=== PATIENT | female | born 1955 | race Caucasian/White ===

== ENCOUNTER 2022-10-16 10:04 | Inpatient (IN) ==
[2022-10-16] MEDS ORDERED: ALBUT/IPRATROP 3MG/0.5MG NEB 3 ML VIAL NEB STA (10:33)
[2022-10-16 10:54] LABS: Basophils % (auto) 0.8 %; Eosinophils # (auto) 0.03 K/uL (0-0.50); Eosinophils % (auto) 0.2 %; Hematocrit (blood only) 37.1 % (34.1-44.9); Hemoglobin 12.7 g/dl (12.0-16.0); Immature Granulocytes # (auto) 0.04 K/uL (0.00-0.02); Immature Granulocytes % (auto) 0.3 %; Lymphocytes # (auto) 1.56 K/uL (1.2-3.4); Lymphocytes % (auto) 12.4 %; Mean Corpuscular Hemoglobin 33.1 pg (25.0-34.0); Mean Corpuscular Hgb Conc 34.2 g/dL (32.0-36.0); Mean Corpuscular Volume 96.6 fL (80.0-100.0); Mean Platelet Volume 9.5 fL (9.4-12.3); Monocytes # (auto) 1.15 K/uL (0.24-0.82); Monocytes % (auto) 9.1 %; Neutrophils # (auto) 9.75 K/uL (1.4-6.5); Neutrophils % (auto) 77.2 %; Platelet Count 360 K/uL (130-400); RDW Coefficient of Variation 12.3 % (11.5-14.5); RDW Standard Deviation 43.8 fL (36.4-46.3); Red Blood Count 3.84 M/uL (3.93-5.22); White Blood Count 12.63 K/ul (4.8-10.8)
[2022-10-16] MEDS ORDERED: SODIUM CHLORIDE 0.9% 1000ML 500 ML IV ONE (10:56)
--- NOTE | 2022-10-16 10:58 | XRay Report ---
XR chest 1V portable HISTORY: Dyspnea COMPARISON: None. FINDINGS: No pneumothorax. No pleural effusions. The lungs are hyperexpanded with apical predominant emphysematous changes. Mild diffuse interstitial thickening. This is likely chronic. Otherwise, no fo charito lung consolidations to suggest a pneumonia. No evidence for pulmonary edema. There is an old, hea led left clavicle fracture. IMPRESSION: Emphysema and mild interstitial thickening. This is likely chronic. ACT 112: Negative or not required by law. Electronically signed by: Giancarlo Faulkner M.D. 10/16/2022 10:57 AM
[2022-10-16 11:04] LABS: Albumin Globulin Ratio 1.1 (0.9-2); Albumin Level 4.1 gm/dl (3.4-5.0); BUN Creatinine Ratio 12.5 (10-20); Bilirubin,Total 0.7 mg/dl (0.2-1.0); Calcium 9.7 mg/dl (8.5-10.1); Creatinine Clr Calc Pharmacy 84.9 ml/min; Est GFR (African American) 112.6 ml/min; Est GFR (Non-African American) 97.2 ml/min; Globulin 3.7 gm/dl (2.5-4.0); Magnesium 2.1 mg/dl (1.7-2.4); Potassium 3.3 mmol/L (3.5-5.1); Total Protein 7.8 gm/dl (6.0-8.3)
--- NOTE | 2022-10-16 11:05 | Emergency Department Note ---
Impression & Plan Respiratory distress, COPD exacerbation, Tachypnea, Leukocytosis, Hypokalemia ED Provider Note NAME: SHARON LEWIS AGE: 67 SEX: F : 1955 ARRIVES VIA: Ambulance INFORMANT: [Patient][nursing] ED PROVIDER(S): [Ted Houston MD] CHIEF COMPLAINT: Shortness of breath HISTORY OF PRESENT ILLNESS: The patient is a 67-year-old female who presents with complaints of shortness of breath for the last 4 to 5 days. Things just kept getting worse. The patient went to urgent care and was sent from that facility by ambulance to our ER. The patient was given an albuterol neb at urgent care and then 2 DuoNeb's in route. She also received 125 mg of IV Solu-Medrol by EMS. She still feels short of breath. The patient is coughing but this is baseline. She does not typically wear oxygen but does have a history of COPD. She denies any fever or chills. She has no abdominal pain or chest pain. She is not sure why her lungs seem to be worse this last week REVIEW OF SYSTEMS: See HPI for pertinent positives and negatives. A total of ten systems were reviewed and were otherwise negative. PMHx/PSHx: See Below SOCIAL HISTORY: See Below. PHYSICAL EXAM: GENERAL: Patient is in moderate respiratory distress HEENT: No acute trauma, normocephalic atraumatic, mucous membranes moist, no nasal congestion, no scleral icterus. NECK: No stridor, no adenopathy, no meningismus, trachea is midline. LUNGS: Moderate respiratory distress, increased respiratory rate with some accessory muscle use. Wheezing bilaterally with diminished breath sounds bilaterally. Speaks in shorter sentences. HEART: Without murmurs gallops or rubs, regular rate and rhythm. ABDOMEN: Soft, nontender, bowel sounds positive, no peritonitis. EXTREMITIES: No cyanosis or edema, full range of motion of all the joints without pain or difficulty, no signs for acute trauma. There is a boot on the left lower extremity NEUROLOGIC: Oriented x 3, no acute motor or sensory deficits, no focal weakness. SKIN: No rash, no jaundice, no diaphoresis. DIFFERENTIAL DIAGNOSIS: Reactive airway disease, pneumonia, COVID-19, RSV, influenza, pneumothorax, COPD, CHF, infection, cardiac ischemia, pulmonary embolism, bronchitis, as well as other pathologies. EMERGENCY DEPARTMENT COURSE/PROCEDURES: ECG: Indication was shortness of breath. The ECG shows a normal sinus rhythm with a rate of 94. There is some baseline artifact. There is no obvious ST elevation, no PVCs. There is poor R wave progression. The QTc is 455. Continuous Cardiac Monitoring: An order was placed for continuous cardiac monitoring. The monitor shows a rate of 92 with normal sinus rhythm. Critical Care Note: I have personally spent 39 minutes of critical care time in the direct management of this patient. This includes bedside care, interpretation of diagnostic studies, and testing, discussion with consultants, patient, and family members, and other required patient management activities. This 39 minutes is in excess of all separately billable procedures. MEDICAL DECISION MAKING: There is a mild leukocytosis, this could be consistent with infection or the stress of her situation. There was a normal hemoglobin and platelet count. No coagulopathy. Potassium somewhat low at 3.3. No renal failure. No worrisome liver enzyme elevation. ECG showed a normal sinus rhythm, no ischemia. Cardiac enzyme testing x1 was not consistent with acute cardiac injury. Procalcitonin level was not elevated making bacterial infection less likely. COVID, influenza and RSV test were negative. Chest x-ray did not show pneumonia or CHF. Chest CT did not show PE, a potential pneumonia versus bronchitis was seen on the CT imaging. The patient had already received 3 nebulizer treatments. I did give her a fourth treatment with a DuoNeb. She had received Solu-Medrol in route so no additional steroids were given. She was given a 500 cc saline bolus, she was given IV potassium. He received IV ceftriaxone as antibiotic coverage. The patient presents short of breath. She was in respiratory distress. She was aggressively managed. She seems to be improving with the above treatment. I do think a hospital stay is warranted. She appears to have an underlying pneumonia that has flared her COPD. She understands the need to stay in the hospital. I did speak with case management, the on-call hospitalist was consulted. Past Med/Surg History Medical History Anxiety Anxiety COPD (chronic obstructive pulmonary disease) Depression Hyperlipidemia Personal history of alcoholism Tobacco use disorder Surgical History No pertinent past surgical history Family History Mother CHF (congestive heart failure) Father Prostate cancer Aunt Breast cancer Social History Smoking Status: Current every day smoker Tobacco Type: Cigarettes Hx Alcohol Use: Yes Alcohol type: beer Alcohol Intake Frequency: 4 or More x per/Week Alcohol Intake Frequency Comment: 4 beers/day Hx Substance Use: Yes Non-Prescribed Medications: Marijuana Preferred Language: Urdu 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: No Beliefs That Will Affect Care: None Current Living Situation: Alone Feels Safe at Home: Yes Allergies Allergies Allergy/AdvReac Type Severity Reaction Status Date / Time No Known Allergies Allergy Unverified 05/05/21 01:40 Home Meds Home Medications Medication Instructions Recorded Confirmed fluoxetine 40 mg capsule (Prozac) 60 mg PO DAILY 06/12/20 10/16/22 albuterol sulfate 90 mcg/actuation 2 puff inhalation Q4 PRN Shortness 07/12/20 10/16/22 aerosol inhaler Of Breath Or Wheezing hydroxyzine HCl 25 mg tablet 25 mg PO Q6 PRN anxiety 07/13/20 10/16/22 bupropion HCl 100 mg tablet,12 hr 100 mg PO QAM 05/05/21 10/16/22 sustained-release gabapentin 400 mg capsule 400 mg PO TID 05/05/21 10/16/22 atorvastatin 20 mg tablet 20 mg PO DAILY 10/16/22 10/16/22 fluticasone 250 mcg-salmeterol 50 1 ea inhalation BID 10/16/22 10/16/22 mcg/dose blistr powdr for inhalation Results & Data (ED) Vital Signs Vital Signs - 24 hr 10/16/22 10:24 10/16/22 10:23 10/16/22 10:23 Temperature 36.6 C Temperature Source Oral Pulse Rate 92 H Pulse Rate [Apical] Respiratory Rate 28 H Respiratory Effort / Characteristics Labored Labored Short of Breath Respiratory Depth Shallow Shallow Blood Pressure 170/97 H Blood Pressure Mean 121 Pulse Oximetry 98 Oxygen Delivery Method Nasal Cannula Nasal Cannula Nasal Cannula Oxygen Flow Rate 2 2 2 Sepsis Recent Fever Within 48 Hours No Sepsis New/Unexplained Change in Mental Status N/A Sepsis Action Taken by Nursing No Action Required 10/16/22 11:03 Temperature Temperature Source Pulse Rate Pulse Rate [Apical] 95 H Respiratory Rate 25 H Respiratory Effort / Characteristics Labored Respiratory Depth Shallow Blood Pressure Blood Pressure Mean Pulse Oximetry 100 Oxygen Delivery Method Nasal Cannula Oxygen Flow Rate 2 Sepsis Recent Fever Within 48 Hours Sepsis New/Unexplained Change in Mental Status Sepsis Action Taken by [facility] Medications Current Medication List: was personally reviewed by me Laboratory Data Attestation: I reviewed the patient's lab results. Result diagrams: 10/16/22 10:10/16/22 10: Lab Results 10/16/22 10/16/22 10/16/22 Range/Units 10: 10: 10: WBC 12.63 H (4.8-10.8) K/ul RBC 3.84 L (3.93-5.22) M/uL Hgb 12.7 (12.0-16.0) g/dl Hct 37.1 (34.1-44.9) % MCV 96.6 (80.0-100.0) fL MCH 33.1 (25.0-34.0) pg MCHC 34.2 (32.0-36.0) g/dL RDW Std Deviation 43.8 (36.4-46.3) fL RDW Coeff of Reyes 12.3 (11.5-14.5) % Plt Count 360 (130-400) K/uL MPV 9.5 (9.4-12.3) fL Immature Gran % (Auto) 0.3 % Neut % (Auto) 77.2 % Lymph % (Auto) 12.4 % Baxter % (Auto) 9.1 % Eos % (Auto) 0.2 % Baso % (Auto) 0.8 % Neut # (Auto) 9.75 H (1.4-6.5) K/uL Lymph # (Auto) 1.56 (1.2-3.4) K/uL Baxter # (Auto) 1.15 H (0.24-0.82) K/uL Eos # (Auto) 0.03 (0-0.50) K/uL Baso # (Auto) 0.10 (0-0.2) K/uL Immature Gran # (Auto) 0.04 H (0.00-0.02) K/uL PT 10.4 (9.0-12.0) Seconds INR 1.0 (0.9-1.1) APTT 28.5 (21.0-31.0) Seconds PTT Ratio 1.0 Sodium 137 (136-145) mmol/L Potassium 3.3 L (3.5-5.1) mmol/L Chloride 100 (98-107) mmol/L Carbon Dioxide 26 (21-32) mmol/L Anion Gap 11 (3-11) BUN 7 (6-23) mg/dl Creatinine 0.56 L (0.6-1.2) mg/dl Est Cr Clr Drug Dosing 84.9 ml/min Est GFR ( Amer) 112.6 ml/min Est GFR (Non-Af Amer) 97.2 ml/min BUN/Creatinine Ratio 12.5 (10-20) Glucose 134 H (70-99(Fasting)) mg/dl Calcium 9.7 (8.5-10.1) mg/dl Magnesium 2.1 (1.7-2.4) mg/dl Total Bilirubin 0.7 (0.2-1.0) mg/dl AST 11 L (13-39) U/L ALT 9 (7-52) U/L Alkaline Phosphatase 160 H (34-104) U/L Troponin I High Sens 8.2 (0-14) pg/ml Total Protein 7.8 (6.0-8.3) gm/dl Albumin 4.1 (3.4-5.0) gm/dl Globulin 3.7 (2.5-4.0) gm/dl Albumin/Globulin Ratio 1.1 (0.9-2) Procalcitonin (0-0.5) ng/ml SARS-CoV-2 (PCR) (Negative) Influenza Type A (PCR) (Neg) Influenza Type B (PCR) (Neg) RSV (RT-PCR) (Neg) 10/16/22 10/16/22 Range/Units 10:23 10:23 WBC (4.8-10.8) K/ul RBC (3.93-5.22) M/uL Hgb (12.0-16.0) g/dl Hct (34.1-44.9) % MCV (80.0-100.0) fL MCH (25.0-34.0) pg MCHC (32.0-36.0) g/dL RDW Std Deviation (36.4-46.3) fL RDW Coeff of Reyes (11.5-14.5) % Plt Count (130-400) K/uL MPV (9.4-12.3) fL Immature Gran % (Auto) % Neut % (Auto) % Lymph % (Auto) % Baxter % (Auto) % Eos % (Auto) % Baso % (Auto) % Neut # (Auto) (1.4-6.5) K/uL Lymph # (Auto) (1.2-3.4) K/uL Baxter # (Auto) (0.24-0.82) K/uL Eos # (Auto) (0-0.50) K/uL Baso # (Auto) (0-0.2) K/uL Immature Gran # (Auto) (0.00-0.02) K/uL PT (9.0-12.0) Seconds INR (0.9-1.1) APTT (21.0-31.0) Seconds PTT Ratio Sodium (136-145) mmol/L Potassium (3.5-5.1) mmol/L Chloride (98-107) mmol/L Carbon Dioxide (21-32) mmol/L Anion Gap (3-11) BUN (6-23) mg/dl Creatinine (0.6-1.2) mg/dl Est Cr Clr Drug Dosing ml/min Est GFR ( Amer) ml/min Est GFR (Non-Af Amer) ml/min BUN/Creatinine Ratio (10-20) Glucose (70-99(Fasting)) mg/dl Calcium (8.5-10.1) mg/dl Magnesium (1.7-2.4) mg/dl Total Bilirubin (0.2-1.0) mg/dl AST (13-39) U/L ALT (7-52) U/L Alkaline Phosphatase (34-104) U/L Troponin I High Sens (0-14) pg/ml Total Protein (6.0-8.3) gm/dl Albumin (3.4-5.0) gm/dl Globulin (2.5-4.0) gm/dl Albumin/Globulin Ratio (0.9-2) Procalcitonin 0.13 (0-0.5) ng/ml SARS-CoV-2 (PCR) NEGATIVE (Negative) Influenza Type A (PCR) Negative (Neg) Influenza Type B (PCR) Negative (Neg) RSV (RT-PCR) Negative (Neg) Administered Medications Albuterol (Albut/Ipratrop 3mg/0.5mg Neb 3 Ml Vial) 3 ml NEB QIDR PHYLLIS; Protocol Stop: 11/15/22 14:59 Last Admin: 10/16/22 15:20 Dose: 3 ml Documented By: TMH Gabapentin (Gabapentin 400 Mg Cap) 400 mg PO TID PHYLLIS Stop: 11/15/22 14:14 Last Admin: 10/16/22 15:08 Dose: 400 mg Documented By: SUB Hydroxyzine HCl (Hydroxyzine Hcl 25 Mg Tab) 25 mg PO Q6 PRN PRN Reason: anxiety Stop: 11/15/22 13:50 Last Admin: 10/16/22 15:58 Dose: 25 mg Documented By: SUB Azithromycin 500 mg/ Dextrose 255 mls @ 125 mls/hr IV Q24H PHYLLIS Stop: 10/23/22 14:14 Last Admin: 10/16/22 15:09 Dose: 125 mls/hr Documented By: SUB Methylprednisolone 40 mg/ (Syringe) 0.64 mls @ 1.5 mls/min IV Q6H PHYLLIS Stop: 11/15/22 14:14 Last Admin: 10/16/22 15:08 Dose: 1.5 mls/min Documented By: SUB Discontinued Medications Albuterol (Albut/Ipratrop 3mg/0.5mg Neb 3 Ml Vial) 3 ml NEB NOW STA; Protocol Stop: 10/16/22 10:34 Last Admin: 10/16/22 10:57 Dose: 3 ml Documented By: AMS Sodium Chloride (Nss 1000ml) 500 mls @ 999 mls/hr IV .Q31M ONE Stop: 10/16/22 11:26 Last Infusion: 10/16/22 14:16 Dose: 0 mls/hr Documented By: Admin: 10/16/22 11:08 Dose: 999 mls/hr Documented By: HS Potassium Chloride (K Travis / Wtr) 10 meq in 100 mls @ 100 mls/hr IV ONE ONE; Protocol Stop: 10/16/22 12:05 Last Infusion: 10/16/22 14:16 Dose: 0 mls/hr Documented By: Admin: 10/16/22 12:13 Dose: 100 mls/hr Documented By: AMS Ceftriaxone Sodium (Rocephin) 2,000 mg in 70 mls @ 140 mls/hr IV NOW STA Stop: 10/16/22 12:41 Last Infusion: 10/16/22 14:16 Dose: 0 mls/hr Documented By: Admin: 10/16/22 13:29 Dose: 140 mls/hr Documented By: HS Multivitamins 10 ml/ Thiamine HCl 100 mg/ Folic Acid 1 mg/Sodium Chloride 1,011.2 mls @ 500 mls/hr IV .Q2H2M ONE Stop: 10/16/22 16:16 Last Admin: 10/16/22 15:08 Dose: 500 mls/hr Documented By: SUB Ioversol (Optiray 320 500ml) 120 ml IV ONCE ONE Stop: 10/16/22 11:32 Last Admin: 10/16/22 11:32 Dose: 120 ml Documented By: SEJ Imaging Data Radiologist's Impression: Chest X-Ray 10/16/22 10:33 XR chest 1V portable HISTORY: Dyspnea COMPARISON: None. FINDINGS: No pneumothorax. No pleural effusions. The lungs are hyperexpanded with apical predominant emphysematous changes. Mild diffuse interstitial thickening. This is likely chronic. Otherwise, no focal lung consolidations to suggest a pneumonia. No evidence for pulmonary edema. There is an old, healed left clavicle fracture. IMPRESSION: Emphysema and mild interstitial thickening. This is likely chronic. ACT 112: Negative or not required by law. Electronically signed by: Giancarlo Faulkner M.D. 10/16/2022 10:57 AM Chest CTA 10/16/22 10:55 CT angio chest PE protocol CLINICAL HISTORY: PE TECHNIQUE: Multidetector row helical CT of the chest was performed with angiographic protocol. Coronal and sagittal reformations were obtained. Coronal and sagittal MIPS were obtained from the axial data set and were submitted for review. Automated dose lowering techniques and/or adjustment according to patient size were utilized for this exam. CT DOSE: 259.87 mGy.cm Comparison: Comparison is made to chest radiograph 10/16/2022 FINDINGS: Exam is limited by patient motion. Lungs and pleura: Bronchial wall thickening is seen throughout. Scattered g roundglass opacities are seen most prominently in the bilateral upper lobe and left lower lobe. Heart and pericardium: Cardiomegaly is seen with biatrial enlargement. Vessels: No evidence of pulmonary embolism. Incidental note is made of dominant left vertebral artery with miniscule right vertebral artery. Mediastinum and kalyn: Subcentimeter lymph nodes are seen. Chest wall and lower neck: Unremarkable. Abdomen: Unremarkable. Bones: Degenerative changes of the thoracic spine. Old healed rib fractures are seen. Compression deformity of T9 is noted. IMPRESSION: 1. No evidence of pulmonary embolism. 2. Bronchial wall thickening is noted with scattered groundglass opacities, compatible with bronchitis and pneumonia. Follow-up to resolution is recommended. ACT 112: Negative or not required by law. Electronically signed by: Cole Scott M.D. 10/16/2022 12:02 PM Discharge Plan Visit Data Chief Complaint: Shortness of Breath/Dyspnea Stated Complaint: RESP. DIFF. ED Provider: Ted Houston Discharge Problem: Respiratory distress, COPD exacerbation, Tachypnea, Leukocytosis, Hypokalemia Patient Disposition: Admitted As Inpatient Condition: Fair Discharge Instructions Interventions: ED Discharge Assessment Last Done: 10/16/22 13:30
[2022-10-16] MEDS ORDERED: POTASSIUM CHLORIDE / WTR 10 MEQ/100 ML PLCT IV ONE (11:06)
[2022-10-16 11:10] LABS: Troponin I High Sensitivity 8.2 pg/ml (0-14)
[2022-10-16 11:20] LABS: Partial Thromboplastin Time 28.5 Seconds (21.0-31.0); Prothrombin Time 10.4 Seconds (9.0-12.0)
[2022-10-16] MEDS ORDERED: OPTIRAY 320 500ml IV ONE (11:31)
[2022-10-16 11:37] LABS: Influenza A virus by PCR Negative (Neg); Influenza B virus by PCR Negative (Neg); RSV by PCR Negative (Neg); SARS CoV2 RNA(COVID-19)Cepheid NEGATIVE (Negative)
--- NOTE | 2022-10-16 12:03 | CT Scan Report ---
CT angio chest PE protocol CLINICAL HISTORY: PE TECHNIQUE: Multidetector row helical CT of the chest was performed with angiographic protocol. Muller l and sagittal reformations were obtained. Coronal and sagittal MIPS were obtained from the axial vidhya a set and were submitted for review. Automated dose lowering techniques and/or adjustment according to patient size were utilized for this exam. CT DOSE: 259.87 mGy.cm Comparison: Comparison is made to chest radiograph 10/16/2022 FINDINGS: Exam is limited by patient motion. Lungs and pleura: Bronchial wall thickening is seen throughout. Scattered groundglass opacities are s een most prominently in the bilateral upper lobe and left lower lobe. Heart and pericardium: Cardiomegaly is seen with biatrial enlargement. Vessels: No evidence of pulmonary embolism. Incidental note is made of dominant left vertebral artery with miniscule right vertebral artery. Mediastinum and kalyn: Subcentimeter lymph nodes are seen. Chest wall and lower neck: Unremarkable. Abdomen: Unremarkable. Bones: Degenerative changes of the thoracic spine. Old healed rib fractures are seen. Compression def ormity of T9 is noted. IMPRESSION: 1. No evidence of pulmonary embolism. 2. Bronchial wall thickening is noted with scattered groundglass opacities, compatible with bronchit is and pneumonia. Follow-up to resolution is recommended. ACT 112: Negative or not required by law. Electronically signed by: Cole Scott M.D. 10/16/2022 12:02 PM
--- NOTE | 2022-10-16 12:06 | History & Physical Report ---
Date of Service October 16, 2022 Assessment & Plan (1) COPD exacerbation: Plan: Copd exacerbation 2/2 pneumonia in active smoker with underlying health problems and alcoholism. Cont with Solumedrol 40mg IV q6h, scheduled Duonebs, and antibiotics. Will use oxygen, titrating to a goal of 88% saturation. Would remove the oxygen if she is consistently oxygenating >94%. Smoking cessation advised. She reports already receiving her annual flu shot and reports having a Pneumovax in the past, also. (2) Pneumonia: Plan: Cont antibiotics, flutter valve. Sputum culture. Blood cultures. Oxygen s upplementation as needed. Smoking cessation advised. (3) Anxiety: Plan: She reports this is uncontrolled. May become worse if she withdraws from alcohol. Will monitor her closely and cont home antidepressant. (4) Tobacco use disorder: Plan: Nicoderm ordered. Smoking cessation advised. (5) Depression: Plan: chronic, stable. Cont home antidepressant. (6) Hyperlipidemia: Plan: chronic, stable. Patient reports non compliance with atorvastatin because she forgets to take it. Cont atorvastatin daily. (7) DVT prophylaxis: Plan: heparin Full code as per my armen discussion with her on admission. Dispo-to PCU. [facility] Present Illness Chief Complaint: SOB/dyspnea Primary Care Provider: Gray Diehl MD 67 yo F reports SOB x 5 days that is progressive. She has a h/o COPD and has already been treated wtih a nebulized bronchodilator and solumedrol 125mg IV. She is not typically on oxygen and requiring 2LPM via nasal canula today. This morning she used her albuterol and Advair at home and had no relief. She went to [facility] and there she was oxygenating 97% on room air but was so short of breath she was unable to speak in full sentences. EMS was called to bring her to the ER. Symptoms started on Sat, denies fevers, chills, no sick contacts. Can't sleep because she has trouble laying flat as it makes her cough. Explosive stools that are in the am, no diarrhea. Poor appetite recently. Alcohol intake is reported as 5-6 beers/day. She smokes marijuana daily. 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 Reports that her anxiety has not been controlled recently. Walks with a cane. Lives alone. Allergies Allergy/AdvReac Type Severity Reaction Status Date / Time No Known Allergies Allergy Unverified 05/05/21 01:40 Home Medications Medication Instructions Recorded Confirmed Type fluoxetine 40 mg capsule (Prozac) 60 mg PO DAILY 06/12/20 10/16/22 History albuterol sulfate 90 mcg/actuation 2 puff inhalation Q4 PRN Shortness 07/12/20 10/16/22 History aerosol inhaler Of Breath Or Wheezing hydroxyzine HCl 25 mg tablet 25 mg PO Q6 PRN anxiety 07/13/20 10/16/22 History bupropion HCl 100 mg tablet,12 hr 100 mg PO QAM 05/05/21 10/16/22 History sustained-release gabapentin 400 mg capsule 400 mg PO TID 05/05/21 10/16/22 History atorvastatin 20 mg tablet 20 mg PO DAILY 10/16/22 10/16/22 History fluticasone 250 mcg-salmeterol 50 1 ea inhalation BID 10/16/22 10/16/22 History mcg/dose blistr powdr for inhalation Past Med/Surg History Medical History Anxiety Anxiety COPD (chronic obstructive pulmonary disease) Depression Hyperlipidemia Personal history of alcoholism Tobacco use disorder Surgical History No pertinent past surgical history Family History Mother CHF (congestive heart failure) Father Prostate cancer Aunt Breast cancer Social History Smoking Status: Current every day smoker Tobacco Type: Cigarettes Hx Alcohol Use: Yes Alcohol type: beer Alcohol Intake Frequency: 4 or More x per/Week Alcohol Intake Frequency Comment: 4 beers/day Hx Substance Use: Yes Non-Prescribed Medications: Marijuana Preferred Language: [employer] Required: No Beliefs That Will Affect Care: None Current Living Situation: Alone Feels Safe at Home: Yes Review of Systems Review of Systems: All systems were reviewed and negative except as indicated in HPI above. Physical Exam Physical Exam: CONSTITUTIONAL: thin, frail, vitals as above, generally is ill appearing but in no acute distress. EYES: pupils are round and equal bilaterally, normal conjunctivae, no scleral icterus, ENT: external ear and nose normal, thrush on tongue, MMM NECK: trachea midline, RESPIRATORY: wheezing throughout all lung ferguson, mild respiratory distress CARDIOVASCULAR: tachy rate and regular rhythm, S1 and 2 heard without murmurs, gallops or rubs, no JVD, no peripheral edema CHEST: inspection of chest was normal GASTROINTESTINAL: soft, nontender, ND, no guarding MUSCULOSKELETAL: strength 5/5 throughout, able to sit up independently, head is normocephalic and atraumatic SKIN: warm and dry NEUROLOGIC: CN 2-12 grossly intact, no sensory deficit, normal cognition, normal speech PSYCHIATRIC: alert cooperative and oriented to person, place and time. Euthymic mood, makes good eye contact, language grossly intact, recent and remote memory grossly intact. Results & Data Results & Data ([facility]) Vital Signs (Past 12 Hours) Vital Signs Temp Pulse Pulse Resp BP Pulse Ox O2 Del Method 10/16/22 11:03 95 H 25 H 100 Nasal Cannula 10/16/22 10:23 Nasal Cannula 10/16/22 10:23 Nasal Cannula 10/16/22 10:24 36.6 C 92 H 28 H 170/97 H 98 Nasal Cannula O2 Flow Rate 10/16/22 11:03 2 10/16/22 10:23 2 10/16/22 10:23 2 10/16/22 10:24 2 Laboratory Results Short CBC 10/16/22 Range/Units 10:23 WBC 12.63 H (4.8-10.8) K/ul Hgb 12.7 (12.0-16.0) g/dl Hct 37.1 (34.1-44.9) % Plt Count 360 (130-400) K/uL BMP 10/16/22 10:23 Sodium 137 Potassium 3.3 L Chloride 100 Carbon Dioxide 26 BUN 7 Creatinine 0.56 L Glucose 134 H Calcium 9.7 Liver Function 10/16/22 Range/Units 10:23 Total Bilirubin 0.7 (0.2-1.0) mg/dl AST 11 L (13-39) U/L ALT 9 (7-52) U/L Alkaline Phosphatase 160 H (34-104) U/L Albumin 4.1 (3.4-5.0) gm/dl Diagnostic Findings Chest CTA 10/16/22 10:55 CT angio chest PE protocol CLINICAL HISTORY: PE TECHNIQUE: Multidetector row helical CT of the chest was performed with angiographic protocol. Coronal and sagittal reformations were obtained. Coronal and sagittal MIPS were obtained from the axial data set and were submitted for review. Automated dose lowering techniques and/or adjustment according to patient size were utilized for this exam. CT DOSE: 259.87 mGy.cm Comparison: Comparison is made to chest radiograph 10/16/2022 FINDINGS: Exam is limited by patient motion. Lungs and pleura: Bronchial wall thickening is seen throughout. Scattered groundglass opacities are seen most prominently in the bilateral upper lobe and left lower lobe. Heart and pericardium: Cardiomegaly is seen with biatrial enlargement. Vessels: No evidence of pulmonary embolism. Incidental note is made of dominant left vertebral artery with miniscule right vertebral artery. Mediastinum and kalyn: Subcentimeter lymph nodes are seen. Chest wall and lower neck: Unremarkable. Abdomen: Unremarkable. Bones: Degenerative changes of the thoracic spine. Old healed rib fractures are seen. Compression deformity of T9 is noted. IMPRESSION: 1. No evidence of pulmonary embolism. 2. Bronchial wall thickening is noted with scattered groundglass opacities, compatible with bronchitis and pneumonia. Follow-up to resolution is recommended. ACT 112: Negative or not required by law. Electronically signed by: Cole Scott M.D. 10/16/2022 12:02 PM Chest X-Ray 10/16/22 10:33 XR chest 1V portable HISTORY: Dyspnea COMPARISON: None. FINDINGS: No pneumothorax. No pleural effusions. The lungs are hyperexpanded with apical predominant emphysematous changes. Mild diffuse interstitial thickening. This is likely chronic. Otherwise, no focal lung consolidations to suggest a pneumonia. No evidence for pulmonary edema. There is an old, healed left clavicle fracture. IMPRESSION: Emphysema and mild interstitial thickening. This is likely chronic. ACT 112: Negative or not required by law. Electronically signed by: Giancarlo Faulkner M.D. 10/16/2022 10:57 AM Code Status & VTE Plan VTE Prophylaxis Plan VTE Prophylaxis will be ordered: Yes
[2022-10-16] MEDS ORDERED: cefTRIAXone SODIUM 2,000 MG/70 ML BAG IV STA (12:12)
--- NOTE | 2022-10-16 12:23 | Electrocardiogram Report ---
Test Reason : Blood Pressure : / mmHG Vent. Rate : 094 BPM Atrial Rate : 094 BPM P-R Int : 168 ms QRS Dur : 070 ms QT Int : 364 ms P-R-T Axes : 076 026 091 degrees QTc Int : 455 ms Poor data quality, interpretation may be adversely affected Normal sinus rhythm Diffuse Minor Nonspecific T wave abnormality Abnormal ECG No previous ECGs available Confirmed by Toñito Pugh ([id number]) on 10/16/2022 12:23:26 PM Referred By: Confirmed By:Toñito Pugh
[2022-10-16] MEDS ORDERED: LORazepam 1 MG TAB PO PRN (13:51)
[2022-10-16] MEDS ORDERED: MULTI-VITAMIN INFUSION 10 ML, THIAMINE HCL 100 MG, FOLIC ACID 1 MG in SODIUM CHLORIDE 0... IV ONE (14:15)
[2022-10-16] MEDS: methylPREDNISolone 40 MG in SYRINGE 0 ML IV SCH ×2 (15:08→19:16)
[2022-10-16] MEDS: GABAPENTIN 400 MG CAP PO SCH ×2 (15:08→20:38)
[2022-10-16] MEDS: AZITHROMYCIN 500 MG in DEXTROSE 5% 250 ML IV SCH (15:09)
[2022-10-16] MEDS: ALBUT/IPRATROP 3MG/0.5MG NEB 3 ML VIAL NEB SCH ×2 (15:20→19:10)
[2022-10-16] MEDS: hydrOXYzine HCl 25 MG TAB PO PRN ×2 (15:58→20:38)
[2022-10-16 16:44] LABS: Appearance Urine Clear (Clear); Bilirubin Urine Negative (Negative); Blood Urine Negative (Negative); Color Urine Yellow; Glucose Urine UA 1+ (Negative); Ketones Urine Negative (Negative); Leukocyte Esterase Urine Negative (Negative); Nitrite Urine Negative (Negative); Protein Urine Negative (Negative); Specific Gravity Urine 1.018 (1.000-1.030); Urobilinogen Urine Negative (Negative); pH Urine 6.5 (4.5-7.5)
[2022-10-16] MEDS: NYSTATIN SUSP 500,000 U/5 ML UDC PO SCH ×2 (17:29→20:38)
[2022-10-16] MEDS: HEPARIN SOD 5,000 UNIT/0.5 ML VIAL SQ SCH (20:38)
[2022-10-17] MEDS: methylPREDNISolone 40 MG in SYRINGE 0 ML IV SCH ×4 (01:59→23:31)
[2022-10-17] MEDS: hydrOXYzine HCl 25 MG TAB PO PRN (01:59)
[2022-10-17] MEDS ORDERED: LORazepam 0.5 MG in SYRINGE 0 ML IV PRN (02:24)
[2022-10-17] MEDS ORDERED: Ativan IV Alcohol Withdrawal--Active Protocol IV PRN ×2 (02:24→09:54)
[2022-10-17] MEDS ORDERED: LORazepam 1 MG in SYRINGE 0 ML IV PRN ×2 (02:24→09:54)
[2022-10-17] MEDS ORDERED: LORazepam 2 MG in SYRINGE 0 ML IV PRN ×2 (02:24→09:54)
[2022-10-17 04:54] LABS: Base Excess ABG -0.8 mEq/L (-9-1.8); HCO3 ABG 24 mmol/L (19-24); Oxygen Saturation ABG 98.5 % (90-95); PCO2 ABG 41 mmHg (35-46); PO2 ABG 186 mmHg (80-95); pH ABG 7.38 (7.35-7.45)
[2022-10-17 04:59] LABS: Allen Test Pos (Pos)
[2022-10-17 06:30] LABS: Hematocrit (blood only) 35.3 % (34.1-44.9); Hemoglobin 11.9 g/dl (12.0-16.0); Mean Corpuscular Hemoglobin 32.4 pg (25.0-34.0); Mean Corpuscular Hgb Conc 33.7 g/dL (32.0-36.0); Mean Corpuscular Volume 96.2 fL (80.0-100.0); Mean Platelet Volume 9.4 fL (9.4-12.3); Platelet Count 369 K/uL (130-400); RDW Coefficient of Variation 12.2 % (11.5-14.5); RDW Standard Deviation 43.3 fL (36.4-46.3); Red Blood Count 3.67 M/uL (3.93-5.22); White Blood Count 9.91 K/ul (4.8-10.8)
[2022-10-17 06:44] LABS: BUN Creatinine Ratio 16.3 (10-20); Calcium 9.2 mg/dl (8.5-10.1); Creatinine Clr Calc Pharmacy 85.6 ml/min; Est GFR (African American) 117.7 ml/min; Est GFR (Non-African American) 101.5 ml/min; Potassium 3.4 mmol/L (3.5-5.1)
[2022-10-17] MEDS: ALBUT/IPRATROP 3MG/0.5MG NEB 3 ML VIAL NEB SCH ×4 (07:06→20:00)
[2022-10-17] MEDS: NYSTATIN SUSP 500,000 U/5 ML UDC PO SCH ×4 (08:32→20:50)
[2022-10-17] MEDS: FOLIC ACID 1 MG TAB PO SCH (08:33)
[2022-10-17] MEDS: ATORVASTATIN 20 MG TAB PO SCH (08:33)
[2022-10-17] MEDS: THIAMINE HCL 100 MG TAB PO SCH (08:33)
[2022-10-17] MEDS: FLUTICASONE/VILANTEROL 100/25MCG 14 PUFFS/INHALER INH SCH (08:33)
[2022-10-17] MEDS: GABAPENTIN 400 MG CAP PO SCH (08:34)
[2022-10-17] MEDS: HEPARIN SOD 5,000 UNIT/0.5 ML VIAL SQ SCH ×2 (08:34→20:52)
[2022-10-17] MEDS: FLUoxetine HCL 20 MG CAP PO SCH (08:34)
[2022-10-17] MEDS: buPROPion SR 100 MG TABCR PO SCH (08:34)
[2022-10-17] MEDS ORDERED: ENOXAPARIN INJ 40 MG/0.4 ML SYR SQ SCH (09:00)
[2022-10-17] MEDS: cefTRIAXone SODIUM 1,000 MG in DEXTROSE 5% 50 ML IV SCH (09:35)
--- NOTE | 2022-10-17 09:53 | Hospitalist Progress Note ---
Date of Service October 17, 2022 Assessment & Plan (1) COPD exacerbation: Plan: Acute respiratory failure, with Hypoxia per admitting [facility] notes with addendum: Copd exacerbation 2/2 pneumonia in active smoker with underlying health problems and alcoholism. Cont with Solumedrol 40mg IV q6h, scheduled Duonebs, and antibiotics. Will use oxygen, titrating to a goal of 88% saturation. Would remove the oxygen if she is consistently oxygenating >94%. Smoking cessation advised. She reports already receiving her annual flu shot and reports having a Pneumovax in the past, also. 10/17 Seems to be clinically improving Continue DuoNeb 4 times daily, Solu-Medrol 40 every 8 hours, management of pneumonia per below (2) Pneumonia: Plan: Sputum culture: Pending Blood cultures: Pending Continue ceftriaxone plus azithromycin (3) Anxiety: Plan: Alcohol use Last drink 2 days ago Drinks 5 to 6 cans of beer per day Start gabapentin protocol with as needed Ativan Monitor closely (4) Tobacco use disorder: Plan: Nicoderm ordered. Smoking cessation advised. (5) Depression: Plan: chronic, stable. Cont home antidepressant. (6) Hyperlipidemia: Plan: chronic, stable. Patient reports non compliance with atorvastatin because she forgets to take it. Cont atorvastatin daily. (7) DVT prophylaxis: Plan: heparin Full code as per my armen discussion with her on admission. Dispo-anticipate discharge to home medically stable plan of care discussed with patient in detail and at length all questions answered she is understanding, agreeable, comfortable with the plan of care Admission and Anticipated Discharge Date Admission Date: October 16, 2022 Subjective Follow-up for COPD exacerbation, pneumonia, etc. Seen resting in bedside chair, comfortable, not distressed On 2 L of oxygen via nasal cannula States she feels improved today compared to yesterday Breathing starting to improve Reports productive cough Able to expectorate sputum better No chest pain, palpitation, dizziness Reports feeling somewhat anxious denies hallucinations, sweating Review of Systems Review of Systems: all noted and negative except for above Physical Exam Physical Exam: General- oriented x 3, not in distress, speaks in sentences with no effort or accessory muscle use Eyes- anicteric Neck- no JVD Lungs-mild wheezing bilaterally, with some crackles Good air entry bilaterally Heart- normal rate, regular rhythm; no murmurs Abdomen- normal bowel sounds, nondistended, soft, nontender Extremities- no pretibial edema, no calf tenderness Neuro- alert, oriented x 3; no gross focal neurologic deficits Skin- warm & dry Results & Data Results & Data ([facility]) Vital Signs (Past 12 Hours) Vital Signs Temp Pulse Pulse Resp BP Pulse Ox O2 Del Method 10/17/22 08:16 36.5 C 104 H 18 163/81 H 99 Nasal Cannula 10/17/22 08:00 Oxymask 10/17/22 07:50 91 H 10/17/22 07:08 95 H 22 95 Oxymask 10/17/22 02:27 36.8 C 91 H 20 127/88 98 Oxymask 10/17/22 02:15 36.3 C L 110 H 40 H 215/122 H 97 Oxymask 10/17/22 00:00 88 10/16/22 23:00 36.6 C 85 20 163/74 H 98 Oxymask O2 Flow Rate 10/17/22 08:16 3 10/17/22 08:00 10/17/22 07:50 10/17/22 07:08 5 10/17/22 02:27 6 10/17/22 02:15 6 10/17/22 00:00 10/16/22 23:00 6 all noted and reviewed including below
[2022-10-17] MEDS ORDERED: GABAPENTIN 800 MG TAB PO ONE (09:54)
[2022-10-17] MEDS ORDERED: GABAPENTIN 1200MG ALCOHOL WITHDRAWAL LOAD PO STA (09:54)
[2022-10-17] MEDS ORDERED: Ativan PO Alcohol Withdrawal--Active Protocol PO PRN (09:54)
[2022-10-17] MEDS ORDERED: LORazepam 3 MG in SYRINGE 0 ML IV PRN (09:54)
[2022-10-17] MEDS: AZITHROMYCIN 500 MG in DEXTROSE 5% 250 ML IV SCH (14:51)
[2022-10-17] MEDS: GABAPENTIN 600 MG TAB PO SCH ×2 (16:13→20:51)
[2022-10-17] MEDS: LORazepam 0.5 MG TAB PO PRN ×2 (16:25→20:50)
[2022-10-18] MEDS: LORazepam 0.5 MG TAB PO PRN ×4 (02:46→20:33)
[2022-10-18] MEDS: NICOTINE 21 MG/24 HR TDSY TD SCH (05:41)
[2022-10-18] MEDS: GABAPENTIN 600 MG TAB PO SCH ×3 (05:42→20:34)
[2022-10-18] MEDS: ALBUT/IPRATROP 3MG/0.5MG NEB 3 ML VIAL NEB SCH ×4 (06:58→20:05)
[2022-10-18] MEDS ORDERED: cloNIDine HCL 0.1 MG TAB PO ONE (07:06)
[2022-10-18] MEDS: FLUTICASONE/VILANTEROL 100/25MCG 14 PUFFS/INHALER INH SCH (08:27)
[2022-10-18] MEDS: cefTRIAXone SODIUM 1,000 MG in DEXTROSE 5% 50 ML IV SCH (08:31)
[2022-10-18] MEDS: HEPARIN SOD 5,000 UNIT/0.5 ML VIAL SQ SCH ×2 (08:32→20:33)
[2022-10-18] MEDS: methylPREDNISolone 40 MG in SYRINGE 0 ML IV SCH ×2 (08:39→19:56)
[2022-10-18] MEDS: ATORVASTATIN 20 MG TAB PO SCH (08:41)
[2022-10-18] MEDS: FOLIC ACID 1 MG TAB PO SCH (08:41)
[2022-10-18] MEDS: THIAMINE HCL 100 MG TAB PO SCH (08:41)
[2022-10-18] MEDS: buPROPion SR 100 MG TABCR PO SCH (08:41)
[2022-10-18] MEDS: FLUoxetine HCL 20 MG CAP PO SCH (08:41)
[2022-10-18] MEDS: NYSTATIN SUSP 500,000 U/5 ML UDC PO SCH ×4 (08:41→20:33)
[2022-10-18] MEDS: AZITHROMYCIN 500 MG in DEXTROSE 5% 250 ML IV SCH (13:47)
--- NOTE | 2022-10-18 15:32 | Hospitalist Progress Note ---
Date of Service October 18, 2022 Assessment & Plan (1) COPD exacerbation: Plan: Acute respiratory failure, with Hypoxia per admitting [facility] notes with addendum: Copd exacerbation 2/2 pneumonia in active smoker with underlying health problems and alcoholism. Cont with Solumedrol 40mg IV q6h, scheduled Duonebs, and antibiotics. Will use oxygen, titrating to a goal of 88% saturation. Would remove the oxygen if she is consistently oxygenating >94%. Smoking cessation advised. She reports already receiving her annual flu shot and reports having a Pneumovax in the past, also. 10/18 Continues to improve clinically, off oxygen supplement Still has some wheezing bilaterally Continue DuoNeb 4 times daily, Solu-Medrol 40 milligrams IV daily, management of pneumonia per below (2) Pneumonia: Plan: Sputum culture: Moraxella, sensitivities pending Blood cultures: Pending Continue ceftriaxone plus azithromycin (3) Anxiety: Plan: Alcohol use Last drink 3 days ago Drinks 5 to 6 cans of beer per day No overt signs and symptoms of alcohol withdrawal Continue gabapentin protocol with as needed Ativan Monitor closely Left ankle pain Reports multiple surgeries on the left ankle Possible reactive arthritis: Check left ankle x-ray Lidoderm patch (4) Tobacco use disorder: Plan: Nicoderm ordered. Smoking cessation advised. (5) Depression: Plan: chronic, stable. Cont home antidepressant. (6) Hyperlipidemia: Plan: chronic, stable. Patient reports non compliance with atorvastatin because she forgets to take it. Cont atorvastatin daily. (7) DVT prophylaxis: Plan: heparin Full code as per my armen discussion with her on admission. Dispo-anticipate discharge to home medically stable plan of care discussed with patient in detail and at length all questions answered she is understanding, agreeable, comfortable with the plan of care Admission and Anticipated Discharge Date Admission Date: October 16, 2022 Subjective Follow-up for COPD exacerbation, pneumonia, etc. Seen sitting up in bed, comfortable, watching TV, not in distress States she continues to feel improved overall Still having productive cough, but no shortness of breath No chest pain No fevers or chills, abdominal pain, nausea vomiting Still reports left ankle pain No other symptom Review of Systems Review of Systems: all noted and negative except for above Physical Exam Physical Exam: General- oriented x 3, not in distress, speaks in sentences with no effort or accessory muscle use Eyes- anicteric Neck- no JVD Lungs-positive mild wheeze, bilaterally, no crackles Heart- normal rate, regular rhythm; no murmurs Abdomen- normal bowel sounds, nondistended, soft, nontender Extremities- no pretibial edema, no calf tenderness Positive left ankle bony protuberance, decreased range of motion secondary to pain, but no erythema/warmth/tenderness Neuro- alert, oriented x 3; no gross focal neurologic deficits Skin- warm & dry Results & Data Results & Data ([facility]) Vital Signs (Past 12 Hours) Vital Signs Temp Pulse Resp BP Pulse Ox O2 Del Method O2 Flow Rate 10/18/22 14:52 87 18 96 Room Air 10/18/22 12:21 36.8 C 93 H 18 128/79 93 Room Air 10/18/22 11:09 Room Air 10/18/22 10:37 68 18 98 Room Air 10/18/22 08:15 122/80 10/18/22 06:59 79 17 97 Room Air 10/18/22 06:40 36.6 C 87 20 190/104 H 96 Nasal Cannula 2 10/18/22 04:15 36.5 C 82 23 178/96 H 95 Nasal Cannula 3 all noted and reviewed including below
--- NOTE | 2022-10-18 18:10 | XRay Report ---
XR ankle LT 2V CLINICAL HISTORY: Ankle pain, rule out fracture COMPARISON: Left foot radiographs July 12, 2020. FINDINGS: Two medial malleolar screws are in place. Ankle soft tissue swelling is present. There is an old, healed fracture of the distal left fibula. Note is made of mixed lucency and sclerosis of the distal left tibia, new since prior radiographs. A lucency of the anterior distal left tibia on later al projection was also not not evident on radiographs July 12, 2020. This may reflect a subacute fr acture. Subchondral collapse within the tibial plafond is noted. Talar dome is intact. IMPRESSION: 1. Status post medial malleolar internal fixation. Old, healed distal left fibular fracture. 2. A lucency of the distal anterior left tibia. This favors a subacute to chronic fracture. 3. Lucency and sclerosis of the distal left tibia with apparent subchondral collapse of the tibial pl afond, new since prior foot radiographs. The findings favor a posttraumatic etiology with healing dis placed fracture. Although less likely, an infectious process could have a similar imaging appearance. Findings could be correlated with clinical evidence for an infectious process. ACT 112: Negative or not required by law. Electronically signed by: Michael Velázquez M.D. 10/18/2022 6:07 PM
[2022-10-18] MEDS: ACETAMINOPHEN 325 MG TAB PO PRN (20:41)
[2022-10-19] MEDS: LORazepam 0.5 MG TAB PO PRN ×4 (01:17→20:10)
[2022-10-19] MEDS: hydrOXYzine HCl 25 MG TAB PO PRN ×2 (04:16→20:10)
[2022-10-19] MEDS: ACETAMINOPHEN 325 MG TAB PO PRN ×2 (05:49→20:10)
[2022-10-19] MEDS: ALBUT/IPRATROP 3MG/0.5MG NEB 3 ML VIAL NEB SCH ×4 (06:53→19:53)
[2022-10-19] MEDS: FOLIC ACID 1 MG TAB PO SCH (08:53)
[2022-10-19] MEDS: ATORVASTATIN 20 MG TAB PO SCH (08:53)
[2022-10-19] MEDS: methylPREDNISolone 40 MG in SYRINGE 0 ML IV SCH (08:53)
[2022-10-19] MEDS: buPROPion SR 100 MG TABCR PO SCH (08:53)
[2022-10-19] MEDS: NYSTATIN SUSP 500,000 U/5 ML UDC PO SCH ×4 (08:53→20:10)
[2022-10-19] MEDS: HEPARIN SOD 5,000 UNIT/0.5 ML VIAL SQ SCH ×2 (08:53→20:11)
[2022-10-19] MEDS: FLUoxetine HCL 20 MG CAP PO SCH (08:53)
[2022-10-19] MEDS: THIAMINE HCL 100 MG TAB PO SCH (08:53)
[2022-10-19] MEDS: cefTRIAXone SODIUM 1,000 MG in DEXTROSE 5% 50 ML IV SCH (08:54)
[2022-10-19] MEDS: FLUTICASONE/VILANTEROL 100/25MCG 14 PUFFS/INHALER INH SCH (08:54)
[2022-10-19] MEDS: NICOTINE 21 MG/24 HR TDSY TD SCH (08:55)
[2022-10-19] MEDS: GABAPENTIN 600 MG TAB PO SCH ×2 (09:45→20:11)
[2022-10-19] MEDS: AZITHROMYCIN 500 MG in DEXTROSE 5% 250 ML IV SCH (13:46)
--- NOTE | 2022-10-19 14:01 | Hospitalist Progress Note ---
Date of Service October 19, 2022 Assessment & Plan (1) COPD exacerbation: Plan: Acute respiratory failure, with Hypoxia per admitting [facility] notes with addendum: Copd exacerbation 2/2 pneumonia in active smoker with underlying health problems and alcoholism. Cont with Solumedrol 40mg IV q6h, scheduled Duonebs, and antibiotics. Will use oxygen, titrating to a goal of 88% saturation. Would remove the oxygen if she is consistently oxygenating >94%. Smoking cessation advised. She reports already receiving her annual flu shot and reports having a Pneumovax in the past, also. 10/19 Continues to improve clinically, off oxygen supplement wheezing mostly resolved Continue DuoNeb 4 times daily, Solu-Medrol 40 milligrams IV daily--> prednisone 40mg daily, taper; management of pneumonia per below (2) Pneumonia: Plan: Sputum culture: Moraxella, no sensitivities Blood cultures: negative so far Continue ceftriaxone plus azithromycin (3) Anxiety: Plan: Alcohol use Last drink 3 days ago Drinks 5 to 6 cans of beer per day No overt signs and symptoms of alcohol withdrawal Continue gabapentin protocol with as needed Ativan Monitor closely Left ankle pain Reports multiple surgeries on the left ankle Possible reactive arthritis Check left ankle x-ray: 1. Status post medial malleolar internal fixation. Old, healed distal left fibular fracture. 2. A lucency of the distal anterior left tibia. This favors a subacute to chronic fracture. 3. Lucency and sclerosis of the distal left tibia with apparent subchondral collapse of the tibial plafond, new since prior foot radiographs. The findings favor a posttraumatic etiology with healing displaced fracture. Although less likely, an infectious process could have a similar imaging appearance. Findings could be correlated with clinical evidence for an infectious process. Ortho consulted Lidoderm patch (4) Tobacco use disorder: Plan: Nicoderm ordered. Smoking cessation advised. (5) Depression: Plan: chronic, stable. Cont home antidepressant. (6) Hyperlipidemia: Plan: chronic, stable. Patient reports non compliance with atorvastatin because she forgets to take it. Cont atorvastatin daily. (7) DVT prophylaxis: Plan: heparin Full code as per my armen discussion with her on admission. Dispo-anticipate discharge to home medically stable plan of care discussed with patient in detail and at length all questions answered she is understanding, agreeable, comfortable with the plan of care Admission and Anticipated Discharge Date Admission Date: October 16, 2022 Subjective ff up for COPD exacerbation, pneumonia, etc seen resting in bed, comfortable states she continues to feel improved daily breathing is improving less cough no chest pain still has L ankle pain, worse with walking difficult to ambulate as per patient no other symptoms Review of Systems Review of Systems: all noted and negative except for above Physical Exam Physical Exam: General- oriented x 3, not in distress, speaks in sentences with no effort or accessory muscle use Eyes- anicteric Neck- no JVD Lungs- diminished but clear BS bilaterally, occasional rhonchi Heart- normal rate, regular rhythm; no murmurs Abdomen- normal bowel sounds, nondistended, soft, nontender Extremities- no pretibial edema, no calf tenderness L ankle: (+) bony protruberance- mild warmth Neuro- alert, oriented x 3; no gross focal neurologic deficits Skin- warm & dry Results & Data Results & Data ([facility]) Vital Signs (Past 12 Hours) Vital Signs Temp Pulse Pulse Resp BP Pulse Ox O2 Del Method 10/19/22 12:31 37.0 C 79 20 155/68 H 96 Room Air 10/19/22 11:00 72 18 96 Room Air 10/19/22 08:00 Room Air 10/19/22 08:00 36.5 C 79 20 155/68 H 97 Room Air 10/19/22 06:53 78 18 95 Room Air 10/19/22 05:25 36.4 C L 88 16 165/73 H 92 Room Air 10/19/22 02:05 79 all noted and reviewed including below
[2022-10-20] MEDS: LORazepam 0.5 MG TAB PO PRN ×3 (01:10→14:07)
[2022-10-20] MEDS: ACETAMINOPHEN 325 MG TAB PO PRN (04:37)
[2022-10-20] MEDS: hydrOXYzine HCl 25 MG TAB PO PRN (04:38)
[2022-10-20] MEDS: ALBUT/IPRATROP 3MG/0.5MG NEB 3 ML VIAL NEB SCH ×2 (07:06→09:55)
[2022-10-20] MEDS: FOLIC ACID 1 MG TAB PO SCH (08:50)
[2022-10-20] MEDS: buPROPion SR 100 MG TABCR PO SCH (08:50)
[2022-10-20] MEDS: NYSTATIN SUSP 500,000 U/5 ML UDC PO SCH ×2 (08:50→12:45)
[2022-10-20] MEDS: THIAMINE HCL 100 MG TAB PO SCH (08:50)
[2022-10-20] MEDS: HEPARIN SOD 5,000 UNIT/0.5 ML VIAL SQ SCH (08:50)
[2022-10-20] MEDS: ATORVASTATIN 20 MG TAB PO SCH (08:50)
[2022-10-20] MEDS: FLUoxetine HCL 20 MG CAP PO SCH (08:50)
[2022-10-20] MEDS: NICOTINE 21 MG/24 HR TDSY TD SCH (08:50)
[2022-10-20] MEDS: cefTRIAXone SODIUM 1,000 MG in DEXTROSE 5% 50 ML IV SCH (08:51)
[2022-10-20] MEDS: FLUTICASONE/VILANTEROL 100/25MCG 14 PUFFS/INHALER INH SCH (08:51)
[2022-10-20] MEDS ORDERED: predniSONE 20 MG TAB PO SCH (09:00)
--- NOTE | 2022-10-20 09:39 | Orthopedic Consultation ---
Date of Consultation October 20, 2022 Assessment & Plan (1) Arthritis of left ankle: 67 year old female with left ankle acute on chronic severe arthritis -Recommend ice for swelling/ pain -Pain control with NSAIDs or steroids for acute arthritic flare if medically able, alternating with Tylenol, lidocaine patches -Pt can continue use of cam boot as needed for comfort and stability, WBAT -PT/OT to assist with gait training and ROM ankle to help avoid stiffness -Pt seen and evaluated with Dr Castro who is in agreement with this plan. Would like patient to follow up with foot/ankle specialist in [facility] if patient prefers somewhere closer. -Will sign off for now, please TigerText with any questions or concerns Supervising Physician Co-Signing Physician Notes I, Dr. Castro, saw and examined the patient and discussed the management with my PA. I reviewed my PAs note and agree with the documented findings and the plan of care I developed. History of Present Illness Reason for Consultation: Left ankle pain Attending Physician: Adam Phipps MD History of Present Illness Pt seen and examined bedside. She was admitted last week for COPD exacerbation and pneumonia. Since her stay she has c/o left ankle pain. She has had left ankle pain chronically for years now. She reports multiple surgeries on her ankle. She denies any new injury or trauma. She has been wearing a cam boot because walking in regular shoes bothers her. She denies swelling, redness or warmth. She denies any numbness or tingling. Allergies Allergy/AdvReac Type Severity Reaction Status Date / Time No Known Allergies Allergy Unverified 05/05/21 01:40 Home Medications Medication Instructions Recorded Confirmed Type fluoxetine 40 mg capsule (Prozac) 60 mg PO DAILY 06/12/20 10/16/22 History albuterol sulfate 90 mcg/actuation 2 puff inhalation Q4 PRN Shortness 07/12/20 10/16/22 History aerosol inhaler Of Breath Or Wheezing hydroxyzine HCl 25 mg tablet 25 mg PO Q6 PRN anxiety 07/13/20 10/16/22 History bupropion HCl 100 mg tablet,12 hr 100 mg PO QAM 05/05/21 10/16/22 History sustained-release gabapentin 400 mg capsule 400 mg PO TID 05/05/21 10/16/22 History atorvastatin 20 mg tablet 20 mg PO DAILY 10/16/22 10/16/22 History fluticasone 250 mcg-salmeterol 50 1 ea inhalation BID 10/16/22 10/16/22 History mcg/dose blistr powdr for inhalation Patient History Medical History Anxiety Anxiety COPD (chronic obstructive pulmonary disease) Depression Hyperlipidemia Personal history of alcoholism Tobacco use disorder Surgical History No pertinent past surgical history Family History Mother CHF (congestive heart failure) Father Prostate cancer Aunt Breast cancer Social History Smoking Status: Current every day smoker Tobacco Type: Cigarettes Hx Alcohol Use: Yes Alcohol type: beer Alcohol Intake Frequency: 4 or More x per/Week Alcohol Intake Frequency Comment: 4 beers/day Hx Substance Use: Yes Non-Prescribed Medications: Marijuana Preferred Language: Albanian Communication Ability: Effective 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 There is no erythema, warmth or breaks in the skin. Patient is able to DF/PF and wiggle all 5 digits. NVI with sensation to light touch and 2+ DP pulse present. Results & Data ([facility]) Vital Signs (Past 12 Hours) Vital Signs Temp Pulse Pulse Pulse Resp BP Pulse Ox 10/20/22 07:07 85 18 97 10/20/22 06:46 37.1 C 79 18 142/83 H 91 10/20/22 04:23 37.0 C 93 H 23 176/83 H 90 10/19/22 23:42 77 10/19/22 23:23 10/19/22 23:07 37 C 84 22 144/80 H 94 O2 Del Method 10/20/22 07:07 Room Air 10/20/22 06:46 Room Air 11/21/22 04:23 Room Air 10/19/22 23:42 10/19/22 23:23 Room Air 10/19/22 23:07 Room Air Diagnostic Findings XR ankle LT 2V 10/18/22 IMPRESSION: 1. Status post medial malleolar internal fixation. Old, healed distal left fibular fracture. 2. A lucency of the distal anterior left tibia. This favors a subacute to chronic fracture. 3. Lucency and sclerosis of the distal left tibia with apparent subchondral collapse of the tibial plafond, new since prior foot radiographs. The findings favor a posttraumatic etiology with healing displaced fracture. Although less likely, an infectious process could have a similar imaging appearance. Findings could be correlated with clinical evidence for an infectious process.
[2022-10-20] MEDS: AZITHROMYCIN 500 MG in DEXTROSE 5% 250 ML IV SCH (12:45)
--- NOTE | 2022-10-20 13:48 | Hospitalist Progress Note ---
Date of Service October 20, 2022 Assessment & Plan (1) COPD exacerbation: Plan: Acute respiratory failure, with Hypoxia Copd exacerbation 2/2 pneumonia in active smoker with underlying health problems and alcoholism. Patient given Solu-Medrol IV, then transition to prednisone Also given duo nebs 4 times daily Wheezing resolved Weaned off oxygen Continue usual inhalers at home (2) Pneumonia: Plan: CT chest: 1. No evidence of pulmonary embolism. 2. Bronchial wall thickening is noted with scattered groundglass opacities, compatible with bronchitis and pneumonia. Follow-up to resolution is recommended. Sputum culture: Moraxella, no sensitivities Blood cultures: negative Patient given 5-day course of ceftriaxone plus azithromycin Discharged on: Cefdinir 300 mg twice daily x5 days Doxycycline 100 mg twice daily x3 days (3) Anxiety: Plan: Alcohol use Drinks 5 to 6 cans of beer per day Placed on alcohol withdrawal protocol No overt signs and symptoms of alcohol withdrawal LEFT ANKLE PAIN Reports multiple surgeries on the left ankle Possible reactive arthritis Check left ankle x-ray: 1. Status post medial malleolar internal fixation. Old, healed distal left fibular fracture. 2. A lucency of the distal anterior left tibia. This favors a subacute to chronic fracture. 3. Lucency and sclerosis of the distal left tibia with apparent subchondral collapse of the tibial plafond, new since prior foot radiographs. The findings favor a posttraumatic etiology with healing displaced fracture. Although less likely, an infectious process could have a similar imaging appearance. Findings could be correlated with clinical evidence for an infectious process. Ortho consulted: Does not recommend surgical intervention at this point, continue using boot, cane, weightbearing as tolerated, follow-up with Ortho in 2 weeks Lidoderm patch (4) Tobacco use disorder: Plan: Nicoderm ordered. Smoking cessation advised. (5) Depression: Plan: chronic, stable. Cont home antidepressant. (6) Hyperlipidemia: Plan: chronic, stable. Patient reports non compliance with atorvastatin because she forgets to take it. Cont atorvastatin daily. (7) DVT prophylaxis: Plan: heparin given Disposition Discharge to home Follow-up with PCP in 1 week plan of care discussed with patient in detail and at length all questions answered she is understanding, agreeable, comfortable with the plan of care Admission and Anticipated Discharge Date Admission Date: October 16, 2022 Subjective Follow-up for COPD exacerbation, pneumonia, etc. Seen sitting up in bed, comfortable, watching TV, not in distress With peers States she feels much better overall Breathing is good, no cough No fevers or chills Left ankle pain about the same Back ambulating fine No other symptoms States she is ready and would like to be discharged today if possible Review of Systems Review of Systems: all noted and negative except for above Physical Exam Physical Exam: General- oriented x 3, not in distress, speaks in sentences with no effort or accessory muscle use Eyes- anicteric Neck- no JVD Lungs- clear breath sounds bilaterally, no crackles or wheezes Heart- normal rate, regular rhythm; no murmurs Abdomen- normal bowel sounds, nondistended, soft, no tenderness Extremities- no pretibial edema, no calf tenderness Neuro- alert, oriented x 3; no gross focal neurologic deficits Skin- warm & dry Results & Data Results & Data ([facility]) Vital Signs (Past 12 Hours) Vital Signs Temp Pulse Pulse Pulse Pulse Pulse Resp 10/20/22 12:06 36.4 C L 85 93 H 19 10/20/22 11:08 36.4 C L 93 H 19 10/20/22 09:55 92 H 18 10/20/22 09:54 92 H 94 H 82 10/20/22 08:00 10/20/22 07:07 85 18 10/20/22 06:46 37.1 C 79 18 10/20/22 04:23 37.0 C 93 H 23 Resp Resp Resp BP Pulse Ox Pulse Ox Pulse Ox 10/20/22 12:06 150/78 H 93 10/20/22 11:08 150/78 H 93 10/20/22 09:55 92 10/20/22 09:54 18 18 18 90 92 10/20/22 08:00 10/20/22 07:07 97 10/20/22 06:46 142/83 H 91 10/20/22 04:23 176/83 H 90 Pulse Ox O2 Del Method 10/20/22 12:06 10/20/22 11:08 Room Air 10/20/22 09:55 Room Air 10/20/22 09:54 93 10/20/22 08:00 Room Air 10/20/22 07:07 Room Air 10/20/22 06:46 Room Air 10/20/22 04:23 Room Air all noted and reviewed including below
--- NOTE | 2022-10-20 13:53 | Discharge Summary ---
Discharge Summary Date of Service October 20, 2022 Notes For Next Care Provider Medication Changes From Visit New medications: Cefdinir 300 mg p.o. twice daily x5 days Doxycycline 100 mg p.o. twice daily x3 days Admission HPI Per Admitting Provider 67 yo F reports SOB x 5 days that is progressive. She has a h/o COPD and has already been treated wtih a nebulized bronchodilator and solumedrol 125mg IV. She is not typically on oxygen and requiring 2LPM via nasal canula today. This morning she used her albuterol and Advair at home and had no relief. She went to [facility] and there she was oxygenating 97% on room air but was so short of breath she was unable to speak in full sentences. EMS was called to bring her to the ER. Symptoms started on Sat, denies fevers, chills, no sick contacts. Can't sleep because she has trouble laying flat as it makes her cough. Explosive stools that are in the am, no diarrhea. Poor appetite recently. Alcohol intake is r eported as 5-6 beers/day. She smokes marijuana daily. Active smoker [facility]. Reports that her anxiety has not been controlled recently. Walks with a cane. Lives alone. Admission Exam Per Admitting Provider CONSTITUTIONAL: thin, frail, vitals as above, generally is ill appearing but in no acute distress. EYES: pupils are round and equal bilaterally, normal conjunctivae, no scleral icterus, ENT: external ear and nose normal, thrush on tongue, MMM NECK: trachea midline, RESPIRATORY: wheezing throughout all lung ferguson, mild respiratory distress CARDIOVASCULAR: tachy rate and regular rhythm, S1 and 2 heard without murmurs, gallops or rubs, no JVD, no peripheral edema CHEST: inspection of chest was normal GASTROINTESTINAL: soft, nontender, ND, no guarding MUSCULOSKELETAL: strength 5/5 throughout, able to sit up independently, head is normocephalic and atraumatic SKIN: warm and dry NEUROLOGIC: CN 2-12 grossly intact, no sensory deficit, normal cognition, normal speech PSYCHIATRIC: alert cooperative and oriented to person, place and time. Euthymic mood, makes good eye contact, language grossly intact, recent and remote memory grossly intact. Principal Dx & Hospital Course #1 = Principal Diagnosis (1) COPD exacerbation: Acute respiratory failure, with Hypoxia Copd exacerbation 2/2 pneumonia in active smoker with underlying health problems and alcoholism. Patient given Solu-Medrol IV, then transition to prednisone Also given duo nebs 4 times daily Wheezing resolved Weaned off oxygen Continue usual inhalers at home (2) Pneumonia: CT chest: 1. No evidence of pulmonary embolism. 2. Bronchial wall thickening is noted with scattered groundglass opacities, compatible with bronchitis and pneumonia. Follow-up to resolution is recommended. Sputum culture: Moraxella, no sensitivities Blood cultures: negative Patient given 5-day course of ceftriaxone plus azithromycin Discharged on: Cefdinir 300 mg twice daily x5 days Doxycycline 100 mg twice daily x3 days (3) Anxiety: Alcohol use Drinks 5 to 6 cans of beer per day Placed on alcohol withdrawal protocol No overt signs and symptoms of alcohol withdrawal LEFT ANKLE PAIN Reports multiple surgeries on the left ankle Possible reactive arthritis Check left ankle x-ray: 1. Status post medial malleolar internal fixation. Old, healed distal left fibular fracture. 2. A lucency of the distal anterior left tibia. This favors a subacute to chronic fracture. 3. Lucency and sclerosis of the distal left tibia with apparent subchondral collapse of the tibial plafond, new since prior foot radiographs. The findings favor a posttraumatic etiology with healing displaced fracture. Although less likely, an infectious process could have a similar imaging appearance. Findings could be correlated with clinical evidence for an infectious process. Ortho consulted: Does not recommend surgical intervention at this point, continue using boot, cane, weightbearing as tolerated, follow-up with Ortho in 2 weeks Lidoderm patch (4) Tobacco use disorder: Nicoderm ordered. Smoking cessation advised. (5) Depression: chronic, stable. Cont home antidepressant. (6) Hyperlipidemia: chronic, stable. Patient reports non compliance with atorvastatin because she forgets to take it. Cont atorvastatin daily. (7) DVT prophylaxis: heparin given Disposition Discharge to home Follow-up with PCP in 1 week plan of care discussed with patient in detail and at length all questions answered she is understanding, agreeable, comfortable with the plan of care Discharge Exam General- oriented x 3, not in distress, speaks in sentences with no effort or accessory muscle use Eyes- anicteric Neck- no JVD Lungs- clear breath sounds bilaterally, no crackles or wheezes Heart- normal rate, regular rhythm; no murmurs Abdomen- normal bowel sounds, nondistended, soft, no tenderness Extremities- no pretibial edema, no calf tenderness Neuro- alert, oriented x 3; no gross focal neurologic deficits Skin- warm & dry Updated Medication List Medication Instructions Recorded Confirmed Type fluoxetine 40 mg capsule (Prozac) 60 mg PO DAILY 06/12/20 10/16/22 History albuterol sulfate 90 mcg/actuation 2 puff inhalation Q4 PRN Shortness 07/12/20 10/16/22 History aerosol inhaler Of Breath Or Wheezing hydroxyzine HCl 25 mg tablet 25 mg PO Q6 PRN anxiety 07/13/20 10/16/22 History bupropion HCl 100 mg tablet,12 hr 100 mg PO QAM 05/05/21 10/16/22 History sustained-release gabapentin 400 mg capsule 400 mg PO TID 05/05/21 10/16/22 History atorvastatin 20 mg tablet 20 mg PO DAILY 10/16/22 10/16/22 History fluticasone 250 mcg-salmeterol 50 1 ea inhalation BID 10/16/22 10/16/22 History mcg/dose blistr powdr for inhalation cefdinir 300 mg capsule 300 mg PO BID 5 days #10 caps 10/20/22 Rx doxycycline hyclate 100 mg capsule 100 mg PO BID 3 days #6 caps 10/20/22 Rx nicotine 21 mg/24 hr daily 21 mg transdermal QAM 7 days #7 ea 10/20/22 Rx transdermal patch (Nicoderm CQ) nystatin 100,000 unit/mL oral 5 ml PO QID 5 days #100 mL 10/20/22 Rx suspension Hospital Stay Data Consultations 10/16/22 11:25 ED Decision to Admit Stat 10/19/22 11:32 Consult Orthopedic Surgery Routine Diagnostic Imagining Performed Chest X-Ray 10/16/22 10:33 XR chest 1V portable HISTORY: Dyspnea COMPARISON: None. FINDINGS: No pneumothorax. No pleural effusions. The lungs are hyperexpanded with apical predominant emphysematous changes. Mild diffuse interstitial thickening. This is likely chronic. Otherwise, no focal lung consolidations to suggest a pneumonia. No evidence for pulmonary edema. There is an old, healed left clavicle fracture. IMPRESSION: Emphysema and mild interstitial thickening. This is likely chronic. ACT 112: Negative or not required by law. Electronically signed by: Giancarlo Faulkner M.D. 10/16/2022 10:57 AM Chest CTA 10/16/22 10:55 CT angio chest PE protocol CLINICAL HISTORY: PE TECHNIQUE: Multidetector row helical CT of the chest was performed with angiographic protocol. Coronal and sagittal reformations were obtained. Coronal and sagittal MIPS were obtained from the axial data set and were submitted for review. Automated dose lowering techniques and/or adjustment according to patient size were utilized for this exam. CT DOSE: 259.87 mGy.cm Comparison: Comparison is made to chest radiograph 10/16/2022 FINDINGS: Exam is limited by patient motion. Lungs and pleura: Bronchial wall thickening is seen throughout. Scattered groundglass opacities are seen most prominently in the bilateral upper lobe and left lower lobe. Heart and pericardium: Cardiomegaly is seen with biatrial enlargement. Vessels: No evidence of pulmonary embolism. Incidental note is made of dominant left vertebral artery with miniscule right vertebral artery. Mediastinum and kalyn: Subcentimeter lymph nodes are seen. Chest wall and lower neck: Unremarkable. Abdomen: Unremarkable. Bones: Degenerative changes of the thoracic spine. Old healed rib fractures are seen. Compression deformity of T9 is noted. IMPRESSION: 1. No evidence of pulmonary embolism. 2. Bronchial wall thickening is noted with scattered groundglass opacities, compatible with bronchitis and pneumonia. Follow-up to resolution is recomm ended. ACT 112: Negative or not required by law. Electronically signed by: Cole Scott M.D. 10/16/2022 12:02 PM Ankle X-Ray 10/18/22 15:37 XR ankle LT 2V CLINICAL HISTORY: Ankle pain, rule out fracture COMPARISON: Left foot radiographs July 12, 2020. FINDINGS: Two medial malleolar screws are in place. Ankle soft tissue swelling is present. There is an old, healed fracture of the distal left fibula. Note is made of mixed lucency and sclerosis of the distal left tibia, new since prior radiographs. A lucency of the anterior distal left tibia on lateral projection was also not not evident on radiographs July 12, 2020. This may reflect a subacute fracture. Subchondral collapse within the tibial plafond is noted. Talar dome is intact. IMPRESSION: 1. Status post medial malleolar internal fixation. Old, healed distal left fibular fracture. 2. A lucency of the distal anterior left tibia. This favors a subacute to chronic fracture. 3. Lucency and sclerosis of the distal left tibia with apparent subchondral collapse of the tibial plafond, new since prior foot radiographs. The findings favor a posttraumatic etiology with healing displaced fracture. Although less likely, an infectious process could have a similar imaging appearance. Findings could be correlated with clinical evidence for an infectious process. ACT 112: Negative or not required by law. Electronically signed by: Michael Velázquez M.D. 10/18/2022 6:07 PM Pending Results Patient Have Any Pending Studies at Discharge: No Discharge Instructions Given to Patient (Per Discharging Provider) PLEASE REFER TO YOUR NEW MEDICATION LIST AND FOLLOW INSTRUCTIONS CAREFULLY. YOUR NEW MEDICATIONS INCLUDE: Cefdinir, doxycycline-antibiotics for pneumonia Nicotine patch Nystatin suspension-for oral thrush No smoking, alcohol. Take probiotics daily for at least 2 weeks. Continue using your boot for your left foot. Follow-up with your orthopedic doctor in 2 weeks. Always ambulate with your cane. Always be careful ambulating to prevent falls. PLEASE CALL YOUR PRIMARY CARE PHYSICIAN OR RETURN TO THE ER IF WITH WORSENING OF SYMPTOMS, INCLUDING Shortness of breath, cough, fevers or chills, weakness, Worsening left ankle/foot pain, swelling, redness, etc. FOLLOW UP WITH PRIMARY CARE PHYSICIAN OUTLINED ABOVE. Total Time Total Time Spent Total Time Spent (In Minutes): >30 minutes
[2022-10-20] MEDS ORDERED: GABAPENTIN 600 MG TAB PO SCH (22:00)
== END 2022-10-20 17:07 | disposition home or self-care (01) | DRG 193 ==
LOC: ED 10:04 → SUATTDRO 11:34 → 4W 11:34

== ENCOUNTER 2024-06-04 13:29 | Inpatient (IN) ==
--- OUTSIDE RECORDS SUMMARY | 2024-06-04 13:36 | External Medical Summary | Summary of Care ---
Author Name Unknown Organization [facility] Address [address] [place] [address] Phone [phone] Care Team Providers Care Electrical Equipment Assembler Name Role Phone Gray Diehl MD Primary Care Provider [phone] Reason for Referral * Social Care (Within 10 days (routine)) - Authorized Specialty Diagnoses / Procedures Referred By Irma french Referred To Contact Clinical Fellow Diagnoses Other schizophrenia (HCC) Gray Diehl MD [address] [place] [address] Referral ID Status Reason Start Date Expiration Date Visits Requested Visits Authorized [id number] Authorized Specialty Services Required 05/30/2024 [id number] Question Answer Referral Priority Within 10 days (routine) Where should this appointment be scheduled? [facility] Role Behavioral Health Clinical FellowBig Data Platform Architect Health Clinical Fellow Referral Reason Bipolar Comments Is patient being transitioned from [facility] to Complex Case Management? No * Evaluate & Treat - Unlimited Visits (Within 30 days (routine)) - Authorized Specialty Diagnoses / Procedures Referred By Irma french Referred To Contact Psychiatry Diagnoses Other schizophrenia (HCC) Gray Diehl MD [address] [place] [address] Referral ID Status Reason Start Date Expiration Date Visits Requested Visits Authorized [id number] Authorized Specialty Services Required 05/30/[phone] Question Answer Referral Priority Within 30 days (routine) Where should this appointment be scheduled? [facility] Is this referral for medication management? Yes Reason for Referral Other (Comment) Comments Recent psychosis. Probable tardive dyskinesia Reason for Visit * Reason Comments Confusion Encounter Details Date Type Department Care Team (Latest Contact Info) Description 05/30/2024 2:00 PM EDT Telemedicine [facility] [address] [place] [address] Gray Diehl MD [address] [place] [address] Other schizophrenia (HCC)* Allergies No known active allergiesdocumented as of this encounter (statuses as of 05/30/2024) Medications Medication Sig Dispensed Refills Start Date End Date Status Fluticasone-Salmetero l 250-50 MCG/DOSE Inhalation Aerosol Powder Breath Activated (Advair Diskus)Indications:CO PD, severity to be determined (HCC) Inhale 1 Puff by mouth 2 times a day. 3 Each 3 11/14/2021 Active Albuterol Sulfate (2.5 MG/3ML) 0.083% Inhalation Nebulization Solution (Proventil)Indication s:COPD, severity to be determined (HCC) Inhale 1 Vial (2.5 mg) via nebulizer every 6 hours as needed for Wheezing. 120 mL 5 10/24/2022 Active HYDROcodone-Acetamino phen 5-325 MG Oral Tablet 02/20/2023 Active Fexofenadine HCl 180 MG Oral Tablet (Maria Luisa)Indications: Dermatitis, exfoliative Take 1 Tablet by mouth daily as needed for Allergies or Itching. 30 Tablet 5 01/15/2024 Active Albuterol Sulfate HFA 108 (90 Base) MCG/ACT Inhalation Aerosol SolutionIndications:C OPD, severity to be determined (HCC) INHALE 2 PUFFS BY MOUTH INTO THE LUNGS EVERY 4 HOURS NEEDED WHEEZING 54 g 04/07/2024 Active Atorvastatin Calcium 20 MG Oral Tablet (Lipitor)Indications: Other hyperlipidemia Take 1 Tablet by mouth every evening. 100 Tablet 2 04/07/2024 Active buPROPion HCl ER (SR) 100 MG Oral Tablet Extended Release 12 Hour (Wellbutrin SR)Indications:LYNDA (generalized anxiety disorder),Current mild episode of major depressive disorder, unspecified whether recurrent (HCC) Take 1 Tablet by mouth in the morning. 100 Tablet 2 04/07/2024 Active Diclofenac Sodium 1 % External Gel (Voltaren)Indications :Post-traumatic osteoarthritis of left ankle Apply 2 grams to left ankle every 6 hrs as needed 900 g 04/07/2024 Active FLUoxetine HCl 40 MG Oral Capsule (PROzac)Indications:G AD (generalized anxiety disorder),Current mild episode of major depressive disorder, unspecified whether recurrent (HCC) Take 1 Capsule by mouth in the morning. 100 Capsule 2 04/07/2024 Active FLUoxetine HCl 20 MG Oral Capsule (PROzac)Indications:G AD (generalized anxiety disorder),Current mild episode of major depressive disorder, unspecified whether recurrent (HCC) Take 1 Capsule by mouth in the morning. 100 Capsule 2 04/07/2024 Active Meclizine HCl 25 MG Oral Tablet (Antivert)Indications :Benign paroxysmal vertigo, unspecified laterality TAKE 1/2 to 1 TABLET BY MOUTH 3 TIMES A DAY NEEDED FOR DIZZINESS. 30 Tablet 04/07/2024 Active hydrOXYzine Pamoate 25 MG Oral Capsule (Vistaril)Indications :LYNDA (generalized anxiety disorder) TAKE ONE CAPSULE BY MOUTH EVERY 6 HOURS FOR ANXIETY 180 Capsule 3 04/06/2024 Active Pregabalin 50 MG Oral Capsule (Lyrica)Indications:C ervical spinal stenosis,Cervical radiculopathy at C5 Take 1 Capsule by mouth in the morning and 1 Capsule before bedtime. 180 Capsule 3 04/26/2024 Active Fluticasone-Salmetero l 250-50 MCG/ACT Inhalation Aerosol Powder Breath Activated (Advair Diskus)Indications:CO PD, severity to be determined (HCC) Inhale 1 Puff by mouth in the morning and 1 Puff before bedtime. 180 Each 3 04/26/2024 Active documented as of this encounter (statuses as of 05/30/2024) Active Problems Problem Noted Date Diagnosed Date Cervical spinal stenosis 04/26/2024 Cervical radiculopathy at C5 04/26/2024 Hyperlipidemia 06/30/2022 Hallux limitus of left foot 04/23/2021 History of tobacco use 01/10/2021 HTN, goal below 130/80 06/20/2020 LYNDA (generalized anxiety disorder) 06/20/2020 Personal history of alcoholism 06/20/2020 Current mild episode of major depressive disorde r 06/20/2020 Abnormal Papanicolaou smear of cervix with positive human papilloma virus (HPV) test 06/20/2020 COPD, severity to be determined 06/20/2020 documented as of this encounter (statuses as of 05/30/2024) Immunizations Name Administration Dates Next Due Pneumococcal Conjugate Vaccine, 20-valent (Prevn ar20) 04/26/2024 Pneumococcal Polysaccharide PPV23 (Pneumovax) ,08/05/2017 Seasonal Influenza, Quadrivalent Hd (Fluzone Hd) 09/30/2021 Seasonal Influenza, Quadrivalent, No Preserve, I M 08/15/2020,08/28/2017 TDAP (age 10 and older)(Boostrix) 07/24/2020 Zoster Vaccine Recombinant (Shingrix) 12/31/2021 documented as of this encounter Social History Tobacco Use Types Packs/Day Years Used Date Smoking Tobacco: Every Day Cigarettes 1 45 Smokeless Tobacco: Never Alcohol Use Standard Drinks/Week Comments Yes 4 (1 standard drink = 0.6 oz pur e alcohol) AUDIT-C Answer Date Recorded Q1: How often do you have a drink containing alc ohol? 2-3 times a week 08/24/2021 Average Number of Drinks Not on file 021 Frequency of Binge Drinking Not on file 08/01 PHQ-2 Answer Date Recorded PHQ-2 Score 0 09/13/2020 Hunger Vital Sign Answer Date Recorded Within the past 12 months, y ou worried that your food would run out before you got the money to buy more. Never true 01/10/20 21 Within the past 12 months, t he food you bought just didn't last and you didn't have money to get more. Never true 01/10/2021 Utilities Answer Date Recorded Do you have trouble paying y our heating, water, or electric bill? (Adult - for ages 18 years and over) Not on file 05/17/2024 Is your family able to pay t he heat, water, or electric bill? (Household - for ages 0-17 years) Not on file 05/17/2024 Does your family have access to good internet? (Household - for ages 0-17 years) Not on file 05/17/2024 Social Connections Answer Date Recorded How often do you feel lonely or isolated from those around you? (Adult - for ages 18 years and over) Not on file 05/17/2024 Sex and Gender Information Value Date Recorded Sex Assigned at Female 10/24/2020 1:58 PM EST Gender Identity Female 10/24/2020 1:58 PM EST Sexual Orientation Straight 10/24/2020 1: 58 PM EST Job Start Date Occupation Industry Not on file Not on file Not on file documented as of this encounter Progress Notes * Gray Diehl MD - 05/30/2024 2:00 PM EDT Patient location: HOME. I was in a hospital or clinic location. After connecting through televideo,patient was verified with two unique identifiers. Patient (or authorized legal medical center representative) was then informed that this was a Telemedicine visit and being conducted confidentially over secure lines. Methods to assure confidentiality were taken. Patient acknowledged consent and understanding of pr ivacy and security of the Telemedicine visit. The patient agreed to participate. Subjective: Amparo Mazariegos is a 68 year old female. No chief complaint on file. HPI: 68-year-old seen today for video visit. She recently was seen [place] emergency room after developing crazy thoughts/hallucinations. She feels in retrospect this was all due to her starting pregabalin per my prescription. She had recently seen pain management after an MRI of the cervical spine showed multi level degenerative changes as C3-C4 and C5-C6 and C6-C7 and were felt likely to be the cause of her chronic numbness and paresthesias of the hands. Pain management recommended change from gabapentin to pregabalin. She thought that it was the pregabalin that was causing her hallucinationsin conjunction with using topical diclofenac. She never had any problems with gabapentin. She seemed to do okay after stopping the pregabalin in his best I can tell that was whether she used topical diclofenac or not. She has started herself back on gabapentin is up to 400 mg 3 times a day. Again she has not had the same hallucinations. She would like to be seen by Psychiatry. She does not have an appointment. I believes she was seen by Psychiatry be sure she moved to [facility] proximally 5 or 6 years ago. It is hard to get this information from the patient.. Patient Active Problem List Diagnosis HTN, goal below 130/80 LYNDA (generalized anxiety disorder) Personal history of alcoholism ([facility]) Current mild episode of major depressive disorder (HCC) Abnormal Papanicolaou smear of cervix with positive human papilloma virus (HPV) test COPD, severity to be determined ([facility]) History of tobacco use Hallux limitus of left foot Hyperlipidemia Cervical spinal stenosis Cervical radiculopathy at C5 Current Outpatient Medications Medication Sig Dispense Refill Fluticasone-Salmeterol 250-50 MCG/DOSE Inhalation Aerosol Powder Breath Activated (Advair Diskus) Inhale 1 Puff by mouth 2 times a day. 3 Each 3 Albuterol Sulfate (2.5 MG/3ML) 0.083% Inhalation Nebulization Solution (Proventil) Inhale 1 Vial (2.5 mg) via nebulizer every 6 hours as needed for Wheezing. 120 mL 5 HYDROcodone-Acetaminophen 5-325 MG Oral Tablet (Patient not taking: Reported on 01/15/2024) Fexofenadine HCl 180 MG Oral Tablet (Maria Luisa) Take 1 Tablet by mouth daily as needed for Allergies or Itching. 30 Tablet 5 Albuterol Sulfate HFA 108 (90 Base) MCG/ACT Inhalation Aerosol Solution INHALE 2 PUFFS BY MOUTH INTO THE LUNGS EVERY 4 HOURS NEEDED WHEEZING 54 g 0 Atorvastatin Calcium 20 MG Oral Tablet (Lipitor) Take 1 Tablet by mouth every evening. 100 Tablet 2 buPROPion HCl ER (SR) 100 MG Oral Tablet Extended Release 12 Hour (Wellbutrin SR) Take 1 Tablet by mouth in the morning. 100 Tablet 2 Diclofenac Sodium 1 % External Gel (Voltaren) Apply 2 grams to left ankle every 6 hrs as needed 900g 0 FLUoxetine HCl 40 MG Oral Capsule (PROzac) Take 1 Capsule by mouth in the morning. 100 Capsule 2 FLUoxetine HCl 20 MG Oral Capsule (PROzac) Take 1 Capsule by mouth in the morning. 100 Capsule 2 Meclizine HCl 25 MG Oral Tablet (Antivert) TAKE 1/2 to 1 TABLET BY MOUTH 3 TIMES A DAY NEEDED FOR DIZZINESS. 30 Tablet 0 hydrOXYzine Pamoate 25 MG Oral Capsule (Vistaril) TAKE ONE CAPSULE BY MOUTH EVERY 6 HOURS FOR ANXIETY 180 Capsule 3 Pregabalin 50 MG Oral Capsule (Lyrica) Take 1 Capsule by mouth in the morning and 1 Capsule before bedtime. 180 Capsule 3 Fluticasone-Salmeterol 250-50 MCG/ACT Inhalation Aerosol Powder Breath Activated (Advair Diskus) Inhale 1 Puff by mouth in the morning and 1 Puff before bedtime. 180 Each 3 No current facility-administered medications for this visit. Review of patient's allergies indicates: No Known Allergies Objective: There were no vitals taken for this visit. Physical Exam: CONST: alert, pleasant, no acute distress NEURO she has some diffuse dyskinesia involving her head and arms and mouth. ASSESSMENT/PLAN: 1. Certainly possible that the pregabalin is the underlying cause for recent hallucinations. I doubt the topical diclofenac has anything to do with it. 2. Probable tardive dyskinesia-suspect she has been on major tranquilizers in the past before moving to [facility]. Refer to Psychiatry. Consult [facility] to help coordinate 3. Diffuse cervical spine severe degenerative changes. Follow-up with spine surgeon as recommended by pain management. Her appointment in his unfortunately not until August. In meantime she will continue gabapentin 400 mg 3 times a day 4. Severe anxiety-she continue with hydroxyzine 25 mg up to 4 times a day. Gray Diehl MD documented in this encounter Plan of Treatment Upcoming Encounters Date Type Department Care Team (Late st Contact Info) Description 09/15/2024 10:00 AM EDT Imaging Radiology [address] [facility] [address] 10/07/2024 8:00 AM EST Office Visit Orthopaedics Spine Surgery, [facility] [address] [facility] [place] [address] Everett Sykes MD [address] [place] [address] Scheduled Procedures Name Priority Associated Diagnoses Date/Ti me COLONOSCOPY FLEXIBLE PROXIMA L DIAGNOSTIC Recall Special screening for malignant neoplasms, colon Scheduled Referrals Name Type Priority Associated Diagnoses Orde r Schedule ADULT/PEDS PSYCHIATRY REFERRAL OP Referral Within 30 days (routine) Other schizophrenia (HCC) Ordered: 05/30/2024 POPULATION HEALTH REFERRAL OP Referral Within 10 days (routine) Other schizophrenia (HCC) Ordered: 05/30/2024 Health Maintenance Due Date Last Done Comments DISCUSS TOBACCO CESSATION (REFER TO SMARTSET #1558) 1955 DXA Scan 1956 Alpha-1 Antitrypsin 1974 Cologuard 2001 Fecal Occult Blood Test 2001 Sigmoidoscopy 2001 Depression Monitoring 09/13/2021 09/13/2020 Zoster Vaccines (2 of 2) 02/25/2022 12/31/2021 COVID-19 Vaccine (1 - season) 2023 Mammogram 12/11/2023 12/11/2022, 11/30, 09/03/2020 GFR 12/31/2023 12/31/2022, 06/30, 05/05/2021, Additional history exists *BASELINE EKG FOR HTN 04/29/2024 Influenza Vaccine (FLU shot) (#1) 2024 10/03/2022, 09/30/2021, 08/15/2020, Additional history exists O2 ASSESSMENT COMPLETED IN PAST YEAR FOR COPD 04/26/2025 04/26/2024 Albumin/Creatinine Ratio 12/31/2025 12/31/2022, 06/30 Lipid Panel 12/31/2027 12/31/2022, 06/30, 10/24/2020, Additional history exists DTaP,Tdap,and Td Vaccines (2 - Td or Tdap) 07/24/2030 07/24/2020 Colonoscopy 11/01/2030 11/01/2020, 11/01/2020 Colorectal Cancer Screening 11/01/2030 Pap Smear Discontinued 07/04/2020 Lung Cancer Screening Completed 07/08/2022, 021 Pneumococcal Vaccine: 65+ Years Completed 04/26/2024, 07/24/2020, 08/05/2017 GARDASIL-HPV IMMUNIZATION SERIES Aged Out No longer eligible based on patient's age to complete this topic Hepatitis B Aged Out No longer eligi ble based on patient's age to complete this topic MENINGOCOCCAL (MENACTRA/MENVEO) Aged Out No longer eligible based on patient's age to complete this topic documented as of this encounter Medical Devices Not on filedocumented as of this encounter Visit Diagnoses Diagnosis Other schizophrenia (HCC)- Primary documented in this encounter Care Teams Electrical Equipment Assembler Relationship Specialty Start Date End Date Gray Diehl MD [address] [place] [address] PCP - General Family Medicine 06/20/20 documented as of this encounter
--- OUTSIDE RECORDS SUMMARY | 2024-06-04 13:36 | External Medical Summary | Summary of Care ---
Author Name Unknown Organization [facility] Address [address] [place] [address] Phone [phone] Care Team Providers Care Diagrammer Name Role Phone Gray Diehl MD Primary Care Provider [phone] Reason for Visit * Reason Onset Date Comments Referral 05/30/2024 EPIC 178 Referra l Encounter Details Date Type Department Care Team (Late st Contact Info) Description 05/30/2024 Telephone [facility] SURGE[facility] [address] [place] [address] Deidra Canales BSW [address], [place] [id number] Referral (EPIC 178 Referral ) Allergies No known active allergiesdocumented as of [...] on file documented as of this encounter Miscellaneous Notes * Telephone Encounter - Deidra Canales BSW - 05/30/2024 3:41 PM EDT Referring Provider: [facility] Reason for referral: DX Schizophrenia, reviewed notes further, member recently seen in ER for "crazy thoughts and hallucinations" member feels this is related to the medications that the PCP had started her on, member also struggling with chronic pain management and on medications for same, Member feeling her medications are not right, and needing psychiatry, possible [facility] referral if needed as well. Outcome of referral: contacted member at: [phone], rings 2x no way to leave , was able to send a MyG with [facility] contact information 2nd attempt to be made 06/03/24 due to holiday. Member can be directed to [facility] Viridiana Shepard 8a to 5p at [phone] documented in this encounter Plan of Treatment Upcoming Encounters Date Type Department Care Team ([facility] st Contact Info) Description 09/15/2024 10:00 AM EDT Imaging Radiology [facility] [place] [address] [place] [address] 10/07/2024 8:00 AM EST Office Visit Orthopaedics Spine Surgery, [facility] [address] [place] [address] Everett Sykes MD [address] [place] [address] Scheduled Procedures Name Priority Associated Diagnoses Date/Ti me COLONOSCOPY FLEXIBLE PROXIMA L DIAGNOSTIC Recall Special screening for malignant neoplasms, colon Health Maintenance Due Date Last Done Comments DISCUSS TOBACCO CESSATION (REFER TO SMARTSET #2502) 1955 DXA Scan 1956 Alpha-1 Antitrypsin 1974 Cologuard 2001 Fecal Occult Blood Test 2001 Sigmoidoscopy 2001 Depression Monitoring 09/13/2021 09/13/2020 Zoster Vaccines (2 of 2) 02/25/2022 12/31/2021 COVID-19 Vaccine (1 - 24 season) 2023 Mammogram 12/11/2023 12/11/2022, 11/30, 09/03/2020 [...] Not on filedocumented as of this encounter Care Teams Diagrammer Relationship Specialty Start Date End Date Gray Diehl MD [address] [place] [facility] [place] [address] PCP - General Family Medicine 06/20/20 documented as of this encounter
--- OUTSIDE RECORDS SUMMARY | 2024-06-04 13:36 | External Medical Summary | Summary of Care ---
Author Name Unknown Organization [facility] Address [address] [place] [address] Phone [phone] Care Team Providers Care Range Manager Name Role Phone Gray Diehl MD Primary Care Provider [phone] Reason for Referral * Evaluate & Treat - Unlimited Visits (Within 30 days (routine)) - Authorized Specialty Diagnoses / Procedures Referred By Irma french Referred To Contact Neuro/Ortho Surgery - Spine. / Neurological Surgery Diagnoses Cervical spinal stenosis Cervical radiculopathy at C5 Gray Diehl MD [address] [place] [address] Referral ID Status Reason Start Date Expiration Date Visits Requested Visits Authorized [id number] Authorized Specialty Services Required 06/03/[phone] Question Answer Referral Priority Within 30 days (routine) Where should this appointment be scheduled? [facility] spine region: Neck - Cervical Do you have any recent complete loss of bladder or bowel function? No Comments Multilevel degenerative changes of C spine Reason for Visit * Reason Onset Date Comments Advice 06/03/2024 Referral Referral 06/03/2024 Spinal Surgeon Encounter Details Date Type Department Care Team (Late st Contact Info) Description 06/03/2024 Telephone [facility] [address] [place] [facility] [place] [address] Gray Diehl MD [address] [place] [facility] [place] [place] [address] Advice (Referral); Referral (Spinal Surgeon) Allergies No known active allergiesdocumented as of this encounter (statuses as of 06/03/2024) Medications Medication Sig Dispensed Refills Start Date [...] as of this encounter (statuses as of 06/03/2024) Active Problems Problem Noted Date Diagnosed Date [...] as of this encounter (statuses as of 06/03/2024) Immunizations Name Administration Dates Next Due Pneumococcal [...] encounter Miscellaneous Notes * Telephone Encounter - Melly Rios OSA - 06/03/2024 2:06 PM EDT LMOM as there was a sooner appt in [place]. It may be gone by the time she calls back. Please give message to patient below from Dr. Diehl. 06/03/2024 * Telephone Encounter - Gray Diehl MD - 06/03/2024 1:53 PM EDT She is scheduled with dr Looney 10/06/24. I can not get that apt sooner. [facility] I do not know what the time frame would be. * Telephone Encounter - Precious Dupont OSA - 06/03/2024 9:32 AM EDT Pt called back she wants a sooner appt for the ortho spine dr. She said she is so much seay she can't wait that long to see a dr. Please call her back deep. * Telephone Encounter - Jennifer Browne CPhT - 06/03/2024 9:22 AM EDT Pt calling to speak with FP, transferred to FP office. Thank you, Jennifer Browne CPhT Gas Distribution Supervisor II [facility] 06/03/2024,9:23 AM * Telephone Encounter - Andrew Foster MED ASSIST - 06/03/2024 9:19 AM EDT Please advise * Telephone Encounter - Riddhi Leon OSA - 06/03/2024 8:22 AM EDT Patient called to inform Dr. Diehl that she needs a referral to see a spinal surgeon as soon as possible. The pain in her back is getting worse and her hands are starting to cramp up and cause pain as well. Please contact patient mobile number when referral has been placed. documented in this encounter Plan of Treatment Upcoming Encounters Date Type Department Care Team (Late st Contact Info) Description 09/15/2024 10:00 AM EDT Imaging Radiology [facility] [address] [place] [address] 10/07/2024 8:00 AM EST Office Visit Orthopaedics Spine Surgery, [facility] [place] [address] Everett Sykes MD [address] [place] [address] Scheduled Procedures Name Priority Associated Diagnoses Date/Ti me COLONOSCOPY FLEXIBLE PROXIMA L DIAGNOSTIC Recall Special screening for malignant neoplasms, colon Scheduled Referrals Name Type Priority Associated Diagnoses Orde r Schedule SPINE SURGERY REFERRAL OP Referral Within 30 days (routine) Cervical spinal stenosis Cervical radiculopathy at C5 Ordered: 06/03/2024 Health Maintenance Due Date Last Done Comments DISCUSS TOBACCO CESSATION (REFER TO SMARTSET #3718) 1955 DXA Scan 1956 Alpha-1 Antitrypsin 1974 Cologuard 2001 Fecal Occult Blood Test 2001 Sigmoidoscopy 2001 Depression Monitoring 09/13/2021 09/13/2020 Zoster Vaccines (2 of 2) 02/25/2022 12/31/2021 COVID-19 Vaccine ( season) 2023 Mammogram 12/11/2023 12/11/2022, 11/30, 09/03/2020 [...] Vaccine: 65+ Years Completed 04/26/2024, 07/24/2020, 08/05/2017 HPV (Gardasil) Vaccine Aged Out No lo nger eligible based on patient's age to complete this topic Hepatitis B Vaccine Aged Out No longe r eligible based on patient's age to complete this topic MENINGOCOCCAL (MENACTRA/MENVEO) Aged Out No longer eligible based on patient's age to complete this topic documented as of this encounter Medical Devices Not on filedocumented as of this encounter Visit Diagnoses Diagnosis Cervical spinal stenosis- Primary Spinal stenosis in cervical region Cervical radiculopathy at C5 Brachial neuritis or radiculitis nos documented in this encounter Care Teams Range Manager Relationship Specialty Start Date End Date Gray Diehl MD [address] [place] [address] PCP - General Family Medicine 06/20/20 documented as of this encounter
--- OUTSIDE RECORDS SUMMARY | 2024-06-04 13:36 | External Medical Summary | Summary of Care ---
Author Name Unknown Organization [facility] Address [address] [place] [address] Phone [phone] Care Team Providers Care Gas Station Attendant Name Role Phone Gray Diehl MD Primary Care Provider [phone] Reason for Referral * Evaluate & Treat - Unlimited Visits (Within 30 days (routine)) - Authorized Specialty Diagnoses / Procedures Referred By Irma french Referred To Contact Neuro/Ortho Surgery - Spine. / Neurological Surgery Diagnoses Cervical spinal stenosis Cervical radiculopathy at C5 Gray Diehl MD [address] [place] [address] Referral ID Status Reason Start Date Expiration Date Visits Requested Visits Authorized [id number] Authorized Specialty Services Required 06/03/2024 999 999 [...] (Late st Contact Info) Description 06/03/2024 Telephone [facility] [address] [place] [facility] [place] [address] Gray Diehl MD [address] [place] [facility] [address] Advice (Referral); Referral (Spinal Surgeon) Allergies [...] as there was a sooner appt in [place]. It may be gone by the time she calls back. Please give message to patient below from Dr. Diehl. 06/03/2024 * Telephone Encounter - Gray Diehl MD - 06/03/2024 1:53 PM EDT She is scheduled with dr Looney 10/06/24. I can not get that apt sooner. [facility] I do not know what the [...] FP office. Thank you, Jennifer Browne CPhT Urologic Surgeon II [facility] ([facility]) 06/03/2024,9:23 [...] Description 09/15/2024 10:00 AM EDT Imaging Radiology [facility] 1st [facility] [address] [place] [address] 10/07/2024 8:00 AM EST Office Visit Orthopaedics Spine Surgery, [facility] [address] [place] [address] Everett Sykes MD [address] [place] [...] Comments DISCUSS TOBACCO CESSATION (REFER TO SMARTSET #[id number]) 1955 DXA Scan 1955 Alpha-1 Antitrypsin 1974 [...] nos documented in this encounter Care Teams Gas Station Attendant Relationship Specialty Start Date End Date Gray Diehl MD [address] [place] [address] PCP - General Family Medicine 06/20/20 documented as of this encounter
--- OUTSIDE RECORDS SUMMARY | 2024-06-04 13:36 | External Medical Summary | Summary of Care ---
Author Name Unknown Organization [facility] Address [address] [place] [address] Phone [phone] Care Team Providers Care Misdraw Hand Name Role Phone Gray Diehl MD Primary Care Provider [phone] Reason for Referral * Evaluate & Treat - Unlimited Visits (Within 30 days (routine)) - Authorized Specialty Diagnoses / Procedures Referred By Irma french Referred To Contact Neuro/Ortho Surgery - Spine. / Neurological Surgery Diagnoses Cervical spinal stenosis Cervical radiculopathy at C5 Gray Diehl MD [address] [place] [address] Referral ID Status Reason Start Date Expiration Date Visits Requested Visits Authorized [id number] Authorized Specialty Services Required 06/03/[phone] [...] (Late st Contact Info) Description 06/03/2024 Telephone [facility] [address] [place] [facility] [place] [address] Gray Diehl MD [address] [place] [facility] [place] [address] Advice (Referral); Referral (Spinal Surgeon) Allergies [...] as there was a sooner appt in [place]. It may be gone by the time she calls back. Please give message to patient below from Dr. Diehl. 06/03/2024 * Telephone Encounter - Gray Diehl MD - 06/03/2024 1:53 PM EDT She is scheduled with dr Looney 10/06/24. I can not get that apt sooner. [facility] I do [...] FP office. Thank you, Jennifer Browne CPhT Licensed Marriage And Family Therapist II [facility] ([facility]) 06/03/2024,9:23 [...] Description 09/15/2024 10:00 AM EDT Imaging Radiology [facility] 1st [facility] [address] [place] [address] 10/07/2024 8:00 AM EST Office Visit Orthopaedics Spine Surgery, [facility] [address] [facility] [address] [place] [address] Everett Sykes MD [address] [place] [...] Comments DISCUSS TOBACCO CESSATION (REFER TO SMARTSET #[id number]) 1955 DXA Scan 1955 Alpha-1 Antitrypsin 1974 [...] nos documented in this encounter Care Teams Misdraw Hand Relationship Specialty Start Date End Date Gray Diehl MD [address] [place] [address] PCP - General Family Medicine 06/20/20 documented as of this encounter
--- OUTSIDE RECORDS SUMMARY | 2024-06-04 13:36 | External Medical Summary | Summary of Care ---
Author Name Unknown Organization [facility] Address [address] [place] [address] Phone [phone] Care Team Providers Care Cattle Producers Name Role Phone Gray Diehl MD Primary Care Provider [phone] Reason for Visit * Reason Onset Date Comments Referral 05/30/2024 EPIC 178 Referra l Encounter Details Date Type Department Care Team (Late st Contact Info) Description 05/30/2024 Telephone [facility] [address] [place] [address] Deidra Canales BSW [address], [place] [phone] Referral (EPIC 178 Referral ) Allergies No [...] encounter Miscellaneous Notes * Telephone Encounter - Leanne Artis BS - 06/03/2024 8:58 AM EDT 2nd outreach: Called [phone] and someone answered the phone shouted hello and then line disconnected. Unable to contact member. 3rd outreach set for 06/08/2024 * Telephone Encounter - Deidra Canales BSW - 05/30/2024 3:41 PM EDT Referring Provider: Gray Diehl MD [facility] Elisa Brooks Reason for referral: DX Schizophrenia, reviewed notes further, member recently seen in ER for "crazy thoughts and hallucinations" member feels this is related to the medications that the PCP had started her on, member also struggling with chronic pain management and on medications for same, Member feeling her medications are not right, and needing psychiatry, possible [facility] referral if needed as well. Outcome of referral: contacted member at: [phone], rings 2x no way to leave , was able to send a MyG with [facility] contact information 2nd attempt to be made 06/03/24 due to holiday. Member can be directed to [facility] Care Tommy Shepard 8a to 5p at [phone] documented in this encounter Plan of Treatment Upcoming Encounters Date Type Department Care Team (Late st Contact Info) Description 09/15/2024 10:00 AM EDT Imaging Radiology [facility] 1st [facility] [place] [address] [place] [address] 10/07/2024 8:00 AM EST Office Visit Orthopaedics Spine Surgery, [facility] [address] [place] [address] Everett Sykes MD [address] [place] [address] Scheduled Procedures Name Priority Associated Diagnoses Date/Ti me COLONOSCOPY FLEXIBLE PROXIMA L DIAGNOSTIC Recall Special screening for malignant neoplasms, colon Health Maintenance Due Date Last Done Comments DISCUSS TOBACCO CESSATION (REFER TO SMARTSET #[id number]) 1955 DXA Scan 1955 Alpha-1 Antitrypsin 1974 [...] filedocumented as of this encounter Care Teams Cattle Producers Relationship Specialty Start Date End Date Gray Diehl MD [address] [place] [facility] [place] [address] PCP - General Family Medicine 06/20/20 documented as of this encounter
[2024-06-04] MEDS: KETOROLAC TROMETHAMINE 15 MG/ML VIAL IV ONE (14:53)
[2024-06-04 15:02] LABS: Basophils # (auto) 0.16 K/uL (0.00-0.20); Basophils % (auto) 2.1 %; Eosinophils # (auto) 0.16 K/uL (0.00-0.50); Eosinophils % (auto) 2.1 %; Hematocrit (blood only) 34.9 % (37.0-47.0); Hemoglobin 11.6 g/dl (12.0-16.0); Immature Granulocytes # (auto) 0.03 K/uL (0.01-0.20); Immature Granulocytes % (auto) 0.4 %; Lymphocytes # (auto) 2.89 K/uL (1.20-3.40); Lymphocytes % (auto) 37.1 %; Mean Corpuscular Hemoglobin 30.1 pg (25.0-34.0); Mean Corpuscular Hgb Conc 33.2 g/dL (32.0-36.0); Mean Corpuscular Volume 90.6 fL (80.0-100.0); Mean Platelet Volume 8.9 fL (9.4-12.4); Monocytes # (auto) 0.52 K/uL (0.11-0.59); Monocytes % (auto) 6.7 %; Neutrophils # (auto) 4.02 K/uL (1.40-6.50); Neutrophils % (auto) 51.6 %; Platelet Count 379 K/uL (130-400); RDW Coefficient of Variation 14.1 % (11.5-14.5); RDW Standard Deviation 46.8 fL (36.4-46.3); Red Blood Count 3.85 M/uL (4.20-5.40); White Blood Count 7.78 K/ul (4.8-10.8)
[2024-06-04 15:17] LABS: Albumin Globulin Ratio 1.5 (0.9-2); Albumin Level 4.1 gm/dl (3.4-5.0); BUN Creatinine Ratio 22.2 (10-20); Bilirubin,Total 0.2 mg/dl (0.2-1.0); Calcium 9.6 mg/dl (8.6-10.3); Creatinine Clr Calc Pharmacy 69.1 ml/min; Est GFR (African American) 107.6 ml/min; Est GFR (Non-African American) 92.8 ml/min; Globulin 2.7 gm/dl (2.5-4.0); Potassium 4.2 mmol/L (3.5-5.1); Total Protein 6.8 gm/dl (6.0-8.3)
[2024-06-04 15:26] LABS: Appearance Urine Clear (Clear); Bilirubin Urine Negative (Negative); Blood Urine Negative (Negative); Color Urine Yellow; Glucose Urine UA Negative (Negative); Ketones Urine Negative (Negative); Leukocyte Esterase Urine Negative (Negative); Nitrite Urine Negative (Negative); Protein Urine Negative (Negative); Specific Gravity Urine 1.006 (1.000-1.030); Urobilinogen Urine Negative (Negative); pH Urine 6.5 (4.5-7.5)
[2024-06-04] MEDS: OPTIRAY 320 100ml IV ONE (16:13)
--- NOTE | 2024-06-04 17:17 | CT Scan Report ---
CT abd pelvis IV con only CLINICAL HISTORY: Renal colic, herniated disk TECHNIQUE: Helical axial images of the abdomen and pelvis were obtained and displayed. Automated dose lowering techniques and/or adjustment according to patient size were utilized for this exam. This e xam was performed with intravenous contrast. CT DOSE: 327.81 mGy.cm COMPARISON: Comparison is made to CT abdomen pelvis 05/24/2024 FINDINGS: Lower chest: No acute abnormality. Liver: Unremarkable. No focal lesions are seen. Gallbladder and biliary tree: No calcified gallstones. Normal caliber wall. No intra- or extrahepatic biliary ductal dilation. Pancreas: Unremarkable, no focal lesions. Spleen: Unremarkable. Adrenals: Unremarkable. Kidneys and ureters: Subcentimeter hypodensities are too small to characterize. Bladder: Limited evaluation due to underdistention. Reproductive organs: Unremarkable. Bowel: Diverticulosis is seen without diverticulitis. The appendix is normal. Lymph nodes Retroperitoneal: Unremarkable. Pelvic: Unremarkable. Mesenteric: Unremarkable. Peritoneum: Normal. Vessels: Atherosclerotic calcifications are seen. Infrarenal aortic aneurysm measures 27 mm. Abdominal wall: Unremarkable. Bones: Degenerative changes in the visualized spine. Multilevel compression deformities are seen. The se are grossly unchanged from prior exam. IMPRESSION: 1. No acute abnormality and in particular no evidence of obstructive stones. 2. Diverticulosis without diverticulitis. 3. Additional findings as above. ACT 112: Negative or not required by law. Electronically signed by: Cole Scott M.D. 06/04/2024 5:15 PM
--- NOTE | 2024-06-04 18:19 | Emergency Department Note ---
Impression & Plan Inability to urinate, Back pain ED Provider Note NAME: SHARON LEWIS AGE: 68 SEX: F : 1955 ARRIVES VIA: Walk-In INFORMANT: Patient, ED PROVIDER(S): Harris Singh MD CHIEF COMPLAINT: Unable to urinate, back pain HPI: This is a 68-year-old female with history of alcohol and cannabis use disorder, presenting for back pain and urinary dysfunction. Patient notes that she has not having 3 to 4 days with new low back pain. She notes she has chronic but this is more severe. She also notes that she has been unable to urinate for the past few hours. She has been dribbling for the past 1 day did not worsen to the inability urinate. She is very uncomfortable writhing in the stretcher. She is crying. She notes no saddle anesthesia, motor weakness, bowel incontinence. ROS: See above HPI for pertinent positives & negatives. A total of 10 systems reviewed and were otherwise negative. PHYSICAL EXAMINATION: General: resting comfortably in no acute distress Head: Normocephalic and atraumatic Eyes: Normal inspection, extraocular muscles intact Ear, nose, throat: Normal external exam Neck: Normal range of motion Respiratory: lungs clear to auscultation bilaterally Cardiovascular: Regular rate/rhythm, no murmur GI: soft, nontender, no guarding or rebound Extremities: nontender, moves all extremities Neuro: The patient awake and alert, appropriately conversive, no focal deficits, symmetric faces, cranial nerves 2-12 grossly intact Skin: Warm, dry, and intact MEDICAL DECISION MAKING: This is a 68-year-old male history of alcohol/cannabis use disorder presenting for back pain/tenderness function. Clinically lower concern for cauda equina but patient is unable to urinate at this time she has 300+ in her bladder. Consider UTI, bladder outlet obstruction. Will place Crum at this time due to extreme discomfort of the patient. Crum drains well, UTIs not seen on urinalysis. Patient CT ab/pelvis will be ordered for further evaluation. -Blood work is noted for slight anemia to 11.6. Otherwise no significant electrolyte abnormalities. Normal creatinine. -CT imaging reveals no acute process as per radiology. -Discussed with Dr. Mac, orthopedic spine who also agrees it is lower risk for cauda equina. Will be comfortable consulting on patient if necessary. -Due to persistent symptoms, patient is concerned about her back pain. Will admit for further workup including MRI. -Discussed with ÁNGELA Yanez for [facility] hospitalist service. She request waiting until MRI is back before admission. -MRI is reassuring, will be admitted to hospitalist service at this time Differential diagnosis: Cystitis, bladder outlet obstruction, pelvic floor dysfunction, cauda equina, herniated disc ER treatment provided: See below Diagnostics interpreted by me: ECG: None Cardiac Monitoring: An order was placed for continuous cardiac monitoring. The monitor shows a rate of 69 with sinus rhythm. Laboratory studies: As stated above and show below. Imaging studies: See below. Past Med/Surg History Problem List (Updated 06/04/24 @ 19:35 by Harris Singh MD) Back pain (Acute) Inability to urinate (Acute) Lumbar spinal stenosis Acute back pain Acute urinary retention Weight loss (Acute) Alcohol abuse (Acute) Cannabis abuse (Acute) Mood disorder (Acute) Arthritis of left ankle Respiratory distress (Acute) COPD exacerbation (Acute) Tachypnea (Acute) Leukocytosis (Acute) Hypokalemia (Acute) Pneumonia DVT prophylaxis COPD exacerbation Anxiety Tobacco use disorder Depression Hyperlipidemia Medical History Anxiety Personal history of alcoholism COPD (chronic obstructive pulmonary disease) Surgical History No pertinent past surgical history Family History Mother CHF (congestive heart failure) Father Prostate cancer Aunt Breast cancer Social History Smoking Status: Current every day smoker Tobacco Type: Cigarettes Hx Alcohol Use: Yes Alcohol type: beer Alcohol Intake Frequency: 4 or More x per/Week Alcohol Intake Frequency Comment: 4 beers/day Hx Substance Use: Yes Non-Prescribed Medications: Marijuana Preferred Language: Armenian Communication Ability: Effective Fine Dining Server Required: No Beliefs That Will Affect Care: None Current Living Situation: Alone Feels Safe at Home: Yes Assistive Devices: Cane Allergies Allergies Allergy/AdvReac Type Severity Reaction Status Date / Time No Known Allergies Allergy Verified 05/24/24 16:51 Home Meds Home Medications Medication Instructions Recorded Confirmed fluoxetine 40 mg capsule (Prozac) 40 mg PO QAM 06/12/20 06/04/24 albuterol sulfate 90 mcg/actuation 2 puff inhalation Q4 PRN Wheezing 07/12/20 06/04/24 aerosol inhaler hydroxyzine HCl 25 mg tablet 25 mg PO Q6 PRN anxiety 07/13/20 06/04/24 bupropion HCl 100 mg tablet,12 hr 100 mg PO QAM 05/05/21 06/04/24 sustained-release gabapentin 400 mg capsule 400 mg PO TID 05/05/21 06/04/24 atorvastatin 20 mg tablet 20 mg PO QPM 10/16/22 06/04/24 fluticasone 250 mcg-salmeterol 50 1 ea inhalation BID 10/16/22 06/04/24 mcg/dose blistr powdr for inhalation diclofenac sodium 1 % topical gel 2 g topical Q6 PRN JOINT PAIN 10/09/23 06/04/24 fluoxetine 20 mg capsule 20 mg PO QAM 10/09/23 06/04/24 meclizine 25 mg tablet 12.5 - 25 mg PO TID PRN Dizziness 10/09/23 06/04/24 albuterol sulfate 2.5 mg/3 mL 2.5 mg inhalation Q6H PRN Wheezing 05/24/24 06/04/24 (0.083 %) solution for nebulization fexofenadine 180 mg tablet 180 mg PO DAILY PRN ALLERGY 05/24/24 06/04/24 SYMPTOMS/ITCHING Results & Data (ED) Vital Signs Vital Signs - 24 hr 06/04/24 13:36 06/04/24 14:46 06/04/24 18:36 Temperature 36.5 C Temperature Source Temporal Artery Scan Pulse Rate 140 H Pulse Rate [Left Finger] 75 69 Respiratory Rate 16 18 14 Respiratory Effort / Characteristics Non-Labored Spontaneous Respiratory Depth Normal Blood Pressure [Right Arm] 145/82 H 184/101 H Blood Pressure Mean [Right Arm] 103 128 Pulse Oximetry 95 91 96 Oxygen Delivery Method Room Air Room Air Room Air Sepsis Recent Fever Within 48 Hours No Sepsis New/Unexplained Change in Mental Status No Sepsis Action Taken by Nursing No Action Required Laboratory Data 06/04/24 14:44 06/04/24 14:44 Lab Results 06/04/24 06/04/24 Range/Units 14:44 15:05 WBC 7.78 (4.8-10.8) K/ul RBC 3.85 L (4.20-5.40) M/uL Hgb 11.6 L (12.0-16.0) g/dl Hct 34.9 L (37.0-47.0) % MCV 90.6 (80.0-100.0) fL MCH 30.1 (25.0-34.0) pg MCHC 33.2 (32.0-36.0) g/dL RDW Std Deviation 46.8 H (36.4-46.3) fL RDW Coeff of Reyes 14.1 (11.5-14.5) % Plt Count 379 (130-400) K/uL MPV 8.9 L (9.4-12.4) fL Immature Gran % (Auto) 0.4 % Neut % (Auto) 51.6 % Lymph % (Auto) 37.1 % [place] % (Auto) 6.7 % Eos % (Auto) 2.1 % Baso % (Auto) 2.1 % Neut # (Auto) 4.02 (1.40-6.50) K/uL Lymph # (Auto) 2.89 (1.20-3.40) K/uL [place] # (Auto) 0.52 (0.11-0.59) K/uL Eos # (Auto) 0.16 (0.00-0.50) K/uL Baso # (Auto) 0.16 (0.00-0.20) K/uL Immature Gran # (Auto) 0.03 (0.01-0.20) K/uL Sodium 135 L (136-145) mmol/L Potassium 4.2 (3.5-5.1) mmol/L Chloride 101 (98-107) mmol/L Carbon Dioxide 28 (21-32) mmol/L Anion Gap 6 (3-11) BUN 14 (6-23) mg/dl Creatinine 0.63 (0.6-1.2) mg/dl Est Cr Clr Drug Dosing 69.1 ml/min Est GFR ( Amer) 107.6 ml/min Est GFR (Non-Af Amer) 92.8 ml/min BUN/Creatinine Ratio 22.2 H (10-20) Glucose 75 (70-99(Fasting)) mg/dl Calcium 9.6 (8.6-10.3) mg/dl Total Bilirubin 0.2 (0.2-1.0) mg/dl AST 16 (13-39) U/L ALT 15 (7-52) U/L Alkaline Phosphatase 142 H (34-104) U/L Total Protein 6.8 (6.0-8.3) gm/dl Albumin 4.1 (3.4-5.0) gm/dl Globulin 2.7 (2.5-4.0) gm/dl Albumin/Globulin Ratio 1.5 (0.9-2) Lipase 44 (11-82) U/L Urine Color Yellow Urine Appearance Clear (Clear) Urine pH 6.5 (4.5-7.5) Ur Specific Hooker 1.006 (1.000-1.030) Urine Protein Negative (Negative) Urine Glucose (UA) Negative (Negative) Urine Ketones Negative (Negative) Urine Blood Negative (Negative) Urine Nitrite Negative (Negative) Urine Bilirubin Negative (Negative) Urine Urobilinogen Negative (Negative) Ur Leukocyte Esterase Negative (Negative) Administered Medications Discontinued Medications Ioversol (Optiray 320 100ml) 93 ml IV ONCE ONE Stop: 06/04/24 16:14 Last Admin: 06/04/24 16:13 Dose: 93 ml Documented By: SHRUTIK Ketorolac Tromethamine (Ketorolac Tromethamine 15 Mg/Ml Vial) 15 mg IV NOW ONE Stop: 06/04/24 14:26 Last Admin: 06/04/24 14:53 Dose: 15 mg Documented By: POONAM Oxybutynin Chloride (Oxybutynin Chloride 5 Mg Tab) 5 mg PO NOW STA Stop: 06/04/24 19:03 Last Admin: 06/04/24 19:25 Dose: 5 mg Documented By: AY Imaging Data Radiologist's Impression: Abdomen/Pelvis CT 06/04/24 14:25 CT abd pelvis IV con only CLINICAL HISTORY: Renal colic, herniated disk TECHNIQUE: Helical axial images of the abdomen and pelvis were obtained and displayed. Automated dose lowering techniques and/or adjustment according to patient size were utilized for this exam. This exam was performed with intravenous contrast. CT DOSE: 327.81 mGy.cm COMPARISON: Comparison is made to CT abdomen pelvis 05/24/2024 FINDINGS: Lower chest: No acute abnormality. Liver: Unremarkable. No focal lesions are seen. Gallbladder and biliary tree: No calcified gallstones. Normal caliber wall. No intra- or extrahepatic biliary ductal dilation. Pancreas: Unremarkable, no focal lesions. Spleen: Unremarkable. Adrenals: Unremarkable. Kidneys and ureters: Subcentimeter hypodensities are too small to characterize. Bladder: Limited evaluation due to underdistention. Reproductive organs: Unremarkable. Bowel: Diverticulosis is seen without diverticulitis. The appendix is normal. Lymph nodes Retroperitoneal: Unremarkable. Pelvic: Unremarkable. Mesenteric: Unremarkable. Peritoneum: Normal. Vessels: Atherosclerotic calcifications are seen. Infrarenal aortic aneurysm measures 27 mm. Abdominal wall: Unremarkable. Bones: Degenerative changes in the visualized spine. Multilevel compression deformities are seen. These are grossly unchanged from prior exam. IMPRESSION: 1. No acute abnormality and in particular no evidence of obstructive stones. 2. Diverticulosis without diverticulitis. 3. Additional findings as above. ACT 112: Negative or not required by law. Electronically signed by: Cole Scott M.D. 06/04/2024 5:15 PM Lumbar Spine MRI 06/04/24 17:31 MR lumbar spine wo con CLINICAL HISTORY: lumbar pain, inability to urinate TECHNIQUE: Multiplanar sequences through the lumbar spine were obtained, without intravenous contrast. Comparison: Comparison is made to CT abdomen pelvis 06/04/2024 FINDINGS: The alignment is anatomical. L1-L2: No significant abnormality. L2-L3: No significant abnormality. L3-L4: Broad-based posterior disc bulge is seen with severe right and moderate left neural foraminal stenosis. L4-L5: Broad-based posterior disc bulge is seen with severe right and moderate left neural foraminal stenosis. L5-S1: Facet arthropathy is seen with moderate bilateral neural foraminal stenosis. The spinal ligaments are intact, without evidence of disruption or abnormal signal intensity. The spinal cord is normal in signal intensity and there is no evidence of cord contusion. There is no evidence of an extradural, intradural, extramedullary or intramedullary lesion. Visualized soft tissues are normal. IMPRESSION: Multilevel degenerative changes with up to severe right and moderate left neuroforaminal stenosis. ACT 112: Negative or not required by law. Electronically signed by: Cole Scott M.D. 06/04/2024 6:34 PM Discharge Plan Visit Data Chief Complaint: Unable to Void Stated Complaint: UNABLE TO VOID, ABDOMINAL PAIN ED Provider: Harris Singh Discharge Problem: Inability to urinate, Back pain Forms Stand Alone Forms: My [facility] Live Calendars Prescriptions Prescriptions: No Action fluoxetine [Prozac] 40 mg Capsule 40 mg PO QAM Rx Instructions: TOTAL DOSE 60 MG--TAKES WITH 20 MG CAP. albuterol sulfate 90 mcg/actuation HFA aerosol inhaler 2 puff INHALATION Q4 PRN (Reason: Wheezing) hydroxyzine HCl 25 mg tablet 25 mg PO Q6 PRN (Reason: anxiety) fluticasone propion-salmeterol 250-50 mcg/dose blister with device 1 ea INHALATION BID atorvastatin 20 mg tablet 20 mg PO QPM gabapentin 400 mg capsule 400 mg PO TID Rx Instructions: ON EXT MED HX--FILLED 04/21/24 FOR 100 DAY/300 CAPS. NOT ON [facility] MED LIST. bupropion HCl 100 mg tablet sustained-release 12 hr 100 mg PO QAM fluoxetine 20 mg capsule 20 mg PO QAM Rx Instructions: TOTAL DOSE 60 MG--TAKES WITH 40 MG CAP. meclizine 25 mg tablet 12.5 - 25 mg PO TID PRN (Reason: Dizziness) diclofenac sodium 1 % gel 2 g TOPICAL Q6 PRN (Reason: JOINT PAIN) Rx Instructions: LEFT ANKLE PAIN albuterol sulfate [Proventil] 2.5 mg /3 mL (0.083 %) Solution For Nebulization 2.5 mg INHALATION Q6H PRN (Reason: Wheezing) fexofenadine [Maria Luisa] 180 mg Tablet 180 mg PO DAILY PRN (Reason: ALLERGY SYMPTOMS/ITCHING) Referrals Referrals: Gray Diehl MD [Primary Care Provider] -
--- NOTE | 2024-06-04 18:36 | Magnetic Resonance Report ---
MR lumbar spine wo con CLINICAL HISTORY: lumbar pain, inability to urinate TECHNIQUE: Multiplanar sequences through the lumbar spine were obtained, without intravenous contrast . Comparison: Comparison is made to CT abdomen pelvis 06/04/2024 FINDINGS: The alignment is anatomical. L1-L2: No significant abnormality. L2-L3: No significant abnormality. L3-L4: Broad-based posterior disc bulge is seen with severe right and moderate left neural foraminal stenosis. L4-L5: Broad-based posterior disc bulge is seen with severe right and moderate left neural foraminal stenosis. L5-S1: Facet arthropathy is seen with moderate bilateral neural foraminal stenosis. The spinal ligaments are intact, without evidence of disruption or abnormal signal intensity. The spi nal cord is normal in signal intensity and there is no evidence of cord contusion. There is no eviden ce of an extradural, intradural, extramedullary or intramedullary lesion. Visualized soft tissues are normal. IMPRESSION: Multilevel degenerative changes with up to severe right and moderate left neuroforaminal stenosis. ACT 112: Negative or not required by law. Electronically signed by: Cole Scott M.D. 06/04/2024 6:34 PM
[2024-06-04] MEDS: oxyBUTYnin chloride 5 MG TAB PO STA (19:25)
--- NOTE | 2024-06-04 19:25 | History & Physical Report ---
Date of Service June 04, 2024 Assessment & Plan (1) Acute urinary retention: (2) Acute back pain: (3) Lumbar spinal stenosis: (4) Tobacco use disorder: (5) Depression: (6) Hyperlipidemia: (7) COPD (chronic obstructive pulmonary disease): Plan This is a 68-year-old female who has significant past medical history of COPD, HTN, HLD, tobacco abuse, alcohol abuse, cervical spinal stenosis from C3-C7, depression with anxiety who presents to ED secondary to inability to urinate and acute back pain. Acute urinary retention Acute low back pain admit to medical dean placed in ED with significant output pt continues to report feeling like she has to urinate and discomfort, + CVA tenderness as well trial oxybutnin X 1, schedule tylenol, prn oxy IR consult urology Consult Dr. Mac given MRI findings --MRI Lumbar spine: Multilevel degenerative changes with up to severe right and moderate left neuroforaminal stenosis. obtain Renal/Bladder combo r/o hydro given physical exam findings Empirically tx with IV rocephin COPD no acute exac continue inhalers Tobacco abuse encourage cessation nicotine patch ordered Depression chronic, stable - continue prozac HLD Chronic, stable- continue statin Alcohol abuse drinks 4-6 beers daily no prior hx of DT or withdrawals AWSS protocol, she is already on scheduled gabapentin daily thiamine, FA Chronic Marijuana use DVT ppx: SCDS for now until eval by ortho spine Dispo: admit to med/surg FULL CODE PCP: Fazal Pt was seen and examined in collaboration with Dr. Jiménez, please see addendum A total of 76 min was spent coordinating, documenting, and providing care for this patient excluding time spent in the performance of separately billed services. This included personally viewing all current laboratories and imaging studies, medication reconciliation, outpatient chart review, and discussion with specialists. History of Present Illness Chief Complaint: Acute back pain and inability to urinate. Primary Care Provider: Gray Diehl MD This is a 68-year-old female who has significant past medical history of COPD, HTN, HLD, tobacco abuse, alcohol abuse, cervical spinal stenosis from C3-C7, depression with anxiety who presents to ED secondary to inability to urinate and acute back pain. She states that 3 days ago whenever she got up from her couch she developed acute low back pain. Pain was made worse with movement and improved with rest. She tried a pain relief patch as well as ibuprofen and Tylenol without improvement. She continues to have the pain today and noticed around noon she felt like she had to urinate, but was unable to. She had significant lower abdominal pain due to the feeling of needing to urinate. She denies similar symptoms in the past. She reports known history of cervical spinal stenosis due to prior accident several years ago. She recently had an MRI that showed stenosis from C3-C7 and she has chronic numbness specifically to her right upper extremity. She denies any radicular symptoms to her lower extremities including pain, numbness or tingling. She denies any saddle anesthesia. She is moving bowels regularly and her last bowel movement was today. in ED patient was hypertensive. Due to her inability to urinate a Dean catheter was placed and 900 cc of urine was evacuated. She underwent a CT abdomen pelvis which was was without acute abnormality. Her CBC and CMP was generally unremarkable except hemoglobin revealed 11.6 and 34.9, BUN and creatinine were normal and urinalysis was negative. Lumbar spine MRI revealed multilevel disc disease with disc protusion and moderate to severe stenosis. Patient's outpatient records were reviewed in [facility]. Her brother was at bedside who also help elicit history. Allergies Allergy/AdvReac Type Severity Reaction Status Date / Time No Known Allergies Allergy Verified 05/24/24 16:51 Home Medications Medication Instructions Recorded Confirmed Type fluoxetine 40 mg capsule (Prozac) 40 mg PO QAM 06/12/20 06/04/24 History albuterol sulfate 90 mcg/actuation 2 puff inhalation Q4 PRN Wheezing 07/12/20 06/04/24 History aerosol inhaler hydroxyzine HCl 25 mg tablet 25 mg PO Q6 PRN anxiety 07/13/20 06/04/24 History bupropion HCl 100 mg tablet,12 hr 100 mg PO QAM 05/05/21 06/04/24 History sustained-release gabapentin 400 mg capsule 400 mg PO TID 05/05/21 06/04/24 History atorvastatin 20 mg tablet 20 mg PO QPM 10/16/22 06/04/24 History fluticasone 250 mcg-salmeterol 50 1 ea inhalation BID 10/16/22 06/04/24 History mcg/dose blistr powdr for inhalation diclofenac sodium 1 % topical gel 2 g topical Q6 PRN JOINT PAIN 10/09/23 06/04/24 History fluoxetine 20 mg capsule 20 mg PO QAM 10/09/23 06/04/24 History meclizine 25 mg tablet 12.5 - 25 mg PO TID PRN Dizziness 10/09/23 06/04/24 History albuterol sulfate 2.5 mg/3 mL 2.5 mg inhalation Q6H PRN Wheezing 05/24/24 06/04/24 History (0.083 %) solution for nebulization fexofenadine 180 mg tablet 180 mg PO DAILY PRN ALLERGY 05/24/24 06/04/24 History SYMPTOMS/ITCHING Past Med/Surg History Problem List (Updated 06/04/24 @ 19:35 by Harris Singh MD) Back pain (Acute) Inability to urinate (Acute) Lumbar spinal stenosis Acute back pain Acute urinary retention Weight loss (Acute) Alcohol abuse (Acute) Cannabis abuse (Acute) Mood disorder (Acute) Arthritis of left ankle Respiratory distress (Acute) COPD exacerbation (Acute) Tachypnea (Acute) Leukocytosis (Acute) Hypokalemia (Acute) Pneumonia DVT prophylaxis COPD exacerbation Anxiety Tobacco use disorder Depression Hyperlipidemia Medical History Anxiety Personal history of alcoholism COPD (chronic obstructive pulmonary disease) Surgical History No pertinent past surgical history Family History Mother CHF (congestive heart failure) Father Prostate cancer Aunt Breast cancer Social History Smoking Status: Current every day smoker Tobacco Type: Cigarettes Hx Alcohol Use: Yes Alcohol type: beer Alcohol Intake Frequency: 4 or More x per/Week Alcohol Intake Frequency Comment: 4 beers/day Hx Substance Use: Yes Non-Prescribed Medications: Marijuana Preferred Language: Scottish Communication Ability: Effective Powder Nipper Required: No Beliefs That Will Affect Care: None Current Living Situation: Alone Feels Safe at Home: Yes Assistive Devices: Cane Review of Systems Review of Systems: All systems reviewed & are unremarkable except as noted in HPI & below Physical Exam Physical Exam: please refer to Dr. Jiménez addendum for physical exam findings. Results & Data Results & Data Vital Signs (Past 12 Hours) Vital Signs Temp Pulse Pulse Resp BP Pulse Ox O2 Del Method 06/04/24 18:36 69 14 184/101 H 96 Room Air 06/04/24 14:46 75 18 145/82 H 91 Room Air 06/04/24 13:36 36.5 C 140 H 16 95 Room Air Laboratory Results I have independently reviewed and interpreted patient's admitting labs including CBC, CMP,lipase, UA Diagnostic Findings Abdomen/Pelvis CT 06/04/24 14:25 CT abd pelvis IV con only CLINICAL HISTORY: Renal colic, herniated disk TECHNIQUE: Helical axial images of the abdomen and pelvis were obtained and displayed. Automated dose lowering techniques and/or adjustment according to patient size were utilized for this exam. This exam was performed with intravenous contrast. CT DOSE: 327.81 mGy.cm COMPARISON: Comparison is made to CT abdomen pelvis 05/24/2024 FINDINGS: Lower chest: No acute abnormality. Liver: Unremarkable. No focal lesions are seen. Gallbladder and biliary tree: No calcified gallstones. Normal caliber wall. No intra- or extrahepatic biliary ductal dilation. Pancreas: Unremarkable, no focal lesions. Spleen: Unremarkable. Adrenals: Unremarkable. Kidneys and ureters: Subcentimeter hypodensities are too small to characterize. Bladder: Limited evaluation due to underdistention. Reproductive organs: Unremarkable. Bowel: Diverticulosis is seen without diverticulitis. The appendix is normal. Lymph nodes Retroperitoneal: Unremarkable. Pelvic: Unremarkable. Mesenteric: Unremarkable. Peritoneum: Normal. Vessels: Atherosclerotic calcifications are seen. Infrarenal aortic aneurysm measures 27 mm. Abdominal wall: Unremarkable. Bones: Degenerative changes in the visualized spine. Multilevel compression deformities are seen. These are grossly unchanged from prior exam. IMPRESSION: 1. No acute abnormality and in particular no evidence of obstructive stones. 2. Diverticulosis without diverticulitis. 3. Additional findings as above. ACT 112: Negative or not required by law. Electronically signed by: Cole Scott M.D. 06/04/2024 5:15 PM Lumbar Spine MRI 06/04/24 17:31 MR lumbar spine wo con CLINICAL HISTORY: lumbar pain, inability to urinate TECHNIQUE: Multiplanar sequences through the lumbar spine were obtained, without intravenous contrast. Comparison: Comparison is made to CT abdomen pelvis 06/04/2024 FINDINGS: The alignment is anatomical. L1-L2: No significant abnormality. L2-L3: No significant abnormality. L3-L4: Broad-based posterior disc bulge is seen with severe right and moderate left neural foraminal stenosis. L4-L5: Broad-based posterior disc bulge is seen with severe right and moderate left neural foraminal stenosis. L5-S1: Facet arthropathy is seen with moderate bilateral neural foraminal stenosis. The spinal ligaments are intact, without evidence of disruption or abnormal signal intensity. The spinal cord is normal in signal intensity and there is no evidence of cord contusion. There is no evidence of an extradural, intradural, extramedullary or intramedullary lesion. Visualized soft tissues are normal. IMPRESSION: Multilevel degenerative changes with up to severe right and moderate left neuroforaminal stenosis. ACT 112: Negative or not required by law. Electronically signed by: Cole Scott M.D. 06/04/2024 6:34 PM Medications Administered Medication List Discontinued Medications Ioversol (Optiray 320 100ml) 93 ml IV ONCE ONE Stop: 06/04/24 16:14 Last Admin: 06/04/24 16:13 Dose: 93 ml Documented By: EULALIA Ketorolac Tromethamine (Ketorolac Tromethamine 15 Mg/Ml Vial) 15 mg IV NOW ONE Stop: 06/04/24 14:26 Last Admin: 06/04/24 14:53 Dose: 15 mg Documented By: POONAM Code Status & VTE Plan Code Status FULL CODE VTE Prophylaxis Plan VTE Prophylaxis will be ordered: Yes Supervising Physician Co-Signing Physician Notes Attending addendum; The patient was seen and examined in emergency room in presence of the family member She has been complaining of problem with urination for a while Could not pass any urine today and she was brought in in the ER Also complained chronic back pain without any radiation Denies any problem with bowel habit, no weakness involving any of the limbs On examination Lying in bed without any apparent distress Hemodynamically stable with blood pressure on the upper side Chest-clear to auscultate bilaterally Heart-S1-S2, regular Abdomen-mildly distended and tender. Left renal angle is slightly distended and painful on palpation Extremities-negative for any edema ACCOUNTS PAYABLE REPRESENTATIVE-alert, awake and oriented x 3. No focal sensory or motor deficit appreciated. Her admission labs, imaging studies and EKG reviewed Lumbar spine MRI did show multilevel degenerative changes with up to severe right and moderate left neuroforaminal stenosis Has significant retention of urine and has been requiring catheter placement Will get a orthospine evaluation or serology evaluation while in the hospital Will get ultrasound of the abdomen to rule out an obstructive uropathy/hydronephrosis Agree with and take full responsibility of the assessment and plan as outlined above by ÁNGELA Cervantes Dr
[2024-06-04] MEDS ORDERED: hydrALAZINE HCL 20 MG/ML VIAL IV PRN (19:37)
[2024-06-04] MEDS ORDERED: MAGNESIUM HYDROXIDE SUSP 30 ML UDC PO PRN (20:14)
[2024-06-04] MEDS ORDERED: ALUMINUM/MAGNESIUM SUSP 30 ML UDC PO PRN (20:14)
[2024-06-04] MEDS ORDERED: ONDANSETRON INJ 2 MG/ML 2 ML VIAL IV PRN (20:14)
[2024-06-04] MEDS ORDERED: LORazepam 1 MG TAB PO PRN (20:14)
[2024-06-04] MEDS ORDERED: POLYETHYLENE (MIRALAX) 17 GM PACK PO PRN (20:14)
--- NOTE | 2024-06-04 20:33 | Urology Consultation ---
Date of Consultation June 04, 2024 Assessment & Plan (1) Inability to urinate: Patient has been admitted on the hospital service. From a urologic perspective we recommend the following: Because of her urinary retention is not entirely clear. Her medications were reviewed and there are no obvious offending medications that would contribute to urinary retention. The patient is noted to have acute low back pain and her MRI of her lumbar spine was noted. It is possible that perhaps this could be con tributing to her urinary retention For the present time would recommend maintaining Crum catheter to gravity drainage. Of note the patient does not have evidence of urinary tract infection Of note the patient also does not have any evidence of kidney stones or any other obstructive uropathy There is no evidence of acute kidney injury Due to the patient's MRI findings of her lumbar spine, the primary service is consulted Ortho/spine and we will await their recommendations Additional recommendations will be forthcoming based on her clinical course as it unfolds History of Present Illness Reason for Consultation: Urinary retention Attending Physician: Felecia Jiménez MD History of Present Illness This is a 68-year-old female who presented to the emergency department secondary to the inability to urinate. She does note that approximately 3 days ago she developed acute low back pain that was worse with movement and felt somewhat better when she was resting. Patient says that she tried [id number] Lidoderm patches as well as ibuprofen and acetaminophen which did not improve her pain. The patient notes that she was able to urinate since her pain began but she did note that the urine stream was somewhat weaker and she did have some urinary hesitancy. She felt as though that she could empty her bladder completely and denied any dysuria. She did not have any fevers, shakes, or chills. She denies any back or flank pain. She denies any history of hematuria. Patient notes that approximate 11:00 AM today she had felt the urge to urinate but could not and she therefore presented to the emergency department. Concerning the patient's back pain she denies any pain shooting down her legs. She also denies any numbness or tingling of her lower extremities. She denies any weakness in her lower extremities and she denies any recent falls. Since arrival to the hospital the patient has had labs and imaging which I independent reviewed. The patient had a CT scan of the abdomen pelvis. This showed no acute abnormalities in the abdomen or pelvis, specifically no evidence of obstructive kidney stones. The patient was noted to have degenerative changes in the visualized spine with multiple compression deformities. This was followed up with a lumbar spine MRI that showed multilevel degenerative changes with severe right and moderate left neuroforaminal stenosis. Labs included CBC her white blood cell count and platelet count were normal. Hemoglobin and hematocrit are 11.6 and 34.9. Chemistry profile showed sodium is 135 with a normal potassium. BUN and creatinine were both normal. Urinalysis was not indicative of infection. Since arrival to the emergency department the patient had a Crum catheter placed with nearly 900 cc of urine was obtained. At the time my interview the patient was resting comfortably in bed and she was in no distress. Allergies Allergy/AdvReac Type Severity Reaction Status Date / Time No Known Allergies Allergy Verified 05/24/24 16:51 Home Medications Medication Instructions Recorded Confirmed Type fluoxetine 40 mg capsule (Prozac) 40 mg PO QAM 06/12/20 06/04/24 History albuterol sulfate 90 mcg/actuation 2 puff inhalation Q4 PRN Wheezing 07/12/20 06/04/24 History aerosol inhaler hydroxyzine HCl 25 mg tablet 25 mg PO Q6 PRN anxiety 07/13/20 06/04/24 History bupropion HCl 100 mg tablet,12 hr 100 mg PO QAM 05/05/21 06/04/24 History sustained-release gabapentin 400 mg capsule 400 mg PO TID 05/05/21 06/04/24 History atorvastatin 20 mg tablet 20 mg PO QPM 10/16/22 06/04/24 History fluticasone 250 mcg-salmeterol 50 1 ea inhalation BID 10/16/22 06/04/24 History mcg/dose blistr powdr for inhalation diclofenac sodium 1 % topical gel 2 g topical Q6 PRN JOINT PAIN 10/09/23 06/04/24 History fluoxetine 20 mg capsule 20 mg PO QAM 10/09/23 06/04/24 History meclizine 25 mg tablet 12.5 - 25 mg PO TID PRN Dizziness 10/09/23 06/04/24 History albuterol sulfate 2.5 mg/3 mL 2.5 mg inhalation Q6H PRN Wheezing 05/24/24 06/04/24 History (0.083 %) solution for nebulization fexofenadine 180 mg tablet 180 mg PO DAILY PRN ALLERGY 05/24/24 06/04/24 History SYMPTOMS/ITCHING Patient History Medical History Anxiety Personal history of alcoholism COPD (chronic obstructive pulmonary disease) Surgical History No pertinent past surgical history Family History Mother CHF (congestive heart failure) Father Prostate cancer Aunt Breast cancer Social History Smoking Status: Current every day smoker Tobacco Type: Cigarettes Hx Alcohol Use: Yes Alcohol type: beer Alcohol Intake Frequency: 4 or More x per/Week Alcohol Intake Frequency Comment: 4 beers/day Hx Substance Use: Yes Non-Prescribed Medications: Marijuana Preferred Language: Citizen Of [place] Communication Ability: Effective Radio Tester Required: No Beliefs That Will Affect Care: None Current Living Situation: Alone Feels Safe at Home: Yes Assistive Devices: Cane Review of Systems Review of Systems: All systems reviewed & are unremarkable except as noted in HPI & below Physical Exam Constitutional: + thin; no acute distress Eyes: Wears glasses ENMT: Ears: no hearing impairment and no external ear abnormality Mouth: no oropharynx abnormality Neck: trachea midline Respiratory: normal respiratory effort; no respiratory distress and no labored breathing Cardiovascular: Rate/Rhythm: regular rate and regular rhythm Gastrointestinal (Abdomen): Abdomen is soft and nondistended. There is no suprapubic discomfort with palpation. There is no pain in her abdomen with palpation. Musculoskeletal: No calf tenderness Skin: no rashes Neurologic: moves all extremities The patient is able to move her lower extremities without noted focal deficits Psychiatric: A+Ox3, euthymic affect Genitourinary: No CVA tenderness noted with percussion bilaterally. A Crum catheter is in place draining clear yellow urine Results & Data Vital Signs (Past 12 Hours) Vital Signs Temp Pulse Pulse Resp BP Pulse Ox O2 Del Method 06/04/24 18:36 69 14 184/101 H 96 Room Air 06/04/24 14:46 75 18 145/82 H 91 Room Air 06/04/24 13:36 36.5 C 140 H 16 95 Room Air PG Care Time/CCT Total # of Minutes Spent Total Time Spent with Patient: Total time spent is greater than 50% in coordination of care (as documented) at patient's floor/unit and/or counseling patient: Coding Level of Care Code 28630 INT INP/OBS CARE 3/75MIN Diagnoses Inability to urinate R33.9
[2024-06-04] MEDS: cefTRIAXone SODIUM 1,000 MG/50 ML BAG IV SCH (21:41)
[2024-06-04] MEDS: LIDOCAINE 5% 1 PATCH TD SCH (21:42)
[2024-06-04] MEDS: NICOTINE 14 MG/24 HR PATCH TD SCH (21:44)
[2024-06-04] MEDS: DOCUSATE SODIUM 100 MG CAP PO SCH (21:47)
[2024-06-04] MEDS: ATORVASTATIN 20 MG TAB PO SCH (21:47)
[2024-06-04] MEDS: FLUTICASONE/VILANTEROL 100/25MCG 14 PUFFS/INHALER INH SCH (21:47)
[2024-06-04] MEDS: ACETAMINOPHEN 325 MG TAB PO SCH (21:48)
[2024-06-04] MEDS: GABAPENTIN 400 MG CAP PO SCH (21:48)
--- NOTE | 2024-06-05 01:55 | Ultrasound Report ---
Exam(s): US RENAL EXAM: US Retroperitoneal Complete, Renal CLINICAL HISTORY: Pain. TECHNIQUE: Real-time complete ultrasound of the retroperitoneum with image documentation. COMPARISON: No relevant prior studies available. FINDINGS: Right kidney: Question a lesion of the interpolar right kidney. The right kidney measures 9.4 cm. No stones. No hydronephrosis. Left kidney: Left kidney measures 9.0 cm. No stones. No hydronephrosis. Bladder: Unremarkable as visualized. IMPRESSION: Question a lesion of the interpolar right kidney. Recommend further evaluation with renal mass protocol CT or MRI. Electronically signed by: Jacki Pringle MD 06/05/24 01:54 AM
[2024-06-05 07:17] LABS: Basophils # (auto) 0.14 K/uL (0.00-0.20); Basophils % (auto) 2.1 %; Eosinophils # (auto) 0.27 K/uL (0.00-0.50); Hematocrit (blood only) 34.8 % (37.0-47.0); Hemoglobin 11.5 g/dl (12.0-16.0); Immature Granulocytes # (auto) 0.01 K/uL (0.01-0.20); Immature Granulocytes % (auto) 0.1 %; Lymphocytes # (auto) 2.27 K/uL (1.20-3.40); Lymphocytes % (auto) 33.8 %; Mean Corpuscular Hemoglobin 29.9 pg (25.0-34.0); Mean Corpuscular Volume 90.6 fL (80.0-100.0); Mean Platelet Volume 8.9 fL (9.4-12.4); Monocytes # (auto) 0.53 K/uL (0.11-0.59); Monocytes % (auto) 7.9 %; Neutrophils % (auto) 52.1 %; Platelet Count 375 K/uL (130-400); RDW Coefficient of Variation 14.2 % (11.5-14.5); RDW Standard Deviation 47.3 fL (36.4-46.3); Red Blood Count 3.84 M/uL (4.20-5.40); White Blood Count 6.72 K/ul (4.8-10.8)
[2024-06-05 07:38] LABS: Albumin Globulin Ratio 1.5 (0.9-2); Albumin Level 3.8 gm/dl (3.4-5.0); BUN Creatinine Ratio 18.3 (10-20); Bilirubin,Total 0.3 mg/dl (0.2-1.0); Calcium 8.8 mg/dl (8.6-10.3); Creatinine Clr Calc Pharmacy 71.1 ml/min; Est GFR (African American) 109.3 ml/min; Est GFR (Non-African American) 94.3 ml/min; Globulin 2.6 gm/dl (2.5-4.0); Potassium 4.1 mmol/L (3.5-5.1); Total Protein 6.4 gm/dl (6.0-8.3)
--- NOTE | 2024-06-05 08:49 | Urology Progress Note ---
Date of Service June 05, 2024 Assessment & Plan (1) Inability to urinate: Plan: Urinary retentionpossibly secondary to neurological deficit? It is interesting because she does not seem to manifest a lot of other neurological symptoms aside from some pain For the time being from a standpoint leave the catheter in place We can try a voiding trial at some stage in the future pending other workup and evaluations I do not believe she needs to be followed by urology consistently during this hospitalization Admission and Anticipated Discharge Date Admission Date: June 04, 2024 Subjective Seen in consultation by Donavan Newton PA-C last night Reviewed her imaging, her labs, her vitals, her urine output She feels okay this morning except for lower back pain She does seem to be moving all of her extremities She is not complaining about the catheter Her vitals are stable Her labs are stable Physical Exam Physical Exam: Crum catheter in position draining clear urine Results & Data Vital Signs (Past 12 Hours) Vital Signs Temp Pulse Resp BP Pulse Ox O2 Del Method 06/05/24 07:10 36.6 C 78 12 176/88 H 95 Room Air 06/05/24 02:48 36.4 C L 69 14 162/72 H 96 Room Air 06/04/24 23:57 36.6 C 64 16 150/67 H 94 Room Air PG Care Time/CCT Total # of Minutes Spent Total Time Spent with Patient: Total time spent is greater than 50% in coordination of care (as documented) at patient's floor/unit and/or counseling patient: Coding Level of Care Code 41330 SUB INP/OBS CARE 2/35MIN Diagnoses Inability to urinate R33.9
[2024-06-05] MEDS: buPROPion SR 100 MG TABCR PO SCH (09:27)
[2024-06-05] MEDS: FLUoxetine HCL 20 MG CAP PO SCH ×2 (09:28→09:29)
[2024-06-05] MEDS: FOLIC ACID 1 MG TAB PO SCH (09:29)
[2024-06-05] MEDS: THIAMINE HCL 100 MG TAB PO SCH (09:30)
--- NOTE | 2024-06-05 10:11 | Hospitalist Progress Note ---
Date of Service June 05, 2024 Assessment & Plan (1) Acute urinary retention: (2) Acute back pain: (3) Lumbar spinal stenosis: (4) Tobacco use disorder: (5) Depression: (6) Hyperlipidemia: (7) COPD (chronic obstructive pulmonary disease): Plan 68-year-old female who has significant past medical history of COPD, HTN, HLD, tobacco abuse, alcohol abuse, cervical spinal stenosis from C3-C7, depression with anxiety who presents to ED secondary to inability to urinate and acute back pain. Acute urinary retention Acute low back pain --MRI Lumbar spine: Multilevel degenerative changes with up to severe right and moderate left neuroforaminal stenosis. UA not suggestive of UTI Stop ceftriaxone and monitor Currently has dean in Urology evaluation noted Discussed with Ortho Spine Dr Mac. No surgical intervention recommended Patient has appt scheduled with Ortho Spine Dr Sykes in Sep. Will have Ang call for earlier appt tomorrow Plan for voiding trial tomorrow COPD No acute exac Continue inhalers Tobacco abuse Counseled regarding smoking cessation Continue nicotine patch Depression Chronic, stable - continue prozac HLD Chronic, stable- continue statin Alcohol abuse Drinks 4-6 beers daily No prior hx of DT or withdrawals AWSS protocol, she is already on scheduled gabapentin Counseled regarding alcohol use Chronic Marijuana use DVT ppx: SCDS FULL CODE PCP: Fazal Potts spent a total of 50 minutes coordinating, documenting and providing care for this patient excluding time spent in performance of separately billed services Admission and Anticipated Discharge Date Admission Date: June 04, 2024 Subjective Patient seen and examined Reports low back pain that started 5-6 days Reports urinary retention prior to presentation Reports chronic paresthesia in UE due to cervical stenosis Denied other complaints Physical Exam Constitutional: + well hydrated and + thin; no acute dis tress Eyes: PERRL, conjunctivae normal, anicteric sclerae ENMT: external ear and nose normal, oropharynx normal Respiratory: normal respiratory effort, lungs clear to auscultation Cardiovascular: Rate/Rhythm: regular rate and regular rhythm Gastrointestinal (Abdomen): normal bowel sounds, soft, nontender, no hepatosplenomegaly Musculoskeletal: no cyanosis or clubbing, extremities motor strength 5/5 Neurologic: PERRL, EOMI, accommodation nl, no face palsy, no dysarthria Psychiatric: A+Ox3, euthymic affect Results & Data Results & Data Vital Signs (Past 12 Hours) Vital Signs Temp Pulse Resp BP Pulse Ox O2 Del Method 06/05/24 09:33 Room Air 06/05/24 07:10 36.6 C 78 12 176/88 H 95 Room Air 06/05/24 02:48 36.4 C L 69 14 162/72 H 96 Room Air 06/04/24 23:57 36.6 C 64 16 150/67 H 94 Room Air Laboratory Results Abnormal lab results 06/04/24 06/05/24 Range/Units 14:44 06:50 RBC 3.85 L 3.84 L (4.20-5.40) M/uL Hgb 11.6 L 11.5 L (12.0-16.0) g/dl Hct 34.9 L 34.8 L (37.0-47.0) % RDW Std Deviation 46.8 H 47.3 H (36.4-46.3) fL MPV 8.9 L 8.9 L (9.4-12.4) fL Sodium 135 L (136-145) mmol/L BUN/Creatinine Ratio 22.2 H (10-20) Alkaline Phosphatase 142 H 129 H (34-104) U/L
--- NOTE | 2024-06-05 10:39 | Orthopedic Consultation ---
Date of Consultation June 05, 2024 Assessment & Plan (1) Back pain: MRI lumbar spine available for review demonstrates multilevel facet hypertrophy with varying degrees of subarticular and foraminal disease. There is no gross neural compression however. There is no central canal stenosis. Her lumbar sp ine does not account for her current urinary symptoms. Her back pain appears to be more muscular in nature and would be best served with therapy or perhaps interventional pain management. She is not a surgical candidate at this time. She has a established spine physician at [facility] and will follow-up with that individual. History of Present Illness Reason for Consultation: Back pain with urinary retention Attending Physician: Edwina Carrington MD History of Present Illness This is a 68 female presents to the hospital yesterday with months of back pain and what she feels is urinary retention. She denies any perineal numbness. Denies any numbness or tingling or pain into the lower extremities. Denies any significant trauma fall or event. Her pain is described as involving the left flank. She also describes chronic numbness and tingling of bilateral upper extremities. Allergies Allergy/AdvReac Type Severity Reaction Status Date / Time No Known Allergies Allergy Verified 05/24/24 16:51 Home Medications Medication Instructions Recorded Confirmed Type fluoxetine 40 mg capsule (Prozac) 40 mg PO QAM 06/12/20 06/04/24 History albuterol sulfate 90 mcg/actuation 2 puff inhalation Q4 PRN Wheezing 07/12/20 06/04/24 History aerosol inhaler hydroxyzine HCl 25 mg tablet 25 mg PO Q6 PRN anxiety 07/13/20 06/04/24 History bupropion HCl 100 mg tablet,12 hr 100 mg PO QAM 05/05/21 06/04/24 History sustained-release gabapentin 400 mg capsule 400 mg PO TID 05/05/21 06/04/24 History atorvastatin 20 mg tablet 20 mg PO QPM 10/16/22 06/04/24 History fluticasone 250 mcg-salmeterol 50 1 ea inhalation BID 10/16/22 06/04/24 History mcg/dose blistr powdr for inhalation diclofenac sodium 1 % topical gel 2 g topical Q6 PRN JOINT PAIN 10/09/23 06/04/24 History fluoxetine 20 mg capsule 20 mg PO QAM 10/09/23 06/04/24 History meclizine 25 mg tablet 12.5 - 25 mg PO TID PRN Dizziness 10/09/23 06/04/24 History albuterol sulfate 2.5 mg/3 mL 2.5 mg inhalation Q6H PRN Wheezing 05/24/24 06/04/24 History (0.083 %) solution for nebulization fexofenadine 180 mg tablet 180 mg PO DAILY PRN ALLERGY 05/24/24 06/04/24 History SYMPTOMS/ITCHING Patient History Medical History Anxiety Personal history of alcoholism COPD (chronic obstructive pulmonary disease) Surgical History No pertinent past surgical history Family History Mother CHF (congestive heart failure) Father Prostate cancer Aunt Breast cancer Social History Smoking Status: Heavy tobacco smoker Tobacco Type: Cigarettes Second Hand Exposure: No; Do You Dip or Chew Tobacco: No; Tobacco Cessation Education Requested by Patient: No Hx Alcohol Use: Yes Alcohol type: beer Alcohol Intake Frequency: 4 or More x per/Week Alcohol Intake Frequency Comment: 4 beers/day Hx Substance Use: Yes Non-Prescribed Medications: Marijuana Last Used Substance: Just Prior to Arrival Preferred Language: Uzbek Communication Ability: Effective Panel Raiser Operator Required: No Beliefs That Will Affect Care: None Current Living Situation: Alone Feels Safe at Home: Yes Safety Concerns: Feels Safe At This Time Assistive Devices: Cane, Glasses and Walker Physical Exam Physical Exam: On exam she has reasonable cervical range of motion. She is 4/5 grasp bilaterally. She has sensory to light touch and cold bilateral extremities. There is negative Newton sign. Lower extremity exam reveals good strength testing 5/5 plantarflexion dorsiflexion quadriceps. She is able to sit up in bed without difficulty. There is no pain to palpation or percussion of the lumbar musculature or midline regions. There is no abnormal skin markings. Results & Data Vital Signs (Past 12 Hours) Vital Signs Temp Pulse Resp BP Pulse Ox O2 Del Method 06/05/24 09:33 Room Air 06/05/24 07:10 36.6 C 78 12 176/88 H 95 Room Air 06/05/24 02:48 36.4 C L 69 14 162/72 H 96 Room Air 06/04/24 23:57 36.6 C 64 16 150/67 H 94 Room Air
[2024-06-05] MEDS: amLODIPine BESYLATE 5 MG TAB PO ONE (15:44)
[2024-06-05] MEDS: ALBUTEROL HFA 8 GM INHALER INH PRN (15:49)
[2024-06-05] MEDS: hydrOXYzine HCl 25 MG TAB PO PRN (20:50)
[2024-06-05] MEDS: oxyCODONE HCL IR 5 MG TAB (IMMEDIATE RELEASE) PO PRN (20:50)
[2024-06-05] MEDS ORDERED: Nursing to Pharmacy Communication SCH (22:00)
[2024-06-06 07:47] LABS: Hematocrit (blood only) 36.2 % (37.0-47.0); Mean Corpuscular Hemoglobin 30.3 pg (25.0-34.0); Mean Corpuscular Hgb Conc 33.1 g/dL (32.0-36.0); Mean Corpuscular Volume 91.4 fL (80.0-100.0); Platelet Count 380 K/uL (130-400); RDW Coefficient of Variation 14.1 % (11.5-14.5); RDW Standard Deviation 47.8 fL (36.4-46.3); Red Blood Count 3.96 M/uL (4.20-5.40); White Blood Count 6.88 K/ul (4.8-10.8)
[2024-06-06] MEDS: amLODIPine BESYLATE 5 MG TAB PO SCH (08:06)
[2024-06-06 08:08] LABS: Calcium 8.9 mg/dl (8.6-10.3); Creatinine Clr Calc Pharmacy 68.8 ml/min; Est GFR (African American) 108.1 ml/min; Est GFR (Non-African American) 93.3 ml/min; Potassium 4.1 mmol/L (3.5-5.1)
[2024-06-06] MEDS ORDERED: MoRPHine SULFATE 2 MG/ML CARP IV PRN (11:16)
[2024-06-06] MEDS ORDERED: CYCLOBENZAPRINE HCL 5 MG TAB PO PRN (11:18)
[2024-06-06] MEDS ORDERED: oxyCODONE HCL IR 5 MG TAB (IMMEDIATE RELEASE) PO PRN (11:19)
--- NOTE | 2024-06-06 11:32 | Hospitalist Progress Note ---
Date of Service June 06, 2024 Assessment & Plan (1) Acute urinary retention: (2) Acute back pain: (3) Lumbar spinal stenosis: (4) Tobacco use disorder: (5) Depression: (6) Hyperlipidemia: (7) COPD (chronic obstructive pulmonary disease): Plan 68-year-old female who has significant past medical history of COPD, HTN, HLD, tobacco abuse, alcohol abuse, cervical spinal stenosis from C3-C7, depression with anxiety who presents to ED secondary to inability to urinate and acute back pain. Acute urinary retention Acute low back pain --MRI Lumbar spine: Multilevel degenerative changes with up to severe right and moderate left neuroforaminal stenosis. Urology evaluation noted RN to remove dean today and do voiding trial Ortho spine surg eval noted. No surgical intervention recommended Patient has appt scheduled with Ortho Spine Dr Sykes in Sep. Nurse coordinator Ang contacted them for earlier appt. Unfortunately Nov is the earliest appt but they placed her on the fast track waitlist. Optimize pain control Start flexeril Pain management consulted COPD No acute exac Continue inhalers Tobacco abuse Counseled regarding smoking cessation Continue nicotine patch Depression Chronic, stable - continue prozac HLD Chronic, stable- continue statin Alcohol abuse Drinks 4-6 beers daily No prior hx of DT or withdrawals AWSS protocol, she is already on scheduled gabapentin Counseled regarding alcohol use Chronic Marijuana use DVT ppx: SCDS FULL CODE PCP: Fazal Potts spent a total of 50 minutes coordinating, documenting and providing care for this patient excluding time spent in performance of separately billed services Admission and Anticipated Discharge Date Admission Date: June 04, 2024 Subjective Patient seen and examined Reporting significant low back pain with minimal improvement Reports chronic paresthesia in UE due to cervical stenosis Denied other complaints Physical Exam Constitutional: + well hydrated and + thin; no acute dis tress Eyes: PERRL, conjunctivae normal, anicteric sclerae ENMT: external ear and nose normal, oropharynx normal Respiratory: normal respiratory effort, lungs clear to auscultation Cardiovascular: Rate/Rhythm: regular rate and regular rhythm S1 S2 Gastrointestinal (Abdomen): normal bowel sounds, soft, nontender, no hepatosplenomegaly Musculoskeletal: no cyanosis or clubbing, extremities motor strength 5/5 Tenderness over lower back paraspinal muscles Neurologic: PERRL, EOMI, accommodation nl, no face palsy, no dysarthria Psychiatric: A+Ox3, euthymic affect Results & Data Results & Data Vital Signs (Past 12 Hours) Vital Signs Temp Pulse Pulse Resp BP BP Pulse Ox 06/06/24 08:00 06/06/24 07:00 36.9 C 63 18 92/60 L 93 06/06/24 03:59 36.8 C 69 16 126/65 96 06/06/24 00:00 36.8 C 71 18 138/70 94 O2 Del Method 06/06/24 08:00 Room Air 06/06/24 07:00 Room Air 06/06/24 03:59 Room Air 06/06/24 00:00 Room Air Laboratory Results Abnormal lab results 06/06/24 Range/Units 07:04 RBC 3.96 L (4.20-5.40) M/uL Hct 36.2 L (37.0-47.0) % RDW Std Deviation 47.8 H (36.4-46.3) fL MPV 9.0 L (9.4-12.4) fL BUN/Creatinine Ratio 21.0 H (10-20)
[2024-06-06] MEDS: CYCLOBENZAPRINE HCL 5 MG TAB PO SCH (12:00)
[2024-06-06] MEDS ORDERED: BUPIVACAINE 0.5 % 5 MG/1 ML PF 10ML VIAL ONE (12:32)
[2024-06-06] MEDS ORDERED: TRIAMCINOLONE ACET 40 MG/ML VIAL ONE (12:32)
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
[2024-06-06] MEDS: hydrOXYzine HCl 25 MG TAB PO PRN (14:20)
[2024-06-06] MEDS: oxyCODONE HCL IR 5 MG TAB (IMMEDIATE RELEASE) PO PRN (15:57)
[2024-06-07] MEDS: KETOROLAC TROMETHAMINE 15 MG/ML VIAL IV SCH (09:15)
--- NOTE | 2024-06-07 09:25 | Pain Management Progress Note ---
Date of Service June 07, 2024 Assessment & Plan (1) Lumbar spinal stenosis: (2) Myofascial pain: (3) Alcohol abuse: (4) Anxiety: (5) Depression: (6) Facet arthropathy, lumbosacral: Plan 1. As patient has not yet felt any improvement with yesterday's trigger point injections, she is educated to give them a bit more time, at least another 24 to 48 hours to take effect. 2. Continue other medications as current. 3. May potentially consider lumbar medial branch blocks to address underlying facet arthropathy in the future but this will be determined as an outpatient. * She is educated to contact our office if she would like to seek further procedural-based treatment at the pain clinic. Pain management service will sign off at this time. Admission and Anticipated Discharge Date Admission Date: June 04, 2024 Subjective Patient says that she has not noticed any particular relief or benefit with yesterday's trigger point injections. However, when first entering the room, she was saying today, "where are my papers so I can get out of here". I explained that I was there to follow-up on yesterday's injections, and she seemed a bit irritated that the "doctors here say they can't do anything else for me, so just get me out of here". She did localize continued pain to her left lumbar and lumbosacral paraspinal regions. She did not realize at first that she may need to give the injections a couple more days until they have some effect. Case discussed with Dr. Ernestine Garcia. Pain Assessment Pain Assessment Full Body Front + Back: 2 1. Physical Exam 2 Physical Exam: GENERAL: Speech and cognition is intact. Mood and affect is irritable. Does not appear in acute distress. Able to transfer from sitting on edge of bed to standing with no apparent difficulty. HEAD: Normocephalic; atraumatic. BACK: Diminished ROM. + TTP left lumbar and lumbosacral paraspinals, quadratus lumborum.Inspection/palpation demonstrates loss of lumbar lordotic curvature. SKIN: No lesions, erythema, or rashes noted.
--- NOTE | 2024-06-07 10:57 | Hospitalist Progress Note ---
Date of Service June 07, 2024 Assessment & Plan (1) Acute urinary retention: (2) Acute back pain: (3) Lumbar spinal stenosis: (4) Tobacco use disorder: (5) Depression: (6) Hyperlipidemia: (7) COPD (chronic obstructive pulmonary disease): Plan 68-year-old female who has significant past medical history of COPD, HTN, HLD, tobacco abuse, alcohol abuse, cervical spinal stenosis from C3-C7, depression with anxiety who presents to ED secondary to inability to urinate and acute back pain. Acute urinary retention Acute low back pain --MRI Lumbar spine: Multilevel degenerative changes with up to severe right and moderate left neuroforaminal stenosis. Urology evaluation noted Dean removed Voiding well since dean removal Ortho spine surg eval noted. No surgical intervention recommended Patient has appt scheduled with Ortho Spine Dr Sykes in Sep. Nurse coordinator Ang contacted them for earlier appt. Unfortunately Nov is the earliest appt but they placed her on the fast track waitlist. Pain mgt gave trigger point injection yesterday. Patient reports no improvement Continue scheduled tylenol, prn oxycodone, flexeril Trial of ketorolac Get PT/OT eval COPD No acute exac Continue inhalers Tobacco abuse Counseled regarding smoking cessation Continue nicotine patch Depression Chronic, stable - continue prozac HLD Chronic, stable- continue statin Alcohol abuse Drinks 4-6 beers daily No prior hx of DT or withdrawals AWSS protocol, she is already on scheduled gabapentin Counseled regarding alcohol use Chronic Marijuana use DVT ppx: SCDS FULL CODE PCP: Fazal Potts spent a total of 50 minutes coordinating, documenting and providing care for this patient excluding time spent in performance of separately billed services Admission and Anticipated Discharge Date Admission Date: June 04, 2024 Subjective Patient seen and examined She reports no improvement in her back pain Reports severe pain especially left lower back. Not referred. Reports she is unsteady on her feet Denied other complaints Physical Exam Constitutional: + well hydrated and + thin; no acute dis tress Eyes: PERRL, conjunctivae normal, anicteric sclerae ENMT: external ear and nose normal, oropharynx normal Respiratory: normal respiratory effort, lungs clear to auscultation Cardiovascular: Rate/Rhythm: regular rate and regular rhythm Gastrointestinal (Abdomen): normal bowel sounds, soft, nontender, no hepatosplenomegaly Musculoskeletal: Tenderness over lower back paraspinal muscles Neurologic: PERRL, EOMI, accommodation nl, no face palsy, no dysarthria Psychiatric: A+Ox3, euthymic affect Results & Data Results & Data Vital Signs (Past 12 Hours) Vital Signs Temp Pulse Resp BP Pulse Ox O2 Del Method 06/07/24 03:58 36.7 C 74 18 106/63 94 Room Air 06/07/24 00:00 36.7 C 72 18 132/70 95 Room Air Laboratory Results Abnormal lab results 06/07/24 Range/Units 12:55 WBC 15.92 H (4.8-10.8) K/ul RDW Std Deviation 47.7 H (36.4-46.3) fL Plt Count 428 H (130-400) K/uL MPV 8.9 L (9.4-12.4) fL Sodium 134 L (136-145) mmol/L BUN/Creatinine Ratio 26.0 H (10-20) Glucose 195 H (70-99(Fasting)) mg/dl
[2024-06-07 13:14] LABS: Hematocrit (blood only) 38.6 % (37.0-47.0); Hemoglobin 12.7 g/dl (12.0-16.0); Mean Corpuscular Hemoglobin 30.2 pg (25.0-34.0); Mean Corpuscular Hgb Conc 32.9 g/dL (32.0-36.0); Mean Corpuscular Volume 91.7 fL (80.0-100.0); Mean Platelet Volume 8.9 fL (9.4-12.4); Platelet Count 428 K/uL (130-400); RDW Coefficient of Variation 14.2 % (11.5-14.5); RDW Standard Deviation 47.7 fL (36.4-46.3); Red Blood Count 4.21 M/uL (4.20-5.40); White Blood Count 15.92 K/ul (4.8-10.8)
[2024-06-07 13:34] LABS: Calcium 9.6 mg/dl (8.6-10.3); Creatinine Clr Calc Pharmacy 58.4 ml/min; Est GFR (African American) 98.8 ml/min; Est GFR (Non-African American) 85.2 ml/min; Magnesium 2.1 mg/dl (1.7-2.4); Phosphorus 3.7 mg/dl (2.5-4.9); Potassium 3.9 mmol/L (3.5-5.1)
[2024-06-08 03:11] VITALS: O2SAT 95
[2024-06-08 07:52] VITALS: RESP 18
[2024-06-08] MEDS: SENNA 8.6 MG TAB PO ONE (10:53)
--- NOTE | 2024-06-08 11:40 | Discharge Summary ---
Date of Service June 08, 2024 Admission HPI Per Admitting Provider This is a 68-year-old female who has significant past medical history of COPD, HTN, HLD, tobacco abuse, alcohol abuse, cervical spinal stenosis from C3-C7, depression with anxiety who presents to ED secondary to inability to urinate and acute back pain. She states that 3 days ago whenever she got up from her couch she developed acute low back pain. Pain was made worse with movement and improved with rest. She tried a pain relief patch as well as ibuprofen and Tylenol without improvement. She continues to have the pain today and noticed around noon she felt like she had to urinate, but was unable to. She had significant lower abdominal pain due to the feeling of needing to urinate. She denies similar symptoms in the past. She reports known history of cervical spinal stenosis due to prior accident several years ago. She recently had an MRI that showed stenosis from C3-C7 and she has chronic numbness specifically to her right upper extremity. She denies any radicular symptoms to her lower extremities including pain, numbness or tingling. She denies any saddle anesthesia. She is moving bowels regularly and her last bowel movement was today. in ED patient was hypertensive. Due to her inability to urinate a Dean catheter was placed and 900 cc of urine was evacuated. She underwent a CT abdomen pelvis which was was without acute abnormality. Her CBC and CMP was generally unremarkable except hemoglobin revealed 11.6 and 34.9, BUN and creatinine were normal and urinalysis was negative. Lumbar spine MRI revealed multilevel disc disease with disc protusion and moderate to severe stenosis. Patient's outpatient records were reviewed in [facility]. Her brother was at bedside who also help elicit history. Admission Exam Per Admitting Provider Per Admitting physician: On examination Lying in bed without any apparent distress Hemodynamically stable with blood pressure on the upper side Chest-clear to auscultate bilaterally Heart-S1-S2, regular Abdomen-mildly distended and tender. Left renal angle is slightly distended and painful on palpation Extremities-negative for any edema ADMINISTRATION INTERN-alert, awake and oriented x 3. No focal sensory or motor deficit appreciated. Principal Diagnosis Acute Back pain Urinary Retention Discharge Exam General: awake, alert, no apparent distress, seen ambulating about the room with walker without difficulty, thin, white, female Head: Normocephalic, atraumatic ENT: PERRL, EOMI, no pharyngeal exudate, + edentulous, mucous membranes moist Chest: Clear to auscultation, on room air, no adventitious breath sounds Cardiac: Regular rate and rhythm, no murmur, no JVD, normal peripheral pulses, good capillary refill Abdominal: NABS x 4 quadrants, soft, nondistended, nontender to palpation, no rebound or guarding Extremities: Normal inspection, no peripheral edema or erythema, calfs nontender to palpation Psych: Normal mood and affect Neuro: AAO x 3, strength intact bilaterally and rated 5/5, no motor deficits, speech is clear, no peripheral sensory deficits Discharge Data Allergies Allergy/AdvReac Type Severity Reaction Status Date / Time No Known Allergies Allergy Verified 05/24/24 16:51 Consultations 06/04/24 17:59 ED Decision to Admit Stat 06/04/24 18:44 Consult Orthopedic Surgery Routine 06/04/24 19:11 Consult Urology Routine 06/06/24 11:16 Consult Pain Management Routine Procedures Performed [place], [place] [phone] Ultrasound Report Patient: SHARON LEWIS Admit Date: 06/04/24 MR#: [id number] Address[address]: [address] [facility] [address] Acct ID:[id number] Address2: Date: [address] [facility] Zip: [place] [address] Age: 68 Location: 3W Sex: F Room/Bed: [address] Phy: Felecia Jiménez MD Diagnosis: ACUTE BACK PAIN, URINARY RETENTION Kimberley Phy: Gray Diehl MD Service Date: 06/04/24 Fam Phy: Interpreting Phy: Jacki Pringle MDAdmit Phy: Felecia Jiménez MD Ordering Phy: Renata Mendez PA-C cc: ~ Exam(s): US RENAL EXAM: US Retroperitoneal Complete, Renal CLINICAL HISTORY: Pain. TECHNIQUE: Real-time complete ultrasound of the retroperitoneum with image documentation. COMPARISON: No relevant prior studies available. FINDINGS: Right kidney: Question a lesion of the interpolar right kidney. The right kidney measures 9.4 cm. No stones. No hydronephrosis. Left kidney: Left kidney measures 9.0 cm. No stones. No hydronephrosis. Bladder: Unremarkable as visualized. IMPRESSION: Question a lesion of the interpolar right kidney. Recommend further evaluation with renal mass protocol CT or MRI. Electronically signed by: Jacki Pringle MD 06/05/24 01:54 AM MR lumbar spine wo con CLINICAL HISTORY: lumbar pain, inability to urinate TECHNIQUE: Multiplanar sequences through the lumbar spine were obtained, without intravenous contrast. Comparison: Comparison is made to CT abdomen pelvis 06/04/2024 FINDINGS: The alignment is anatomical. L1-L2: No significant abnormality. L2-L3: No significant abnormality. L3-L4: Broad-based posterior disc bulge is seen with severe right and moderate left neural foraminal stenosis. L4-L5: Broad-based posterior disc bulge is seen with severe right and moderate left neural foraminal stenosis. L5-S1: Facet arthropathy is seen with moderate bilateral neural foraminal stenosis. The spinal ligaments are intact, without evidence of disruption or abnormal signal intensity. The spinal cord is normal in signal intensity and there is no evidence of cord contusion. There is no evidence of an extradural, intradural, extramedullary or intramedullary lesion. Visualized soft tissues are normal. IMPRESSION: Multilevel degenerative changes with up to severe right and moderate left neuroforaminal stenosis. ACT 112: Negative or not required by law. Electronically signed by: Cole Scott M.D. 06/04/2024 6:[address] abd pelvis IV con only CLINICAL HISTORY: Renal colic, herniated disk TECHNIQUE: Helical axial images of the abdomen and pelvis were obtained and displayed. Automated dose lowering techniques and/or adjustment according to patient size were utilized for this exam. This exam was performed with intravenous contrast. CT DOSE: 327.81 mGy.cm COMPARISON: Comparison is made to CT abdomen pelvis 05/24/2024 FINDINGS: Lower chest: No acute abnormality. Liver: Unremarkable. No focal lesions are seen. Gallbladder and biliary tree: No calcified gallstones. Normal caliber wall. No intra- or extrahepatic biliary ductal dilation. Pancreas: Unremarkable, no focal lesions. Spleen: Unremarkable. Adrenals: Unremarkable. Kidneys and ureters: Subcentimeter hypodensities are too small to characterize. Bladder: Limited evaluation due to underdistention. Reproductive organs: Unremarkable. Bowel: Diverticulosis is seen without diverticulitis. The appendix is normal. Lymph nodes Retroperitoneal: Unremarkable. Pelvic: Unremarkable. Mesenteric: Unremarkable. Peritoneum: Normal. Vessels: Atherosclerotic calcifications are seen. Infrarenal aortic aneurysm measures 27 mm. Abdominal wall: Unremarkable. Bones: Degenerative changes in the visualized spine. Multilevel compression deformities are seen. These are grossly unchanged from prior exam. IMPRESSION: 1. No acute abnormality and in particular no evidence of obstructive stones. 2. Diverticulosis without diverticulitis. 3. Additional findings as above. ACT 112: Negative or not required by law. Electronically signed by: Cole Scott M.D. 06/04/2024 5:15 PM Ordered Studies 06/04/24 14:25 CT abd pelvis IV con only Stat 06/04/24 17:31 MRI Lumbar Spine [MR lumbar spine wo con] Stat 06/04/24 18:56 US Renal Bladder [US renal/blad retro comp] Stat Hospital Course (1) Acute urinary retention: (2) Acute back pain: (3) Lumbar spinal stenosis: (4) Tobacco use disorder: (5) Depression: (6) Hyperlipidemia: (7) COPD (chronic obstructive pulmonary disease): Plan 68-year-old female who has significant past medical history of COPD, HTN, HLD, tobacco abuse, alcohol abuse, cervical spinal stenosis from C3-C7, depression with anxiety who presents to ED secondary to inability to urinate and acute back pain. Acute urinary retention Acute low back pain --MRI Lumbar spine: Multilevel degenerative changes with up to severe right and moderate left neuroforaminal stenosis. Urology evaluation noted Dean removed Voiding well since dean removal on 06/07 Ortho spine surg eval noted. No surgical intervention recommended Patient has appt scheduled with Ortho Spine Dr Sykes in Sep. Nurse coordinator Ang contacted them for earlier appt. Unfortunately Nov is the earliest appt but they placed her on the fast track waitlist. Pain mgt gave trigger point injection yesterday. Patient reports no improvement Continue scheduled tylenol, prn oxycodone, flexeril Trial of ketorolac Get PT/OT eval Pt ambulating with walker, has rollator walker at home. Lives in apartment with neighbors and pull cords to call for help built in the apartment. COPD No acute exac Continue inhalers Tobacco abuse Counseled regarding smoking cessation Continue nicotine patch Depression Chronic, stable - continue prozac HLD Chronic, stable- continue statin Alcohol abuse Drinks 4-6 beers daily No prior hx of DT or withdrawals AWSS protocol, she is already on scheduled gabapentin Counseled regarding alcohol use Chronic Marijuana use DVT ppx: SCDS FULL CODE PCP: Fazal A total of 35minutes were spent with greater than 50% of that time face to face with the patient, personally reviewing all current laboratories, imaging studies, past medication reconciliation, outpatient chart review, and discussion with specialists to collaborate care for the patient with attending. Please see attending documentation for corrections and/or additions. Total Time Total Time Spent Total Time Spent (In Minutes): 35 Discharge Plan Discharge Items Patient Disposition: Home - Self-Care Reason For Visit: ACUTE BACK PAIN, URINARY RETENTION Discharge Diagnosis: Acute low back pain, urinary retention Condition on Discharge: Good Activity: Resume your previous activity Activity Comment: As tolerated Lifting: Gradually increase as tolerated Bathing: No limitations Exercise/Sports: Gradually increase as tolerated Weightbearing: Full weightbearing Non-emergency contact: Primary Care Provider and Pain Management Call non-emergency contact if: you have any medication questions, your symptoms worsen, your pain is not controlled, your pain is worsening and your rectal temperature is above 100.4 Follow-up/Referrals: Gray Diehl MD [Primary Care Provider] - 06/14/24 10:20 am (Date & Time 06/14/2024 10:20 AM Provider Gray Diehl MD Department [facility] ) Everett Sykes MD [Outside Practitioners] - 10/07/24 8:00 am (Date & Time 10/07/2024 8:00 AM Provider Everett Sykes MD [facility] Diet: Heart Healthy Diet Texture: Easy to Chew Addtl Attending Provider Instructions: You were admitted to [facility] due to lower back pain and urinary retention and diagnosed with lumbar radiculopathy. During your stay here you were treated with supportive care, medications and trigger point injection by pain management and your symptoms improved. You were evaluated by urology and required dean catheter was placed, and voiding trial was passed prior to your discharge home. Imaging studies which were completed include 1. CT abdomen and pelvis which was normal. 2. MRI fo the lumbar spine: L3-L4, L4-L5 disc bulge with severe right and moderate left neural foraminal stenosis. 3. Renal ultrasound: Right kidney: Question a lesion of the interpolar right kidney. The right kidney measures 9.4 cm. No stones. No hydronephrosis. Left kidney: Left kidney measures 9.0 cm. No stones. No hydronephrosis. Medications: Continue taking your medications as prescribed: Oxycodone 5 mg may be used twice per day for severe pain as needed. A short supply has been sent to pharmacy. Please call PCP for refill if needed. A muscle relaxer, flexeril has been sent for pain relief as well. You can seed cone picker 4% lidocaine patch over the counter for pain relief and apply it to the lower back. Continue bowel regimen with miralax, dulcolax daily for promoting a bowel movement. You wont need to use a bowel regimen when you are not taking oxycodone. Appointments: Follow up with PCP within 1-2 weeks. Please discuss kidney imaging results with PCP for setting up test [ renal mass protocol CT or MRI] and have follow up as needed. Pain management within [address] Onel Gutierrez in Sep 2024. Pending Studies at Discharge: No Stand-Alone Forms: My [facility] [employer], Smoking Cessation Medications and DC Order Prescriptions: New nicotine 7 mg/24 hr Patch 24 Hour 1 patch transdermal QAM 14 Days Qty: 14 0RF cyclobenzaprine 5 mg Tablet 5 mg PO BID 7 Days Qty: 14 0RF amlodipine [Norvasc] 5 mg Tablet 5 mg PO QAM 30 Days Qty: 30 0RF oxycodone 5 mg Tablet 5 mg PO BID PRN (Reason: severe pain (scale score 7-10)) 5 Days Qty: 10 0RF thiamine HCl (vitamin B1) 100 mg Tablet 100 mg PO QAM Qty: 30 0RF folic acid 1 mg Tablet 1 mg PO QAM 30 Days Qty: 30 0RF docusate sodium 100 mg Capsule 100 mg PO BID Qty: 10 0RF polyethylene glycol 3350 [Miralax] 17 gram Powder In Packet 17 g PO DAILY PRN (Reason: constipation) 30 Days Qty: 30 0RF Continued fluoxetine [Prozac] 40 mg Capsule 40 mg PO QAM Rx Instructions: TOTAL DOSE 60 MG--TAKES WITH 20 MG CAP. albuterol sulfate 90 mcg/actuation HFA aerosol inhaler 2 puff INHALATION Q4 PRN (Reason: Wheezing) hydroxyzine HCl 25 mg tablet 25 mg PO Q6 PRN (Reason: anxiety) fluticasone propion-salmeterol 250-50 mcg/dose blister with device 1 ea INHALATION BID atorvastatin 20 mg tablet 20 mg PO QPM gabapentin 400 mg capsule 400 mg PO TID Rx Instructions: ON EXT MED HX--FILLED 04/21/24 FOR 100 DAY/300 CAPS. NOT ON [facility] MED LIST. bupropion HCl 100 mg tablet sustained-release 12 hr 100 mg PO QAM fluoxetine 20 mg capsule 20 mg PO QAM Rx Instructions: TOTAL DOSE 60 MG--TAKES WITH 40 MG CAP. meclizine 25 mg tablet 12.5 - 25 mg PO TID PRN (Reason: Dizziness) diclofenac sodium 1 % gel 2 g TOPICAL Q6 PRN (Reason: JOINT PAIN) Rx Instructions: LEFT ANKLE PAIN albuterol sulfate 2.5 mg /3 mL (0.083 %) Solution For Nebulization 2.5 mg INHALATION Q6H PRN (Reason: Wheezing) fexofenadine 180 mg Tablet 180 mg PO DAILY PRN (Reason: ALLERGY SYMPTOMS/ITCHING) Discharge Orders: Discharge Order (Routine); Ordered 06/08/24 Ordered By: Oly Calvert Admission Data Admit Date/Time: 06/04/24 18:44 Attending Provider: Christin Goldsmith Admit Provider: Felecia Jiménez Primary Care Provider: Gray Diehl Other Providers: Jayro Mac; Apollo Alexis; Felecia Jiménez; Ed Jesus Other Interventions: Discharge Summary Assessment (RN) Last Done: 06/08/24 14:22 Supervising Physician Co-Signing Physician Notes Patient was seen and examined at bedside as a follow-up of acute urinary retention and acute low back pain. Patient reports improvement in her low back pain, patient does not have any trouble passing urine. Otherwise patient feels better and back to her baseline and would like to go home. On examination, patient on room air, heart/lung/abdominal examination fairly WNL. Rest of the examination as above. I have seen and examined the patient and have discussed the case with the provider above. I agree with the assessment and plan as stated.
[2024-06-08 12:06] VITALS: BP 100/68; PULSE 58; TEMP 97.9
== END 2024-06-08 15:41 | disposition home or self-care (01) | DRG 552 ==
LOC: ED 13:29 → 3W 18:44 → SUATTDRO 18:44 → 3W 21:24

== ENCOUNTER 2025-09-14 01:58 | Inpatient (IN) ==
--- NOTE | 2025-09-14 02:17 | Emergency Department Note ---
Impression & Plan Acute hyponatremia Admission ED Provider Note HPI: History obtained from patient. The patient is a 69-year-old female who presents the emergency department after ground-level fall. Patient states she was cleaning her kitchen when she walked back into the kitchen from the living room and she lost her balance and fell. Patient does admit to smoking medical marijuana today as well as drinking alcohol. Patient states that she fell onto her right shoulder where she now has some acute pain. Patient states she does not believe she hit her head. On arrival here to the ED the patient is alert, she has mild hypotension at 86/60 but otherwise appears to be in no acute distress. Patient is saturating well on room air on arrival. Cervical spine was cleared clinically at 2:15 AM, patient has full range of motion of the cervical spine without limitation or pain ROS: - Per HPI Differential Diagnosis: Right shoulder fracture, shoulder dislocation, soft tissue injury within the right shoulder, rib fractures, pneumothorax, hemothorax, intracranial injury to include subdural hematoma, ambulatory dysfunction secondary to alcohol intoxication, amongst other potential pathologies. *Outpatient medications and allergy history reviewed. Primary Survey: Airway-intact, patient speaks in full sentences Respiratory-clear bilateral breath sounds Circulation-2+ DP pulses bilaterally, 2+ radial pulses bilaterally Neurologic-patient is alert Exposure-no evidence of any open wounds or lacerations Secondary survey: General: Alert, frail-appearing, no acute distress HEENT: Normocephalic, trachea midline, full range of motion of the cervical spine is appreciated without limitation or pain Eyes: Extraocular eye movement is intact, no scleral erythema Pulmonary: Clear to auscultation bilaterally, no wheezing Cardio: Regular rate and rhythm GI: Abdomen is soft to palpation : No suprapubic tenderness MSK: No evidence of trauma or malformation of the extremities, no edema Skin: No evidence of rash Neuro: Alert, no focal deficits Psychiatric: Cooperative INDEPENDENT INTERPRETATIONS: type copyist: (As interpreted by myself): - An order was placed for continuous cardiac monitoring - Patient was noted to be in sinus rhythm with a rate of 90 Chest x-ray: (As interpreted by myself): No acute disease Interventions provided in ED: - IV fluid bolus, IV morphine Medical Decision Making: IV was established and lab work obtained, 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 Patient was given IV fluids for mild presenting hypotension. Lab work shows a mild leukocytosis at 13.5, hemoglobin is normal, platelet count is slightly elevated at 454, CMP shows hyponatremia at 126 which appears to be fairly new for the patient, otherwise no critical findings are noted. CT imaging of the head does not show any evidence of any acute intracranial process. X-ray imaging of the right shoulder shows a high riding humeral head but no evidence of acute fracture. Chest x-ray does not show any evidence of acute disease per my interpretation. X-ray imaging of the pelvis does not show any evidence of acute fracture. Patient later complained of some left ankle pain, no obvious deformity is noted, x-ray imaging of the left ankle was added to the patient's workup. Given the patient's fall in addition to her new hyponatremia, I feel that she should be admitted for further workup. Patient was in agreement to this plan. Case was discussed with the on-call hospitalist, Dr. Hayes, and the patient was placed for admission in stable condition. Consultants/Discussions held with other healthcare providers: - Hospitalist, Dr. Hayes Disposition discussion held by myself with: - Patient Diagnosis: 1. Mechanical fall, acute 2. Right shoulder pain, acute, status post fall 3. Hyponatremia, acute Disposition: Admission Gray Zavala DO Emergency Medicine Past Med/Surg History Problem List (Updated 09/14/25 @ 04:09 by Gray Zavala DO) Acute hyponatremia (Acute) Facet arthropathy, lumbosacral Myofascial pain Arthritis of left ankle Respiratory distress (Acute) COPD exacerbation (Acute) Tachypnea (Acute) Leukocytosis (Acute) Hypokalemia (Acute) Pneumonia DVT prophylaxis COPD exacerbation Anxiety Tobacco use disorder Depression Hyperlipidemia Medical History Anxiety Personal history of alcoholism COPD (chronic obstructive pulmonary disease) Surgical History No pertinent past surgical history Family History Mother CHF (congestive heart failure) Father Prostate cancer Aunt Breast cancer Social History Smoking Status: Current every day smoker Tobacco Type: Cigarettes Second Hand Exposure: No; Do You Dip or Chew Tobacco: No; Hx Alcohol Use: Yes Alcohol type: beer Alcohol Intake Frequency: 4 or More x per/Week Alcohol Intake Frequency Comment: 4 beers/day Hx Substance Use: Yes Non-Prescribed Medications: Marijuana Last Used Substance: Just Prior to Arrival Preferred Language: Slovak Communication Ability: Effective Office Admin Required: No Beliefs That Will Affect Care: None Current Living Situation: Alone Feels Safe at Home: Yes Assistive Devices: Walker Allergies Allergies Allergy/AdvReac Type Severity Reaction Status Date / Time No Known Allergies Allergy Verified 05/24/24 16:51 Home Meds Home Medications Medication Instructions Recorded Confirmed fluoxetine 40 mg capsule (Prozac) 40 mg PO QAM 06/12/20 06/04/24 albuterol sulfate 90 mcg/actuation 2 puff inhalation Q4 PRN Wheezing 07/12/20 06/04/24 aerosol inhaler hydroxyzine HCl 25 mg tablet 25 mg PO Q6 PRN anxiety 07/13/20 06/04/24 bupropion HCl 100 mg tablet,12 hr 100 mg PO QAM 05/05/21 06/04/24 sustained-release gabapentin 400 mg capsule 400 mg PO TID 05/05/21 06/04/24 atorvastatin 20 mg tablet 20 mg PO QPM 10/16/22 06/04/24 fluticasone 250 mcg-salmeterol 50 1 ea inhalation BID 10/16/22 06/04/24 mcg/dose blistr powdr for inhalation diclofenac sodium 1 % topical gel 2 g topical Q6 PRN JOINT PAIN 10/09/23 06/04/24 fluoxetine 20 mg capsule 20 mg PO QAM 10/09/23 06/04/24 meclizine 25 mg tablet 12.5 - 25 mg PO TID PRN Dizziness 10/09/23 06/04/24 albuterol sulfate 2.5 mg/3 mL 2.5 mg inhalation Q6H PRN Wheezing 05/24/24 06/04/24 (0.083 %) solution for nebulization fexofenadine 180 mg tablet 180 mg PO DAILY PRN ALLERGY 05/24/24 06/04/24 SYMPTOMS/ITCHING Previous Rx's Medication Instructions Recorded docusate sodium 100 mg capsule 100 mg PO BID #10 caps 06/08/24 thiamine HCl (vitamin B1) 100 mg 100 mg PO QAM #30 tabs 06/08/24 tablet Results & Data (ED) Vital Signs Vital Signs - 24 hr 09/14/25 02:04 09/14/25 02:10 09/14/25 02:22 Pulse Rate 90 85 Pulse Rate [Apical] Respiratory Rate 16 Blood Pressure 86/60 L Blood Pressure [Left Arm] Blood Pressure Mean 68 Blood Pressure Mean [Left Arm] Pulse Oximetry 96 96 Oxygen Delivery Method Room Air Room Air Sepsis Recent Fever Within 48 Hours No Sepsis New/Unexplained Change in Mental Status No Sepsis Action Taken by Nursing No Action Required 09/14/25 02:42 09/14/25 03:00 09/14/25 04:00 Pulse Rate Pulse Rate [Apical] 83 82 89 Respiratory Rate 22 23 23 Blood Pressure Blood Pressure [Left Arm] 98/76 L 100/69 92/71 L Blood Pressure Mean Blood Pressure Mean [Left Arm] 83 79 78 Pulse Oximetry 96 93 93 Oxygen Delivery Method Room Air Room Air Room Air Sepsis Recent Fever Within 48 Hours Sepsis New/Unexplained Change in Mental Status Sepsis Action Taken by Nursing Laboratory Data 09/14/25 02:12 09/14/25 02:12 Lab Results 09/14/25 09/14/25 Range/Units 02:12 02:26 WBC 13.57 H (4.8-10.8) K/ul RBC 3.78 L (4.20-5.40) M/uL Hgb 12.1 (12.0-16.0) g/dl POC Hgb 12.6 (12.0-16.0) g/dl Hct 35.1 L (37.0-47.0) % POC Hct 37 (37-47) % MCV 92.9 (80.0-100.0) fL MCH 32.0 (25.0-34.0) pg MCHC 34.5 (32.0-36.0) g/dL RDW Std Deviation 44.3 (36.4-46.3) fL RDW Coeff of Reyes 13.0 (11.5-14.5) % Plt Count 454 H (130-400) K/uL MPV 9.0 L (9.4-12.4) fL Immature Gran % (Auto) 0.8 % Neut % (Auto) 71.2 % Lymph % (Auto) 21.6 % Hitchcock % (Auto) 4.6 % Eos % (Auto) 0.7 % Baso % (Auto) 1.1 % Neut # (Auto) 9.66 H (1.40-6.50) K/uL Lymph # (Auto) 2.93 (1.20-3.40) K/uL Hitchcock # (Auto) 0.63 H (0.11-0.59) K/uL Eos # (Auto) 0.09 (0.00-0.50) K/uL Baso # (Auto) 0.15 (0.00-0.20) K/uL Immature Gran # (Auto) 0.11 (0.01-0.20) K/uL PT 10.3 (9.0-12.0) Seconds INR 1.0 (0.9-1.1) APTT 27 (21-31) Seconds PTT Ratio 1.0 POC Sodium 126 L (135-144) mmol/L Sodium 126 L (136-145) mmol/L POC Potassium 4.4 (3.3-5.0) mmol/L Potassium 4.4 (3.5-5.1) mmol/L POC Chloride 93 L (101-112) mmol/L Chloride 93 L (98-107) mmol/L Carbon Dioxide 25 (21-32) mmol/L POC Total CO2 23 L (24-31) mmol/L Anion Gap 8 (3-11) POC Anion Gap 15.0 L (16-25) mmol/L POC BUN 10 (7-18) mg/dl BUN 12 (6-23) mg/dl Creatinine 0.58 L (0.6-1.2) mg/dl POC Creatinine 0.9 (0.6-1.3) mg/dl Est Cr Clr Drug Dosing 76.8 ml/min eGFR 98.51 BUN/Creatinine Ratio 20.7 H (10-20) Glucose 81 (70-99(Fasting)) mg/dl POC Glucose (other) 84 (70-99) mg/dl Calcium 9.0 (8.6-10.3) mg/dl POC Ioniz Calcium Celina 1.07 L (1.12-1.32) mmol/l Total Bilirubin 0.3 (0.2-1.0) mg/dl AST 24 (13-39) U/L ALT 21 (7-52) U/L Alkaline Phosphatase 166 H (34-104) U/L Total Protein 7.2 (6.0-8.3) gm/dl Albumin 4.2 (3.4-5.0) gm/dl Globulin 3.0 (2.5-4.0) gm/dl Albumin/Globulin Ratio 1.4 (0.9-2) Lipase 44 (11-82) U/L Administered Medications Discontinued Medications Sodium Chloride (Nss) 1,000 mls @ 999 mls/hr IV .Q1H1M ONE Stop: 09/14/25 03:15 Last Admin: 09/14/25 02:41 Dose: 999 mls/hr Documented By: abl Morphine Sulfate (Morphine Sulfate 2 Mg/Ml Carp) 2 mg IV NOW STA Stop: 09/14/25 02:58 Last Admin: 09/14/25 03:00 Dose: 2 mg Documented By: abl Imaging Data Radiologist's Impression: Chest X-Ray 09/14/25 02:14 EXAM: XR chest 1V portable CLINICAL HISTORY: Trauma TECHNIQUE: An X-ray image of the chest was obtained in AP projection. COMPARISON: Prior study from 10/16/2022. FINDINGS: Pulmonary Parenchyma: Hyperinflated lung ferguson are seen bilaterally. Clinical correlation is needed to assess for underlying chronic obstructive airway changes. The lungs are clear bilaterally. There is no evidence of consolidation, collapse, or focal opacities. No pulmonary nodules are identified. Prominent bronchovascular markings are seen bilaterally, likely age-related or nonspecific. There is no evidence of pleural effusion or pleural thickening. Heart and Mediastinum: The heart size and shape are normal. There is no mediastinal widening or masses. No hilar or mediastinal lymphadenopathy is seen. Bony Thorax: The bony thorax appears intact without acute fractures. A possible old fracture of the left clavicle is noted. Degenerative changes are seen in the cervical spine. Soft Tissues: The soft tissues overlying the chest wall are unremarkable. IMPRESSION: 1. No acute cardiopulmonary abnormalities are identified. 2. Hyperinflated lung ferguson are redemonstrated bilaterally. Clinical correlation is needed to assess for underlying chronic obstructive airway changes. Findings are interval stable. 3. No acute fracture is seen. 4. Old fracture of the left clavicle, interval stable. Electronically signed by Adrian Page 09-14-2025 03:30 AM Shoulder X-Ray 09/14/25 02:14 EXAM: XR shoulder RT min 2V routine CLINICAL HISTORY: Fall. TECHNIQUE: X-ray images of the right shoulder were obtained in anteroposterior (AP) and Y-view projections. COMPARISON: No prior studies are available for comparison. FINDINGS: Bone Structure: The bone structure is normal and aligned. There is no evidence of acute fracture. Slight superior migration of the head of humerus with respect to the glenoid and scapula suggested this could be due to mild soft tissue or ligamentous injury needs clinical correlation No osseous lesions or abnormalities are identified. Joint Spaces: Mild degenerative changes are seen in the right glenohumeral and acromioclavicular joints. Soft Tissues: No significant soft tissue swelling seen. Additional Findings: There are no signs of osteoarthritis, bone spurs, lytic, or sclerotic lesions. IMPRESSION: 1. No evidence of acute fracture. 2. Slight superior migration of the head of humerus with respect to the glenoid of scapula suggested, this could be due to mild soft tissue or ligamentous injury, needs Clinical correlation, and further evaluation by MRI may be obtained if clinically indicated. 3. Mild right glenohumeral and acromioclavicular joint osteoarthritis. Disclaimer: A subtle bone abnormality or fracture may not be readily apparent on X-rays, thus clinical correlation and further imaging including follow-up CT, MRI, or follow-up X-rays are advised as needed. Electronically signed by Adrian Page 09-14-2025 03:[address] 09/14/25 02:15 EXAM: CT head/brain wo con CLINICAL HISTORY: fall TECHNIQUE: Multiple axial images were obtained from the skull base to the vertex without contrast. A CT scan was performed according to ALARA (as low as reasonably achievable). 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 FINDINGS: No evidence of space-occupying lesion, hemorrhage, edema, mass effect, midline shift, extra-axial collection, or hydrocephalus is noted. The basal cisterns are symmetric and normal in size and configuration. There are scattered periventricular hypodensities, as can be seen with chronic microvascular ischemic changes. The alegria-white matter differentiation is preserved. Mild mucosal thickening is seen in the visualized paranasal sinuses. The mastoid air cells are well aerated. The orbital contents are within normal limits. The bony structures are intact. IMPRESSION: 1. No evidence of acute intracranial abnormality is demonstrated. 2. Chronic microvascular ischemic changes. 3. No significant interval change. Electronically signed by Sim Luu 09-14-2025 03:19 AM Hip/Pelvis X-Ray 09/14/25 02:15 EXAM: XR hips SUSY 1v w pelvis CLINICAL HISTORY: Fall TECHNIQUE: X-ray images of the pelvis and both hip joints were obtained in the anteroposterior (AP) projection. COMPARISON: No prior studies are available for comparison. FINDINGS: Bone Structure: A focal ossific density is seen superimposed over the medial aspect of the head and neck of the left proximal femur. This could represent soft tissue calcification; however, further evaluation may be obtained if clinically indicated. The pelvic bones, including the iliac wings, ischium, pubis, and sacrum, are normal and intact. There is no evidence of dislocations or significant osseous lesions. Hip Joints: The hip joints are normal with preserved joint spaces. There is no evidence of hip dislocation, subluxation, or significant degenerative changes. Acetabulum: The acetabular structures appear normal and intact. There are no signs of acetabular fracture or dysplasia. Symphysis Pubis: The symphysis pubis is normal and intact. There is no evidence of separation or widening. Sacroiliac Joints: Degenerative changes are present in both sacroiliac joints. Soft Tissues: The visualized soft tissues are normal and unremarkable. There is no soft tissue swelling, calcification, or mass. Additional Findings: Phleboliths are seen. IMPRESSION: 1. A focal ossific density is seen superimposed over the medial aspect of the head and neck of the left proximal femur; this could represent soft tissue calcification. However, further evaluation may be obtained if clinically indicated. 2. No evidence of dislocation. 3. Both hip joints appear normal. Disclaimer: A subtle bone abnormality or fracture may not be readily apparent on X-rays, thus clinical correlation and further imaging including follow-up CT, MRI, or follow-up X-rays are advised as needed. Electronically signed by Adrian Page 09-14-2025 03:52 AM Discharge Plan Visit Data Chief Complaint: Fall Stated Complaint: fall, shoulder pain ED Provider: Gray Zavala Discharge Problem: Acute hyponatremia Patient Disposition: Admitted As Inpatient Condition: Fair Forms Stand Alone Forms: frintit Prescriptions Prescriptions: No Action fluoxetine [Prozac] 40 mg Capsule 40 mg PO QAM Rx Instructions: TOTAL DOSE 60 MG--TAKES WITH 20 MG CAP. albuterol sulfate 90 mcg/actuation HFA aerosol inhaler 2 puff INHALATION Q4 PRN (Reason: Wheezing) hydroxyzine HCl 25 mg tablet 25 mg PO Q6 PRN (Reason: anxiety) fluticasone propion-salmeterol 250-50 mcg/dose blister with device 1 ea INHALATION BID atorvastatin 20 mg tablet 20 mg PO QPM gabapentin 400 mg capsule 400 mg PO TID Rx Instructions: ON EXT MED HX--FILLED 04/21/24 FOR 100 DAY/300 CAPS. NOT ON [facility] MED LIST. bupropion HCl 100 mg tablet sustained-release 12 hr 100 mg PO QAM fluoxetine 20 mg capsule 20 mg PO QAM Rx Instructions: TOTAL DOSE 60 MG--TAKES WITH 40 MG CAP. meclizine 25 mg tablet 12.5 - 25 mg PO TID PRN (Reason: Dizziness) diclofenac sodium 1 % gel 2 g TOPICAL Q6 PRN (Reason: JOINT PAIN) Rx Instructions: LEFT ANKLE PAIN albuterol sulfate 2.5 mg /3 mL (0.083 %) Solution For Nebulization 2.5 mg INHALATION Q6H PRN (Reason: Wheezing) fexofenadine 180 mg Tablet 180 mg PO DAILY PRN (Reason: ALLERGY SYMPTOMS/ITCHING) thiamine HCl (vitamin B1) 100 mg Tablet 100 mg PO QAM Qty: 30 0RF docusate sodium 100 mg Capsule 100 mg PO BID Qty: 10 0RF Referrals Referrals: Gray Diehl MD [Primary Care Provider] -
[2025-09-14 02:26] LABS: Hematocrit (blood only) 35.1 % (37.0-47.0); Hemoglobin 12.1 g/dl (12.0-16.0); Immature Granulocytes # (auto) 0.11 K/uL (0.01-0.20); Immature Granulocytes % (auto) 0.8 %; Mean Corpuscular Hemoglobin 32.0 pg (25.0-34.0); Mean Corpuscular Volume 92.9 fL (80.0-100.0); Platelet Count 454 K/uL (130-400); RDW Standard Deviation 44.3 fL (36.4-46.3); Red Blood Count 3.78 M/uL (4.20-5.40); White Blood Count 13.57 K/ul (4.8-10.8)
[2025-09-14] MEDS: SODIUM CHLORIDE 0.9% 1,000 ML IV ONE (02:41)
[2025-09-14 02:42] LABS: Alanine Aminotransferase 21.0 U/L (7-52); Albumin Globulin Ratio 1.4 (0.9-2); Albumin Level 4.2 gm/dl (3.4-5.0); Alkaline Phosphatase 166.0 U/L (34-104); Anion Gap 8.0 (3-11); Bilirubin,Total 0.3 mg/dl (0.2-1.0); Blood Urea Nitrogen 12.0 mg/dl (6-23); Calcium 9.0 mg/dl (8.6-10.3); Carbon Dioxide 25.0 mmol/L (21-32); Chloride 93.0 mmol/L (98-107); Creatinine Clr Calc Pharmacy 76.8 ml/min; Globulin 3.0 gm/dl (2.5-4.0); Glucose 81.0 mg/dl (70-99(Fasting)); Lipase 44.0 U/L (11-82); Potassium 4.4 mmol/L (3.5-5.1); Sodium 126.0 mmol/L (136-145); Total Protein 7.2 gm/dl (6.0-8.3)
[2025-09-14] MEDS: MoRPHine SULFATE 2 MG/ML CARP IV STA (03:00)
--- NOTE | 2025-09-14 03:19 | CT Scan Report ---
EXAM: CT head/brain wo con CLINICAL HISTORY: fall TECHNIQUE: Multiple axial images were obtained from the skull base to the vertex without contrast. A CT scan was performed according to ALARA (as low as reasonably achievable). 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 FINDINGS: No evidence of space-occupying lesion, hemorrhage, edema, mass effect, midline shift, extra-axial collection, or hydrocephalus is noted. The basal cisterns are symmetric and normal in size and configuration. There are scattered periventricular hypodensities, as can be seen with chronic microvascular ischemic changes. The alegria-white matter differentiation is preserved. Mild mucosal thickening is seen in the visualized paranasal sinuses. The mastoid air cells are well aerated. The orbital contents are within normal limits. The bony structures are intact. IMPRESSION: 1. No evidence of acute intracranial abnormality is demonstrated. 2. Chronic microvascular ischemic changes. 3. No significant interval change. Electronically signed by Sim Luu 09-14-2025 03:19 AM
[2025-09-14 03:24] LABS: INR 1.0 (0.9-1.1); Partial Thromboplastin Time 27 Seconds (21-31); Prothrombin Time 10.3 Seconds (9.0-12.0)
--- NOTE | 2025-09-14 03:30 | XRay Report ---
EXAM: XR chest 1V portable CLINICAL HISTORY: Trauma TECHNIQUE: An X-ray image of the chest was obtained in AP projection. COMPARISON: Prior study from 10/16/2022. FINDINGS: Pulmonary Parenchyma: Hyperinflated lung ferguson are seen bilaterally. Clinical correlation is needed to assess for underlying chronic obstructive airway changes. The lungs are clear bilaterally. There is no evidence of consolidation, collapse, or focal opacities. No pulmonary nodules are identified. Prominent bronchovascular markings are seen bilaterally, likely age-related or nonspecific. There is no evidence of pleural effusion or pleural thickening. Heart and Mediastinum: The heart size and shape are normal. There is no mediastinal widening or masses. No hilar or mediastinal lymphadenopathy is seen. Bony Thorax: The bony thorax appears intact without acute fractures. A possible old fracture of the left clavicle is noted. Degenerative changes are seen in the cervical spine. Soft Tissues: The soft tissues overlying the chest wall are unremarkable. IMPRESSION: 1. No acute cardiopulmonary abnormalities are identified. 2. Hyperinflated lung ferguson are redemonstrated bilaterally. Clinical correlation is needed to assess for underlying chronic obstructive airway changes. Findings are interval stable. 3. No acute fracture is seen. 4. Old fracture of the left clavicle, interval stable. Electronically signed by Adrian Page 09-14-2025 03:30 AM
--- NOTE | 2025-09-14 03:50 | XRay Report ---
EXAM: XR shoulder RT min 2V routine CLINICAL HISTORY: Fall. TECHNIQUE: X-ray images of the right shoulder were obtained in anteroposterior (AP) and Y-view projections. COMPARISON: No prior studies are available for comparison. FINDINGS: Bone Structure: The bone structure is normal and aligned. There is no evidence of acute fracture. Slight superior migration of the head of humerus with respect to the glenoid and scapula suggested this could be due to mild soft tissue or ligamentous injury needs clinical correlation No osseous lesions or abnormalities are identified. Joint Spaces: Mild degenerative changes are seen in the right glenohumeral and acromioclavicular joints. Soft Tissues: No significant soft tissue swelling seen. Additional Findings: There are no signs of osteoarthritis, bone spurs, lytic, or sclerotic lesions. IMPRESSION: 1. No evidence of acute fracture. 2. Slight superior migration of the head of humerus with respect to the glenoid of scapula suggested, this could be due to mild soft tissue or ligamentous injury, needs Clinical correlation, and further evaluation by MRI may be obtained if clinically indicated. 3. Mild right glenohumeral and acromioclavicular joint osteoarthritis. Disclaimer: A subtle bone abnormality or fracture may not be readily apparent on X-rays, thus clinical correlation and further imaging including follow-up CT, MRI, or follow-up X-rays are advised as needed. Electronically signed by Adrian Page 09-14-2025 03:49 AM
--- NOTE | 2025-09-14 03:52 | XRay Report ---
EXAM: XR hips SUSY 1v w pelvis CLINICAL HISTORY: Fall TECHNIQUE: X-ray images of the pelvis and both hip joints were obtained in the anteroposterior (AP) projection. COMPARISON: No prior studies are available for comparison. FINDINGS: Bone Structure: A focal ossific density is seen superimposed over the medial aspect of the head and neck of the left proximal femur. This could represent soft tissue calcification; however, further evaluation may be obtained if clinically indicated. The pelvic bones, including the iliac wings, ischium, pubis, and sacrum, are normal and intact. There is no evidence of dislocations or significant osseous lesions. Hip Joints: The hip joints are normal with preserved joint spaces. There is no evidence of hip dislocation, subluxation, or significant degenerative changes. Acetabulum: The acetabular structures appear normal and intact. There are no signs of acetabular fracture or dysplasia. Symphysis Pubis: The symphysis pubis is normal and intact. There is no evidence of separation or widening. Sacroiliac Joints: Degenerative changes are present in both sacroiliac joints. Soft Tissues: The visualized soft tissues are normal and unremarkable. There is no soft tissue swelling, calcification, or mass. Additional Findings: Phleboliths are seen. IMPRESSION: 1. A focal ossific density is seen superimposed over the medial aspect of the head and neck of the left proximal femur; this could represent soft tissue calcification. However, further evaluation may be obtained if clinically indicated. 2. No evidence of dislocation. 3. Both hip joints appear normal. Disclaimer: A subtle bone abnormality or fracture may not be readily apparent on X-rays, thus clinical correlation and further imaging including follow-up CT, MRI, or follow-up X-rays are advised as needed. Electronically signed by Adrian Page 09-14-2025 03:52 AM
--- NOTE | 2025-09-14 04:13 | History & Physical Report ---
Date of Service September 14, 2025 Assessment & Plan (1) Hypotension: Plan: Assessment and plan below following discussion of case with ED provider and reviewing patient history/pertinent normal/abnormal diagnostic test results. Hypotension Hyponatremia possibly from alcohol abuse Traumatic right shoulder pain hyperlipidemia, on statin Rx COPD, lung status at baseline anxiety/mood disorder/schizophrenia, at baseline ongoing tobacco abuse Admit to PCU given hypotension Check lactic acid to determine need for additional IV hydration Hyponatremia workup, recheck serum sodium after initial fluid bolus given at the ER Orthopedics consult re: traumatic right shoulder pain TRISTAN S at risk protocol, DT precautions Nicotine patch as needed DVT prophylaxis. SCDs re: possible procedure Full code Text document was generated using [employer] voice recognition software. It may contain grammatical or spelling errors. Kindly contact undersigned for clarification of any documentation item in question. History of Present Illness Chief Complaint: Fall, right shoulder pain Primary Care Provider: Gray Diehl MD History obtained from patient and records. Medical history significant for hypertension, hyperlipidemia, COPD, anxiety/mood disorder, schizophrenia, ongoing tobacco/alcohol abuse. Last confinement 2023 for urinary retention in the setting of acute back pain. No surgical intervention. Patient was cleaning her kitchen when she lost her balance and fell. No head trauma. No chest pain, SOB, LOC. Achy right shoulder pain. SBP 80s upon arrival at the ER. Medical History as above Surgical History : Ankle surgery Family History : Breast cancer, DM, heart disease, COPD Personal/Social history : 1 pack daily, alcohol abuse as per records, retired [employer] employee Allergies Allergy/AdvReac Type Severity Reaction Status Date / Time No Known Allergies Allergy Verified 05/24/24 16:51 Home Medications Medication Instructions Recorded Confirmed Type fluoxetine 40 mg capsule (Prozac) 40 mg PO QAM 06/12/20 09/14/25 History albuterol sulfate 90 mcg/actuation 2 puff inhalation Q4 PRN Wheezing 07/12/20 09/14/25 History aerosol inhaler hydroxyzine HCl 25 mg tablet 25 mg PO Q6 PRN anxiety 07/13/20 09/14/25 History bupropion HCl 100 mg tablet,12 hr 100 mg PO QAM 05/05/21 09/14/25 History sustained-release gabapentin 400 mg capsule 400 mg PO TID 05/05/21 09/14/25 History atorvastatin 20 mg tablet 20 mg PO QPM 10/16/22 09/14/25 History diclofenac sodium 1 % topical gel 2 g topical Q6 PRN JOINT PAIN 10/09/23 09/14/25 History fluoxetine 20 mg capsule 20 mg PO QAM 10/09/23 09/14/25 History albuterol sulfate 2.5 mg/3 mL 2.5 mg inhalation Q6H PRN Wheezing 05/24/24 09/14/25 History (0.083 %) solution for nebulization cholecalciferol (vitamin D3) 50 50 mcg PO DAILY 09/14/25 09/14/25 History mcg (2,000 unit) capsule (Vitamin D3) cyclobenzaprine 10 mg tablet 10 mg PO BID 09/14/25 09/14/25 History Past Med/Surg History Problem List (Updated 09/14/25 @ 05:04 by Jamil Hayes MD) Hypotension Acute hyponatremia (Acute) Facet arthropathy, lumbosacral Myofascial pain Arthritis of left ankle Respiratory distress (Acute) COPD exacerbation (Acute) Tachypnea (Acute) Leukocytosis (Acute) Hypokalemia (Acute) Pneumonia DVT prophylaxis COPD exacerbation Anxiety Tobacco use disorder Depression Hyperlipidemia Medical History Anxiety Personal history of alcoholism COPD (chronic obstructive pulmonary disease) Surgical History No pertinent past surgical history Family History Mother CHF (congestive heart failure) Father Prostate cancer Aunt Breast cancer Social History Smoking Status: Current every day smoker Tobacco Type: Cigarettes Second Hand Exposure: No; Do You Dip or Chew Tobacco: No; Hx Alcohol Use: Yes Alcohol type: beer Alcohol Intake Frequency: 4 or More x per/Week Alcohol Intake Frequency Comment: 4 beers/day Hx Substance Use: Yes Non-Prescribed Medications: Marijuana Last Used Substance: Just Prior to Arrival Preferred Language: Japanese Communication Ability: Effective 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 Beliefs That Will Affect Care: None Current Living Situation: Alone Feels Safe at Home: Yes Assistive Devices: Walker Review of Systems Review of Systems: As per HPI, all other systems reviewed and negative Physical Exam Physical Exam: GENERAL: Slightly uncomfortable, looks older than stated age, raspy voice (from dry mouth as per patient), no respiratory distress SKIN: Normal color, warm HEENT: [place] palpebral conjunctivae, no ptosis, dry buccal mucosa NECK : Supple, no tenderness CHEST : Decreased breath sounds, no tenderness HEART : RRR, no obvious murmurs ABDOMEN: Some distention, nontender EXTREMITIES : Right shoulder tenderness, palpable pulses, no other conspicuous deformities noted NEUROLOGIC : Coherent, no facial asymmetry, no other gross focality Results & Data Results & Data Vital Signs (Past 12 Hours) Vital Signs Pulse Pulse Resp BP BP Pulse Ox O2 Del Method 09/14/25 04:00 89 23 92/71 L 93 Room Air 09/14/25 03:00 82 23 100/69 93 Room Air 09/14/25 02:42 83 22 98/76 L 96 Room Air 09/14/25 02:22 96 Room Air 09/14/25 02:10 85 09/14/25 02:04 90 16 86/60 L 96 Room Air Laboratory Results Laboratory Results WBC 13.57 K/ul (4.8-10.8) H 09/14/25 02:12 RBC 3.78 M/uL (4.20-5.40) L 09/14/25 02:12 Hgb 12.1 g/dl (12.0-16.0) 09/14/25 02:12 POC Hgb 12.6 g/dl (12.0-16.0) 09/14/25 02:26 Hct 35.1 % (37.0-47.0) L 09/14/25 02:12 POC Hct 37 % (37-47) 09/14/25 02:26 MCV 92.9 fL (80.0-100.0) 09/14/25 02:12 MCH 32.0 pg (25.0-34.0) 09/14/25 02:12 MCHC 34.5 g/dL (32.0-36.0) 09/14/25 02:12 RDW Std Deviation 44.3 fL (36.4-46.3) 09/14/25 02:12 RDW Coeff of Reyes 13.0 % (11.5-14.5) 09/14/25 02:12 Plt Count 454 K/uL (130-400) H 09/14/25 02:12 MPV 9.0 fL (9.4-12.4) L 09/14/25 02:12 Immature Gran % (Auto) 0.8 % 09/14/25 02:12 Neut % (Auto) 71.2 % 09/14/25 02:12 Lymph % (Auto) 21.6 % 09/14/25 02:12 Irion % (Auto) 4.6 % 09/14/25 02:12 Eos % (Auto) 0.7 % 09/14/25 02:12 Baso % (Auto) 1.1 % 09/14/25 02:12 Neut # (Auto) 9.66 K/uL (1.40-6.50) H 09/14/25 02:12 Lymph # (Auto) 2.93 K/uL (1.20-3.40) 09/14/25 02:12 Irion # (Auto) 0.63 K/uL (0.11-0.59) H 09/14/25 02:12 Eos # (Auto) 0.09 K/uL (0.00-0.50) 09/14/25 02:12 Baso # (Auto) 0.15 K/uL (0.00-0.20) 09/14/25 02:12 Immature Gran # (Auto) 0.11 K/uL (0.01-0.20) 09/14/25 02:12 PT 10.3 Seconds (9.0-12.0) 09/14/25 02:12 INR 1.0 (0.9-1.1) 09/14/25 02:12 APTT 27 Seconds (21-31) 09/14/25 02:12 PTT Ratio 1.0 09/14/25 02:12 POC Sodium 126 mmol/L (135-144) L 09/14/25 02:26 Sodium 126 mmol/L (136-145) L 09/14/25 02:12 POC Potassium 4.4 mmol/L (3.3-5.0) 09/14/25 02:26 Potassium 4.4 mmol/L (3.5-5.1) 09/14/25 02:12 POC Chloride 93 mmol/L (101-112) L 09/14/25 02:26 Chloride 93 mmol/L (98-107) L 09/14/25 02:12 Carbon Dioxide 25 mmol/L (21-32) 09/14/25 02:12 POC Total CO2 23 mmol/L (24-31) L 09/14/25 02:26 Anion Gap 8 (3-11) 09/14/25 02:12 POC Anion Gap 15.0 mmol/L (16-25) L 09/14/25 02:26 POC BUN 10 mg/dl (7-18) 09/14/25 02:26 BUN 12 mg/dl (6-23) 09/14/25 02:12 Creatinine 0.58 mg/dl (0.6-1.2) L 09/14/25 02:12 POC Creatinine 0.9 mg/dl (0.6-1.3) 09/14/25 02:26 Est Cr Clr Drug Dosing 76.8 ml/min 09/14/25 02:12 eGFR 98.51 09/14/25 02:12 BUN/Creatinine Ratio 20.7 (10-20) H 09/14/25 02:12 Glucose 81 mg/dl (70-99(Fasting)) 09/14/25 02:12 POC Glucose (other) 84 mg/dl (70-99) 09/14/25 02:26 Calcium 9.0 mg/dl (8.6-10.3) 09/14/25 02:12 POC Ioniz Calcium Celina 1.07 mmol/l (1.12-1.32) L 09/14/25 02:26 Total Bilirubin 0.3 mg/dl (0.2-1.0) 09/14/25 02:12 AST 24 U/L (13-39) 09/14/25 02:12 ALT 21 U/L (7-52) 09/14/25 02:12 Alkaline Phosphatase 166 U/L (34-104) H 09/14/25 02:12 Total Protein 7.2 gm/dl (6.0-8.3) 09/14/25 02:12 Albumin 4.2 gm/dl (3.4-5.0) 09/14/25 02:12 Globulin 3.0 gm/dl (2.5-4.0) 09/14/25 02:12 Albumin/Globulin Ratio 1.4 (0.9-2) 09/14/25 02:12 Lipase 44 U/L (11-82) 09/14/25 02:12 Impressions Chest X-Ray 09/14/25 02:14 EXAM: XR chest 1V portable CLINICAL HISTORY: Trauma TECHNIQUE: An X-ray image of the chest was obtained in AP projection. COMPARISON: Prior study from 10/16/2022. FINDINGS: Pulmonary Parenchyma: Hyperinflated lung ferguson are seen bilaterally. Clinical correlation is needed to assess for underlying chronic obstructive airway changes. The lungs are clear bilaterally. There is no evidence of consolidation, collapse, or focal opacities. No pulmonary nodules are identified. Prominent bronchovascular markings are seen bilaterally, likely age-related or nonspecific. There is no evidence of pleural effusion or pleural thickening. Heart and Mediastinum: The heart size and shape are normal. There is no mediastinal widening or masses. No hilar or mediastinal lymphadenopathy is seen. Bony Thorax: The bony thorax appears intact without acute fractures. A possible old fracture of the left clavicle is noted. Degenerative changes are seen in the cervical spine. Soft Tissues: The soft tissues overlying the chest wall are unremarkable. IMPRESSION: 1. No acute cardiopulmonary abnormalities are identified. 2. Hyperinflated lung ferguson are redemonstrated bilaterally. Clinical correlation is needed to assess for underlying chronic obstructive airway changes. Findings are interval stable. 3. No acute fracture is seen. 4. Old fracture of the left clavicle, interval stable. Electronically signed by Adrian Page 09-14-2025 03:30 AM Shoulder X-Ray 09/14/25 02:14 EXAM: XR shoulder RT min 2V routine CLINICAL HISTORY: Fall. TECHNIQUE: X-ray images of the right shoulder were obtained in anteroposterior (AP) and Y-view projections. COMPARISON: No prior studies are available for comparison. FINDINGS: Bone Structure: The bone structure is normal and aligned. There is no evidence of acute fracture. Slight superior migration of the head of humerus with respect to the glenoid and scapula suggested this could be due to mild soft tissue or ligamentous injury needs clinical correlation No osseous lesions or abnormalities are identified. Joint Spaces: Mild degenerative changes are seen in the right glenohumeral and acromioclavicular joints. Soft Tissues: No significant soft tissue swelling seen. Additional Findings: There are no signs of osteoarthritis, bone spurs, lytic, or sclerotic lesions. IMPRESSION: 1. No evidence of acute fracture. 2. Slight superior migration of the head of humerus with respect to the glenoid of scapula suggested, this could be due to mild soft tissue or ligamentous injury, needs Clinical correlation, and further evaluation by MRI may be obtained if clinically indicated. 3. Mild right glenohumeral and acromioclavicular joint osteoarthritis. Disclaimer: A subtle bone abnormality or fracture may not be readily apparent on X-rays, thus clinical correlation and further imaging including follow-up CT, MRI, or follow-up X-rays are advised as needed. Electronically signed by Adrian Page 09-14-2025 03:[address] 09/14/25 02:15 EXAM: CT head/brain wo con CLINICAL HISTORY: fall TECHNIQUE: Multiple axial images were obtained from the skull base to the vertex without contrast. A CT scan was performed according to ALARA (as low as reasonably achievable). COMPARISON: 05/24/2024 16:01:59 ASSOCIATE DIRECTOR OF DEVELOPMENT. FINDINGS: No evidence of space-occupying lesion, hemorrhage, edema, mass effect, midline shift, extra-axial collection, or hydrocephalus is noted. The basal cisterns are symmetric and normal in size and configuration. There are scattered periventricular hypodensities, as can be seen with chronic microvascular ischemic changes. The alegria-white matter differentiation is preserved. Mild mucosal thickening is seen in the visualized paranasal sinuses. The mastoid air cells are well aerated. The orbital contents are within normal limits. The bony structures are intact. IMPRESSION: 1. No evidence of acute intracranial abnormality is demonstrated. 2. Chronic microvascular ischemic changes. 3. No significant interval change. Electronically signed by Sim Luu 09-14-2025 03:19 AM Hip/Pelvis X-Ray 09/14/25 02:15 EXAM: XR hips SUSY 1v w pelvis CLINICAL HISTORY: Fall TECHNIQUE: X-ray images of the pelvis and both hip joints were obtained in the anteroposterior (AP) projection. COMPARISON: No prior studies are available for comparison. FINDINGS: Bone Structure: A focal ossific density is seen superimposed over the medial aspect of the head and neck of the left proximal femur. This could represent soft tissue calcification; however, further evaluation may be obtained if clinically indicated. The pelvic bones, including the iliac wings, ischium, pubis, and sacrum, are normal and intact. There is no evidence of dislocations or significant osseous lesions. Hip Joints: The hip joints are normal with preserved joint spaces. There is no evidence of hip dislocation, subluxation, or significant degenerative changes. Acetabulum: The acetabular structures appear normal and intact. There are no signs of acetabular fracture or dysplasia. Symphysis Pubis: The symphysis pubis is normal and intact. There is no evidence of separation or widening. Sacroiliac Joints: Degenerative changes are present in both sacroiliac joints. Soft Tissues: The visualized soft tissues are normal and unremarkable. There is no soft tissue swelling, calcification, or mass. Additional Findings: Phleboliths are seen. IMPRESSION: 1. A focal ossific density is seen superimposed over the medial aspect of the head and neck of the left proximal femur; this could represent soft tissue calcification. However, further evaluation may be obtained if clinically indicated. 2. No evidence of dislocation. 3. Both hip joints appear normal. Disclaimer: A subtle bone abnormality or fracture may not be readily apparent on X-rays, thus clinical correlation and further imaging including follow-up CT, MRI, or follow-up X-rays are advised as needed. Electronically signed by Adrian Page 09-14-2025 03:52 AM
[2025-09-14] MEDS: THIAMINE HCL 100 MG in SYRINGE 9 ML IV STA (04:35)
[2025-09-14] MEDS ORDERED: DICLOFENAC SOD 1% GEL 100 GM TUBE EXT PRN (04:50)
[2025-09-14] MEDS ORDERED: PROMETHAZINE 6.25 MG/50.25 ML BAG IV PRN (04:51)
[2025-09-14] MEDS ORDERED: LORazepam Inj 1 MG in SYRINGE 0.5 ML IV PRN (04:55)
--- NOTE | 2025-09-14 05:10 | XRay Report ---
EXAM: XR ankle LT min 3V routine CLINICAL HISTORY: Fall. Old history of fracture fixation. TECHNIQUE: X-ray images of the left ankle were obtained in anteroposterior (AP), lateral, and mortise projections. COMPARISON: 10/18/2022, CR Ankle FINDINGS: Bone Structure: Reduced bone density. Postsurgical changes with screws are identified in the distal tibia. Sclerosis with possible patchy lucencies is seen in the distal fibula and talus bone, and possible subtle sclerosis is present at the distal tibia. Ossification adjacent to the distal fibula may represent osteophytes. Findings are seen along the tibia, fibula, and tarsal bones. No evidence of acute fracture or dislocation. No osseous lesions identified. Joint Spaces: Reduced joint space is seen at the tibiotalar and tibiofemoral joints. No evidence of joint effusion or subluxation. Soft Tissues: Possible mild soft tissue swelling in the ankle. Additional Findings: Possible tiny calcaneal spur. IMPRESSION: No evidence of acute fracture. Redemonstration of postsurgical changes in the distal tibia. No definite evidence of loosening. Sclerosis with possible patchy lucencies is seen in the distal fibula and talus bone, and possible subtle sclerosis at the distal tibia, with interval progression of these changes in the talus and interval regression in the fibula and distal tibia. Findings may be related to prior traumatic changes leading to secondary tibiotalar osteoarthritis. Reduced joint space is seen at the tibiotalar and tibiofemoral joint, with possible interval progression of reduction of joint space at the tibiotalar joint, seen on the lateral view. Disclaimer: A subtle bone abnormality or fracture may not be readily apparent on X-rays; thus clinical correlation and further imaging including follow-up CT, MRI, or follow-up X-rays are advised as needed. Electronically signed by Adrian Page 09-14-2025 05:09 AM
[2025-09-14 05:27] LABS: Sodium 130.0 mmol/L (136-145)
[2025-09-14 05:44] LABS: Thyroid Stimulating Hormone 1.181 uIu/ml (0.300-4.500)
[2025-09-14] MEDS: ACETAMINOPHEN 325 MG TAB PO PRN (08:15)
[2025-09-14] MEDS: GABAPENTIN 400 MG CAP PO SCH (08:16)
[2025-09-14] MEDS: FOLIC ACID 1 MG TAB PO SCH (08:16)
[2025-09-14] MEDS: MULTIVITAMIN TAB PO SCH (08:16)
[2025-09-14 10:23] LABS: Appearance Urine Clear (Clear); Glucose Urine UA Negative (Negative)
--- NOTE | 2025-09-14 11:20 | Hospitalist Progress Note ---
Date of Service September 14, 2025 Assessment & Plan (1) Hypotension: Plan: 69F with PMH alcohol abuse, hyponatremia, HLD, COPD, schizophrenia, tobacco abuse who presents with R shoulder pain after a mechanical fall #Acute on Chronic hyponatremia -Baseline Sodium around 132 -Na 126 on admission -Asymptomatic -Likely Beer potomania Plan -Recheck in AM -Avoid rapid overcorrection -Encourage alcohol cessation #R shoulder pain -Mechanical fall -No head trauma or LOC -X rays without evidence of fracture -R shoulder x ray showing DJD, possible soft tissue/ligament injury Plan -Ortho consulted, appreciate input -PT/OT #Hypotension -Asymptomatic -Lactic acid normal -No s/s infection -Mild leukocytosis, likely reactive from fall Plan -Observe off abx -Monitor temp, WBC, vitals #Alcohol abuse -Denies history of withdrawal -Continue CIKY protocol #Thrombocytosis -Plts 454, was 428 in 2023 -Advised she have repeat CBC in a few weeks with her PCP -If it remains elevated, may benefit from OP hematology eval Admission and Anticipated Discharge Date Admission Date: September 14, 2025 Subjective Feeling well today. her only complaint is R shoulder pain Physical Exam Physical Exam: Vitals and labs reviewed General: Well appearing, NAD HEENT: EOMI, PERRLA Neck: Supple Cardiac: RRR no rubs gallops or murmurs Lungs: CTA no rhonchi wheezing or rales Abd: S NT ND BS positive : Deffered MSK: limited ROM in R shoulder due to pain Ext: No Edema cyanosis Skin: Warm, Dry Neuro: AOx3 No focal deficits. Psych: Normal Mood Results & Data Results & Data Vital Signs (Past 12 Hours) Vital Signs Temp Pulse Pulse Resp BP BP Pulse Ox 09/14/25 08:30 09/14/25 07:15 37.1 C 88 18 96/65 L 92 09/14/25 06:35 09/14/25 06:22 36.7 C 90 16 102/68 92 09/14/25 04:00 89 23 92/71 L 93 09/14/25 03:00 82 23 100/69 93 09/14/25 02:42 83 22 98/76 L 96 09/14/25 02:22 96 09/14/25 02:10 85 09/14/25 02:04 90 16 86/60 L 96 O2 Del Method 09/14/25 08:30 Room Air 09/14/25 07:15 Room Air 09/14/25 06:35 Room Air 09/14/25 06:22 Room Air 09/14/25 04:00 Room Air 09/14/25 03:00 Room Air 09/14/25 02:42 Room Air 09/14/25 02:22 Room Air 09/14/25 02:10 09/14/25 02:04 Room Air Laboratory Results Abnormal lab results 09/14/25 09/14/25 09/14/25 Range/Units 02:12 02:26 04:59 WBC 13.57 H (4.8-10.8) K/ul RBC 3.78 L (4.20-5.40) M/uL Hct 35.1 L (37.0-47.0) % Plt Count 454 H (130-400) K/uL MPV 9.0 L (9.4-12.4) fL Neut # (Auto) 9.66 H (1.40-6.50) K/uL [place] # (Auto) 0.63 H (0.11-0.59) K/uL POC Sodium 126 L (135-144) mmol/L Sodium 126 L 130 L (136-145) mmol/L POC Chloride 93 L (101-112) mmol/L Chloride 93 L (98-107) mmol/L POC Total CO2 23 L (24-31) mmol/L POC Anion Gap 15.0 L (16-25) mmol/L Creatinine 0.58 L (0.6-1.2) mg/dl BUN/Creatinine Ratio 20.7 H (10-20) POC Ioniz Calcium Celina 1.07 L (1.12-1.32) mmol/l Alkaline Phosphatase 166 H (34-104) U/L Urine Osmolality (500-800) mOsm/kg Ethyl Alcohol mg/dL 59.8 H (<10.0) mg/dl 09/14/25 Range/Units Unknown WBC (4.8-10.8) K/ul RBC (4.20-5.40) M/uL Hct (37.0-47.0) % Plt Count (130-400) K/uL MPV (9.4-12.4) fL Neut # (Auto) (1.40-6.50) K/uL [place] # (Auto) (0.11-0.59) K/uL POC Sodium (135-144) mmol/L Sodium (136-145) mmol/L POC Chloride (101-112) mmol/L Chloride (98-107) mmol/L POC Total CO2 (24-31) mmol/L POC Anion Gap (16-25) mmol/L Creatinine (0.6-1.2) mg/dl BUN/Creatinine Ratio (10-20) POC Ioniz Calcium Celina (1.12-1.32) mmol/l Alkaline Phosphatase (34-104) U/L Urine Osmolality 111 L (500-800) mOsm/kg Ethyl Alcohol mg/dL (<10.0) mg/dl
[2025-09-14 11:40] LABS: Amphetamines+Metham, Urine Neg (Neg); MDMA (Ecstacy), Urine Pos (Neg); Marijuana, Urine Pos (Neg)
--- NOTE | 2025-09-14 15:07 | CT Scan Report ---
RIGHT SHOULDER CT WITHOUT CONTRAST CLINICAL HISTORY: fall, pain COMPARISON STUDY: Right shoulder radiographs performed earlier today. Chest CT October 16, 2022. TECHNIQUE: Axial images of the right shoulder were obtained without IV contrast. Sagittal and coronal reformats were viewed. A dose lowering technique was utilized adhering to the principles of ALARA. FINDINGS: Alignment of the right acromioclavicular and glenohumeral joints is anatomic. There is a ri ght glenohumeral joint effusion. There is an acute fracture involving the anterolateral aspect of the right humeral head. Several associated intra-articular bone fragments are present. The largest fragm ent measures 3 x 0.8 cm. No glenoid fracture is present. There are mild degenerative changes within t he right shoulder. No additional acute fractures are identified. Several small right apical pulmonary nodular densities remain unchanged since prior chest CT. There is mild emphysema. An old T2 compress ion fracture is present. An age indeterminate T6 vertebral body fracture is partially imaged. However , this is likely subacute to chronic given sclerosis. IMPRESSION: 1. Acute right humeral head fracture, as described above. Several associated intra-articular bone fra gments that measure up to 3 x 0.8 cm. Anatomic alignment of the right glenohumeral joint. No addition al acute fractures. 2. Right glenohumeral joint effusion. 3. Age-indeterminate but likely subacute to chronic partially visualized T6 compression fracture. ACT 112: Negative or not required by law. Electronically signed by: Michael Velázquez M.D. 09/14/2025 3:06 PM
--- NOTE | 2025-09-14 20:01 | Orthopedic Consultation ---
Date of Consultation September 14, 2025 Assessment & Plan (1) Closed fracture of right proximal humerus: (2) Hypotension: (3) Acute hyponatremia: (4) Respiratory distress: (5) COPD exacerbation: (6) Leukocytosis: (7) Pneumonia: (8) Hypokalemia: (9) Tobacco use disorder: (10) Anxiety: (11) Depression: (12) Personal history of alcoholism: (13) COPD (chronic obstructive pulmonary disease): Plan This is a 69-year-old female who appears older than stated age who was admitted to the hospital service after a fall that occurred yesterday. This fall resulted in a closed, traumatic, displaced fracture of the right proximal humerus. This appears to be a greater tuberosity fracture variant. With superior displacement of the greater tuberosity into the subacromial space. Additionally, upon presentation, the patient was found to be hyponatremic, hypotensive. The patient is a quite medically sick female and continues to abuse alcohol and tobacco. I do long discussion with her regarding the nature of her injury. Discussed in great detail the pathoanatomy, pathophysiology, treatment options. I discussed with her that fractures of the humeral head sometimes can be managed operatively and sometimes nonoperatively, however determining appropriate surgical recommendations is based on patient presentation. Given the CT scan findings of the quite retracted greater tuberosity, I am suspicious that this may benefit from operative intervention, however I would like to have a shoulder specialist weigh in on this. I would recommend the patient follow-up with Dr. Bertrand upon discharge as he is our shoulder specialist. That said, given the patient's medical comorbidities, she may not be an ideal surgical candidate. For the time being, I do recommend the patient wear a right upper extremity sling. She should be nonweightbearing on the right upper extremity. History of Present Illness Reason for Consultation: right shoulder pain Attending Physician: Luis Alberto Mishra DO History of Present Illness The patient is a 69-year-old female who presents the emergency department after ground-level fall. Patient states she was cleaning her kitchen when she walked back into the kitchen from the living room and she lost her balance and fell. Patient does admit to smoking medical marijuana on the day of presentation as well as drinking alcohol. Patient states that she fell onto her right shoulder where she now has some acute pain. Patient states she does not believe she hit her head. On arrival here to the ED the patient is alert, she has mild hypotension at 86/60 but otherwise appears to be in no acute distress. Patient is saturating well on room air on arrival. The patient was admitted to the hospitalist service and orthopedics was consulted for shoulder pain. X-rays were obtained that were not read as concerning for fracture. In my evaluation, the patient notes pain in her right shoulder. She does have a history of cervical stenosis and notes that her right upper extremity is numb and tingling at baseline. She notes pain with any attempted shoulder range of motion. Allergies Allergy/AdvReac Type Severity Reaction Status Date / Time No Known Allergies Allergy Verified 05/24/24 16:51 Home Medications Medication Instructions Recorded Confirmed Type fluoxetine 40 mg capsule (Prozac) 40 mg PO QAM 06/12/20 09/14/25 History albuterol sulfate 90 mcg/actuation 2 puff inhalation Q4 PRN Wheezing 07/12/20 09/14/25 History aerosol inhaler hydroxyzine HCl 25 mg tablet 25 mg PO Q6 PRN anxiety 07/13/20 09/14/25 History bupropion HCl 100 mg tablet,12 hr 100 mg PO QAM 05/05/21 09/14/25 History sustained-release gabapentin 400 mg capsule 400 mg PO TID 05/05/21 09/14/25 History atorvastatin 20 mg tablet 20 mg PO QPM 10/16/22 09/14/25 History diclofenac sodium 1 % topical gel 2 g topical Q6 PRN JOINT PAIN 10/09/23 09/14/25 History fluoxetine 20 mg capsule 20 mg PO QAM 10/09/23 09/14/25 History albuterol sulfate 2.5 mg/3 mL 2.5 mg inhalation Q6H PRN Wheezing 05/24/24 09/14/25 History (0.083 %) solution for nebulization cholecalciferol (vitamin D3) 50 50 mcg PO DAILY 09/14/25 09/14/25 History mcg (2,000 unit) capsule (Vitamin D3) cyclobenzaprine 10 mg tablet 10 mg PO BID 09/14/25 09/14/25 History Patient History Medical History Anxiety Personal history of alcoholism COPD (chronic obstructive pulmonary disease) Surgical History No pertinent past surgical history Family History Mother CHF (congestive heart failure) Father Prostate cancer Aunt Breast cancer Social History Smoking Status: Current every day smoker Tobacco Type: Cigarettes Cigarettes Per Day: 1 pack; Second Hand Exposure: No; Do You Dip or Chew Tobacco: No; Hx Alcohol Use: Yes Alcohol type: beer Alcohol Intake Frequency: 4 or More x per/Week Alcohol Intake Frequency Comment: 4 beers/day Hx Substance Use: Yes Non-Prescribed Medications: Marijuana Last Used Substance: Just Prior to Arrival Preferred Language: Japanese Communication Ability: Effective 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 She demonstrates intact AIN, PIN, radial, median, ulnar nerve motor function, however she has diminished sensation at baseline in her upper extremity. She is nontender at her wrist. Nontender at her elbow. Results & Data Vital Signs (Past 12 Hours) Vital Signs Temp Pulse Pulse Resp BP Pulse Ox O2 Del Method 09/14/25 19:44 Room Air 09/14/25 18:49 90/61 L 09/14/25 17:16 82 09/14/25 16:00 81 09/14/25 15:57 36.6 C 83 18 90/56 L 92 Room Air 09/14/25 13:40 88 09/14/25 11:16 36.7 C 89 18 128/70 93 Room Air 09/14/25 08:30 Room Air Diagnostic Findings X-rays of the right shoulder personally interpreted and reviewed. These demonstrate findings concerning for potential humeral head fracture. CT scan of the right shoulder personally interpreted and reviewed. This demo nstrates a fracture of the right humeral head at the greater tuberosity with superior displacement of the fracture fragment. Fracture fragment does appear to be resting within the subacromial space. (6) Leukocytosis Leukocytosis type: unspecified Qualified Code(s): D72.829 - Elevated white blood cell count, unspecified
[2025-09-14] MEDS: ATORVASTATIN 20 MG TAB PO SCH (21:34)
[2025-09-15] MEDS: THIAMINE HCL 100 MG TAB PO SCH (08:22)
[2025-09-15 08:37] LABS: Hematocrit (blood only) 35.9 % (37.0-47.0); Hemoglobin 12.6 g/dl (12.0-16.0); Immature Granulocytes # (auto) 0.03 K/uL (0.01-0.20); Immature Granulocytes % (auto) 0.3 %; Mean Corpuscular Hemoglobin 32.1 pg (25.0-34.0); Mean Corpuscular Volume 91.3 fL (80.0-100.0); Platelet Count 427 K/uL (130-400); RDW Standard Deviation 44.6 fL (36.4-46.3); Red Blood Count 3.93 M/uL (4.20-5.40); White Blood Count 10.83 K/ul (4.8-10.8)
[2025-09-15 08:50] LABS: Anion Gap 8.0 (3-11); Blood Urea Nitrogen 10.0 mg/dl (6-23); Calcium 8.6 mg/dl (8.6-10.3); Carbon Dioxide 23.0 mmol/L (21-32); Chloride 104.0 mmol/L (98-107); Creatinine Clr Calc Pharmacy 105.7 ml/min; Glucose 91.0 mg/dl (70-99(Fasting)); Potassium 4.2 mmol/L (3.5-5.1); Sodium 135.0 mmol/L (136-145)
--- NOTE | 2025-09-15 09:41 | Discharge Summary ---
Discharge Summary Date of Service September 15, 2025 Principal Dx & Hospital Course #1 = Principal Diagnosis (1) Hypotension: 69F with PMH alcohol abuse, hyponatremia, HLD, COPD, schizophrenia, tobacco abuse who presents with R shoulder pain after a mechanical fall. X rays were negative for fracture. Ortho was consulted and ordered CT shoulder which did show an acute R humeral head fracture. She was placed in a sling. Ortho recommended she follow up with Dr. Bertrand as OP who is a shoulder specialist. She is c/o mild pain today and is eager for discharge. Her hospital course was complicated by acute on chronic hyponatremia which resolved on its own. Na 135 today which is around her baseline. blood alcohol level was .6 on admission. Likely beer potomania. UDS pos for opioids, MDMA and marijuana. She was advised of the risks of drug use and to abstain from drug and alcohol use. Vitals stable on day of discharge. She also had thrombocytosis, likely reactive from fracture but advised her to have a CBC in one month to follow up. #Acute on Chronic hyponatremia -Baseline Sodium around 132 -Na 126 on admission -Asymptomatic -Likely Beer potomania #R Humeral head fracture -Ortho consulted, appreciate input -PT/OT #Hypotension -Asymptomatic -Lactic acid normal -No s/s infection -Mild leukocytosis, likely reactive from fall Plan -Observe off abx -Monitor temp, WBC, vitals #Alcohol abuse -Denies history of withdrawal -Continue [facility] protocol #Thrombocytosis -Plts 454, was 428 in 2023 -Advised she have repeat CBC in a few weeks with her PCP -If it remains elevated, may benefit from OP hematology eval Notes For Next Care Provider Medication Changes From Visit oxycodone, very short course--8 tablets Advised she take tylenol scheduled for the next 5 days Admission HPI Per Admitting Provider History obtained from patient and records. Medical history significant for hypertension, hyperlipidemia, COPD, anxiety/mood disorder, schizophrenia, ongoing tobacco/alcohol abuse. Last confinement 2023 for urinary retention in the setting of acute back pain. No surgical intervention. Patient was cleaning her kitchen when she lost her balance and fell. No head trauma. No chest pain, SOB, LOC. Achy right shoulder pain. SBP 80s upon arrival at the ER. 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 No obvious deformities Ext: No Edema cyanosis Skin: Warm, Dry Neuro: AOx3 No focal deficits. Psych: Normal Mood Updated Medication List Medication Instructions Recorded Confirmed Type fluoxetine 40 mg capsule (Prozac) 40 mg PO QAM 06/12/20 09/14/25 History albuterol sulfate 90 mcg/actuation 2 puff inhalation Q4 PRN Wheezing 07/12/20 09/14/25 History aerosol inhaler hydroxyzine HCl 25 mg tablet 25 mg PO Q6 PRN anxiety 07/13/20 09/14/25 History bupropion HCl 100 mg tablet,12 hr 100 mg PO QAM 05/05/21 09/14/25 History sustained-release gabapentin 400 mg capsule 400 mg PO TID 05/05/21 09/14/25 History atorvastatin 20 mg tablet 20 mg PO QPM 10/16/22 09/14/25 History diclofenac sodium 1 % topical gel 2 g topical Q6 PRN JOINT PAIN 10/09/23 09/14/25 History fluoxetine 20 mg capsule 20 mg PO QAM 10/09/23 09/14/25 History albuterol sulfate 2.5 mg/3 mL 2.5 mg inhalation Q6H PRN Wheezing 05/24/24 09/14/25 History (0.083 %) solution for nebulization cholecalciferol (vitamin D3) 50 50 mcg PO DAILY 09/14/25 09/14/25 History mcg (2,000 unit) capsule (Vitamin D3) cyclobenzaprine 10 mg tablet 10 mg PO BID 09/14/25 09/14/25 History oxycodone 5 mg tablet 5 mg PO Q8H PRN severe seay 5 days 09/15/25 Rx #8 tabs Hospital Stay Data Consultations 09/14/25 04:01 ED Decision to Admit Stat 09/14/25 04:55 Consult Orthopedic Surgery Routine Diagnostic Imagining Performed 09/14/25 02:15 CT head/brain wo con Stat 09/14/25 13:44 CT shoulder RT wo con Stat Pending Results Patient Have Any Pending Studies at Discharge: No Discharge Instructions Given to Patient (Per Discharging Provider) Please call Dr. Cuong Bertrand, to schedule an appt for your shoulder. Please abstain from drug and alcohol use. For pain, take 1000mg tylenol three times per day x 5 days. Only take oxycodone if absolutely needed. Please ask your PCP to recheck your platelet levels in one month Total Time Total Time Spent Total Time Spent (In Minutes): 46
--- NOTE | 2025-09-15 13:08 | Hospitalist Progress Note ---
Date of Service September 15, 2025 Assessment & Plan (1) Hypotension: Plan: 69F with PMH alcohol abuse, hyponatremia, HLD, COPD, schizophrenia, tobacco abuse who presents with R shoulder pain after a mechanical fall. X rays were negative for fracture. Ortho was consulted and ordered CT shoulder which did show an acute R humeral head fracture. She was placed in a sling. Ortho recommended she follow up with Dr. Bertrand as OP who is a shoulder specialist. She is c/o mild pain today and is eager for discharge. Her hospital course was complicated by acute on chronic hyponatremia which resolved on its own. Na 135 today which is around her baseline. blood alcohol level was .6 on admission. Likely beer potomania. UDS pos for opioids, MDMA and marijuana. She was advised of the risks of drug use and to abstain from drug and alcohol use. Vitals stable on day of discharge. She also had thrombocytosis, likely reactive from fracture but advised her to have a CBC in one month to follow up. #Acute on Chronic hyponatremia -Baseline Sodium around 132 -Na 126 on admission -Asymptomatic -Likely Beer potomania -Resolved; Na 135 Plan -Waiting on IPR placement #R Humeral head fracture -Ortho consulted, appreciate input -PT/OT -OP f/u with ortho #Hypotension -Asymptomatic -Lactic acid normal -No s/s infection -Mild leukocytosis, likely reactive from fall -Improved Plan -Observe off abx -Monitor temp, WBC, vitals #Alcohol abuse -Denies history of withdrawal -Continue [facility] protocol -No s/s withdrawal currently #Positive UDS -Drug and alcohol cessation counseling provided #Thrombocytosis -Plts 454 on admission, was 428 in 2023 -Plts improved to 427 -Likely reactive from Fracture -Advised she have repeat CBC in a few weeks with her PCP -If it remains elevated, may benefit from OP hematology silviano I spent a total of 55 minutes coordinating, documenting, and providing care for this patient excluding time spent in the performance of separately billed services. This included personally reviewing all current laboratories and imaging studies, medical reconciliation, outpatient chart review and discussion with specialists Admission and Anticipated Discharge Date Admission Date: September 14, 2025 Subjective Feeling well today. her only complaint is R shoulder pain. Patient denies F/C, CP, palpitations, SOB, dyspnea, abd pain, N/V/D Physical Exam Physical Exam: Vitals and labs reviewed General: Well appearing, NAD HEENT: EOMI, PERRLA Neck: Supple Cardiac: RRR no rubs gallops or murmurs Lungs: CTA no rhonchi wheezing or rales Abd: S NT ND BS positive : Deffered MSK: limited ROM in R shoulder due to pain Ext: No Edema cyanosis Skin: Warm, Dry Neuro: AOx3 No focal deficits. Psych: Normal Mood Results & Data Results & Data Vital Signs (Past 12 Hours) Vital Signs Temp Pulse Resp BP Pulse Ox O2 Del Method 09/15/25 11:39 36.6 C 80 20 93/71 L 93 Room Air 09/15/25 08:00 36.4 C L 83 20 105/71 92 Room Air 09/15/25 07:41 Room Air 09/15/25 03:25 36.5 C 78 16 100/66 95 Room Air
[2025-09-15] MEDS: ALBUT/IPRATROP 3MG/0.5MG NEB 3 ML VIAL NEB PRN (13:56)
[2025-09-15] MEDS ORDERED: ALBUTEROL HFA 8 GM INHALER INH PRN (15:27)
[2025-09-15] MEDS ORDERED: ALBUTEROL 0.083% NEBU SOLN 3 ML VIAL INH PRN (15:27)
[2025-09-15] MEDS: ALBUMIN 25% 25 GM/100 ML VIAL IV ONE (23:33)
--- NOTE | 2025-09-16 11:19 | Hospitalist Progress Note ---
Date of Service September 16, 2025 Assessment & Plan (1) Hypotension: Plan: 69F with PMH alcohol abuse, hyponatremia, HLD, COPD, schizophrenia, tobacco abuse who presents with R shoulder pain after a mechanical fall. X rays were negative for fracture. Ortho was consulted and ordered CT shoulder which did show an acute R humeral head fracture. She was placed in a sling. Ortho recommended she follow up with Dr. Bertrand as OP who is a shoulder specialist. She is c/o mild pain today and is eager for discharge. Her hospital course was complicated by acute on chronic hyponatremia which resolved on its own. Na 135 today which is around her baseline. blood alcohol level was .6 on admission. Likely beer potomania. UDS pos for opioids, MDMA and marijuana. She was advised of the risks of drug use and to abstain from drug and alcohol use. Vitals stable on day of discharge. She also had thrombocytosis, likely reactive from fracture but advised her to have a CBC in one month to follow up. #Acute on Chronic hyponatremia -Baseline Sodium around 132 -Na 126 on admission -Asymptomatic -Likely Beer potomania -Resolved; Na 135 Plan -Insurance denied IPR. There is no medical complexity for IPR admission -Waiting on SNF auth -Backup will be home with HC #R Humeral head fracture -Ortho consulted, appreciate input -PT/OT -OP f/u with ortho #Hypotension -Asymptomatic -Lactic acid normal -No s/s infection -Mild leukocytosis, likely reactive from fall -Improved Plan -Observe off abx -Monitor temp, WBC, vitals #Alcohol abuse -Denies history of withdrawal -Continue [facility] protocol -No s/s withdrawal currently #Positive UDS -Drug and alcohol cessation counseling provided #Thrombocytosis -Plts 454 on admission, was 428 in 2023 -Plts improved to 427 -Likely reactive from Fracture -Advised she have repeat CBC in a few weeks with her PCP -If it remains elevated, may benefit from OP hematology silviano I spent a total of 42 minutes coordinating, documenting, and providing care for this patient excluding time spent in the performance of separately billed services. This included personally reviewing all current laboratories and imaging studies, medical reconciliation, outpatient chart review and discussion with specialists Admission and Anticipated Discharge Date Admission Date: September 14, 2025 Subjective Feeling well today. her only complaint is R shoulder pain. Patient denies F/C, CP, palpitations, SOB, dyspnea, abd pain, N/V/D Physical Exam Physical Exam: Vitals and labs reviewed General: Well appearing, NAD HEENT: EOMI, PERRLA Neck: Supple Cardiac: RRR no rubs gallops or murmurs Lungs: CTA no rhonchi wheezing or rales Abd: S NT ND BS positive : Deffered MSK: limited ROM in R shoulder due to pain. in Sling Ext: No Edema cyanosis Skin: Warm, Dry Neuro: AOx3 No focal deficits. Psych: Normal Mood Results & Data Results & Data Vital Signs (Past 12 Hours) Vital Signs Temp Pulse Resp BP Pulse Ox O2 Del Method O2 Flow Rate 09/16/25 07:20 Nasal Cannula 2 09/16/25 07:17 36.6 C 80 18 90/63 L 90 Nasal Cannula 2 09/16/25 05:35 96 Nasal Cannula 2 09/16/25 02:18 18 88 L Room Air 09/16/25 01:52 91 Room Air 09/16/25 01:39 37.1 C 96 H 20 95/74 L 90 Room Air 09/15/25 23:30 36.9 C 82 22 87/64 L 92 Room Air
--- NOTE | 2025-09-16 23:23 | Communication Note ---
Date of Service: September 16, 2025
[2025-09-16] MEDS: ALBUMIN 25% 25 GM/100 ML VIAL IV ONE (23:30)
[2025-09-16 23:42] LABS: Hematocrit (blood only) 30.9 % (37.0-47.0); Hemoglobin 10.2 g/dl (12.0-16.0); Immature Granulocytes # (auto) 0.04 K/uL (0.01-0.20); Immature Granulocytes % (auto) 0.3 %; Mean Corpuscular Hemoglobin 30.9 pg (25.0-34.0); Mean Corpuscular Volume 93.6 fL (80.0-100.0); Platelet Count 345 K/uL (130-400); RDW Standard Deviation 45.4 fL (36.4-46.3); Red Blood Count 3.30 M/uL (4.20-5.40); White Blood Count 12.23 K/ul (4.8-10.8)
[2025-09-16 23:59] LABS: Anion Gap 5.0 (3-11); Blood Urea Nitrogen 8.0 mg/dl (6-23); Calcium 8.8 mg/dl (8.6-10.3); Carbon Dioxide 26.0 mmol/L (21-32); Chloride 103.0 mmol/L (98-107); Creatinine Clr Calc Pharmacy 84.5 ml/min; Glucose 115.0 mg/dl (70-99(Fasting)); Potassium 3.4 mmol/L (3.5-5.1); Sodium 134.0 mmol/L (136-145)
[2025-09-17] MEDS: POTASSIUM CHLORIDE CRTAB 20 MEQ TABCR PO STA (00:20)
[2025-09-17 08:27] LABS: Hematocrit (blood only) 33.1 % (37.0-47.0); Hemoglobin 10.8 g/dl (12.0-16.0); Mean Corpuscular Hemoglobin 30.4 pg (25.0-34.0); Mean Corpuscular Volume 93.2 fL (80.0-100.0); Platelet Count 368 K/uL (130-400); RDW Standard Deviation 45.6 fL (36.4-46.3); Red Blood Count 3.55 M/uL (4.20-5.40); White Blood Count 13.01 K/ul (4.8-10.8)
[2025-09-17 08:41] LABS: Anion Gap 7.0 (3-11); Blood Urea Nitrogen 6.0 mg/dl (6-23); Calcium 9.4 mg/dl (8.6-10.3); Carbon Dioxide 25.0 mmol/L (21-32); Chloride 106.0 mmol/L (98-107); Creatinine Clr Calc Pharmacy 98.9 ml/min; Glucose 115.0 mg/dl (70-99(Fasting)); Potassium 3.7 mmol/L (3.5-5.1); Sodium 138.0 mmol/L (136-145)
--- NOTE | 2025-09-17 09:28 | Hospitalist Progress Note ---
Date of Service September 17, 2025 Assessment & Plan (1) Hypotension: Plan: 69F with PMH alcohol abuse, hyponatremia, HLD, COPD, schizophrenia, tobacco abuse who presents with R shoulder pain after a mechanical fall. X rays were negative for fracture. Ortho was consulted and ordered CT shoulder which did show an acute R humeral head fracture. She was placed in a sling. Ortho recommended she follow up with Dr. Bertrand as OP who is a shoulder specialist. She is c/o mild pain today and is eager for discharge. Her hospital course was complicated by acute on chronic hyponatremia which resolved on its own. Na 135 today which is around her baseline. blood alcohol level was .6 on admission. Likely beer potomania. UDS pos for opioids, MDMA and marijuana. She was advised of the risks of drug use and to abstain from drug and alcohol use. Vitals stable on day of discharge. She also had thrombocytosis, likely reactive from fracture but advised her to have a CBC in one month to follow up. #Acute on Chronic hyponatremia -Baseline Sodium around 132 -Na 126 on admission -Asymptomatic -Likely Beer potomania -Resolved; Na 135 Plan -Insurance denied IPR. There is no medical complexity for IPR admission -Waiting on SNF auth -Backup will be home with HC #Constipation -NO BM x 4 days -Passing gas and eating without difficulty -BS positive -Low suspicion for SBO/ileus Plan -Start miralax BID #Hypokalemia -Replace and follow -Normal today #R Humeral head fracture -Ortho consulted, appreciate input -PT/OT -OP f/u with ortho #Hypotension -Asymptomatic -Lactic acid normal -No s/s infection -Mild leukocytosis, likely reactive from fall -Relatively stable. no fevers Plan -Observe off abx -Monitor temp, WBC, vitals #Alcohol abuse -Denies history of withdrawal -Continue CIWA protocol -No s/s withdrawal currently #Positive UDS -Drug and alcohol cessation counseling provided #Thrombocytosis -Plts 454 on admission, was 428 in 2023 -Now normal -Likely reactive from fracture I spent a total of 44 minutes coordinating, documenting, and providing care for this patient excluding time spent in the performance of separately billed services. This included personally reviewing all current laboratories and imaging studies, medical reconciliation, outpatient chart review and discussion with specialists Admission and Anticipated Discharge Date Admission Date: September 14, 2025 Subjective Feeling well today. her only complaint is R shoulder pain. Patient denies F/C, CP, palpitations, SOB, dyspnea, abd pain, N/V/D Physical Exam Physical Exam: Vitals and labs reviewed General: Well appearing, NAD HEENT: EOMI, PERRLA Neck: Supple Cardiac: RRR no rubs gallops or murmurs Lungs: CTA no rhonchi wheezing or rales Abd: S NT ND BS positive : Deffered MSK: limited ROM in R shoulder due to pain. in Sling Ext: No Edema cyanosis Skin: Warm, Dry Neuro: AOx3 No focal deficits. Psych: Normal Mood Results & Data Results & Data Vital Signs (Past 12 Hours) Vital Signs Temp Pulse Resp BP Pulse Ox O2 Del Method O2 Flow Rate 09/17/25 07:35 36.8 C 82 18 108/71 93 Room Air 09/17/25 07:15 Room Air 09/17/25 01:23 37.0 C 67 18 109/65 90 Nasal Cannula 3 09/16/25 23:13 36.8 C 62 16 71/54 L 98 Nasal Cannula 3 Laboratory Results Abnormal lab results 09/16/25 09/17/25 Range/Units 23:26 08:07 WBC 12.23 H 13.01 H (4.8-10.8) K/ul RBC 3.30 L 3.55 L (4.20-5.40) M/uL Hgb 10.2 L 10.8 L (12.0-16.0) g/dl Hct 30.9 L 33.1 L (37.0-47.0) % MPV 9.0 L 9.2 L (9.4-12.4) fL Neut # (Auto) 8.91 H (1.40-6.50) K/uL [place] # (Auto) 0.72 H (0.11-0.59) K/uL Sodium 134 L (136-145) mmol/L Potassium 3.4 L (3.5-5.1) mmol/L Creatinine 0.55 L 0.47 L (0.6-1.2) mg/dl Glucose 115 H 115 H (70-99(Fasting)) mg/dl
[2025-09-17] MEDS: POLYETHYLENE (MIRALAX) 17 GM PACK PO SCH (13:42)
[2025-09-18 07:18] VITALS: RESP 18
--- NOTE | 2025-09-18 13:21 | Hospitalist Progress Note ---
Date of Service September 18, 2025 Assessment & Plan (1) Hypotension: Plan: 69F with PMH alcohol abuse, hyponatremia, HLD, COPD, schizophrenia, tobacco abuse who presents with R shoulder pain after a mechanical fall. X rays were negative for fracture. Ortho was consulted and ordered CT shoulder which did show an acute R humeral head fracture. She was placed in a sling. Ortho recommended she follow up with Dr. Bertrand as OP who is a shoulder specialist. She is c/o mild pain today and is eager for discharge. Her hospital course was complicated by acute on chronic hyponatremia which resolved on its own. Na 135 today which is around her baseline. blood alcohol level was .6 on admission. Likely beer potomania. UDS pos for opioids, MDMA and marijuana. She was advised of the risks of drug use and to abstain from drug and alcohol use. Vitals stable on day of discharge. She also had thrombocytosis, likely reactive from fracture but advised her to have a CBC in one month to follow up. #Acute on Chronic hyponatremia -Baseline Sodium around 132 -Na 126 on admission -Asymptomatic -Likely Beer potomania -Resolved; Na 135 Plan -For DC to SNF tomorrow #Constipation Resolved. BM on 09/17 Plan -Continue miralax daily #Hypokalemia resolved #R Humeral head fracture -Ortho consulted, appreciate input -PT/OT -OP f/u with ortho #Hypotension -Asymptomatic -Lactic acid normal -No s/s infection -Mild leukocytosis, likely reactive from fall -Relatively stable. no fevers Plan -Observe off abx -Monitor temp, WBC, vitals #Alcohol abuse -Denies history of withdrawal -Continue CILA protocol -No s/s withdrawal currently #Positive UDS -Drug and alcohol cessation counseling provided #Thrombocytosis -Plts 454 on admission, was 428 in 2023 -Now normal -Likely reactive from fracture I spent a total of 42 minutes coordinating, documenting, and providing care for this patient excluding time spent in the performance of separately billed services. This included personally reviewing all current laboratories and imaging studies, medical reconciliation, outpatient chart review and discussion with specialists Admission and Anticipated Discharge Date Admission Date: September 14, 2025 Subjective Feeling well today. her only complaint is R shoulder pain and it is improving. Patient denies F/C, CP, palpitations, SOB, dyspnea, abd pain, N/V/D Physical Exam Physical Exam: Vitals and labs reviewed General: Well appearing, NAD HEENT: EOMI, PERRLA Neck: Supple Cardiac: RRR no rubs gallops or murmurs Lungs: CTA no rhonchi wheezing or rales Abd: S NT ND BS positive : Deffered MSK: limited ROM in R shoulder due to pain. in Sling Ext: No Edema cyanosis Skin: Warm, Dry Neuro: AOx3 No focal deficits. Psych: Normal Mood Results & Data Results & Data Vital Signs (Past 12 Hours) Vital Signs Temp Pulse Resp BP Pulse Ox O2 Del Method 09/18/25 07:45 Room Air 09/18/25 07:17 36.8 C 66 18 105/75 91 Room Air
[2025-09-19 08:21] VITALS: BP 100/74; PULSE 58; TEMP 98.2; O2SAT 97
[2025-09-19] MEDS: POLYETHYLENE (MIRALAX) 17 GM PACK PO SCH (08:48)
--- NOTE | 2025-09-19 09:55 | Discharge Summary ---
Discharge Summary Date of Service September 19, 2025 Principal Dx & Hospital Course #1 = Principal Diagnosis (1) Hypotension: 69F with PMH alcohol abuse, hyponatremia, HLD, COPD, schizophrenia, tobacco abuse who presents with R shoulder pain after a mechanical fall. X rays were negative for fracture. Ortho was consulted and ordered CT shoulder which did show an acute R humeral head fracture. She was placed in a sling. Ortho recommended she follow up with Dr. Bertrand as OP who is a shoulder specialist. She is c/o mild pain today and is eager for discharge. Her hospital course was complicated by acute on chronic hyponatremia which resolved on its own. Na normal. blood alcohol level was .6 on admission. Likely beer potomania. UDS pos for opioids, MDMA and marijuana. She was advised of the risks of drug use and to abstain from drug and alcohol use. Vitals stable on day of discharge. She also had thrombocytosis, likely reactive from fracture but advised her to have a CBC in one month to follow up. She was originally planning to go home with home care but now will be going to SNF today #Acute on Chronic hyponatremia -Baseline Sodium around 132 -Na 126 on admission -Asymptomatic -Likely Beer potomania -Resolved; Na 135 Plan -For DC to SNF tomorrow #Constipation Resolved. BM on 09/17 Plan -Continue miralax daily #Hypokalemia resolved #R Humeral head fracture -Ortho consulted, appreciate input -PT/OT -OP f/u with ortho #Hypotension -Asymptomatic -Lactic acid normal -No s/s infection -Mild leukocytosis, likely reactive from fall -Relatively stable. no fevers Plan -Observe off abx -Monitor temp, WBC, vitals #Alcohol abuse -Denies history of withdrawal -Continue CIWA protocol -No s/s withdrawal currently #Positive UDS -Drug and alcohol cessation counseling provided #Thrombocytosis -Plts 454 on admission, was 428 in 2023 -Now normal -Likely reactive from fracture I spent a total of 46 minutes coordinating, documenting, and providing care for this patient excluding time spent in the performance of separately billed services. This included personally reviewing all current laboratories and imaging studies, medical reconciliation, outpatient chart review and discussion with specialists Notes For Next Care Provider Medication Changes From Visit oxy prn Admission HPI Per Admitting Provider History obtained from patient and records. Medical history significant for hypertension, hyperlipidemia, COPD, anxiety/mood disorder, schizophrenia, ongoing tobacco/alcohol abuse. Last confinement 2023 for urinary retention in the setting of acute back pain. No surgical intervention. Patient was cleaning her kitchen when she lost her balance and fell. No head trauma. No chest pain, SOB, LOC. Achy right shoulder pain. SBP 80s upon arrival at the ER. Medical History as above Surgical History : Ankle surgery Family History : Breast cancer, DM, heart disease, COPD Personal/Social history : 1 pack daily, alcohol abuse as per records, retired [employer] employee Discharge Exam Vitals and labs reviewed General: Well appearing, NAD HEENT: EOMI, PERRLA Neck: Supple Cardiac: RRR no rubs gallops or murmurs Lungs: CTA no rhonchi wheezing or rales Abd: S NT ND BS positive : Deffered MSK: Limited ROM in shoulder Ext: No Edema cyanosis Skin: Warm, Dry Neuro: AOx3 No focal deficits. Psych: Normal Mood Updated Medication List Medication Instructions Recorded Confirmed Type fluoxetine 40 mg capsule (Prozac) 40 mg PO QAM 06/12/20 09/14/25 History albuterol sulfate 90 mcg/actuation 2 puff inhalation Q4 PRN Wheezing 07/12/20 09/14/25 History aerosol inhaler hydroxyzine HCl 25 mg tablet 25 mg PO Q6 PRN anxiety 07/13/20 09/14/25 History bupropion HCl 100 mg tablet,12 hr 100 mg PO QAM 05/05/21 09/14/25 History sustained-release gabapentin 400 mg capsule 400 mg PO TID 05/05/21 09/14/25 History atorvastatin 20 mg tablet 20 mg PO QPM 10/16/22 09/14/25 History diclofenac sodium 1 % topical gel 2 g topical Q6 PRN JOINT PAIN 10/09/23 09/14/25 History fluoxetine 20 mg capsule 20 mg PO QAM 10/09/23 09/14/25 History albuterol sulfate 2.5 mg/3 mL 2.5 mg inhalation Q6H PRN Wheezing 05/24/24 09/14/25 History (0.083 %) solution for nebulization cholecalciferol (vitamin D3) 50 50 mcg PO DAILY 09/14/25 09/14/25 History mcg (2,000 unit) capsule (Vitamin D3) cyclobenzaprine 10 mg tablet 10 mg PO BID 09/14/25 09/14/25 History oxycodone 5 mg tablet 5 mg PO Q12H PRN pain #5 tabs 09/19/25 Rx Hospital Stay Data Consultations 09/14/25 04:01 ED Decision to Admit Stat 09/14/25 04:55 Consult Orthopedic Surgery Routine Diagnostic Imagining Performed 09/14/25 02:15 CT head/brain wo con Stat 09/14/25 13:44 CT shoulder RT wo con Stat Pending Results Patient Have Any Pending Studies at Discharge: No Discharge Instructions Given to Patient (Per Discharging Provider) Please call Dr. Cuong Bertrand, to schedule an appt for your shoulder. Please abstain from drug and alcohol use. For pain, take 1000mg tylenol three times per day x 5 days. Only take oxycodone if absolutely needed. Please ask your PCP to recheck your platelet levels in one month Total Time Total Time Spent Total Time Spent (In Minutes): 46
[2025-09-19] MEDS: INFLUENZA VACC TS2025-26(65y+)/PF (IIV3) 0.5mL Syr IM ONE (10:08)
[2025-09-19 12:38] LABS: Hydrocodone Urine NEGATIVE ng/mL (<50); Hydromor Urine NEGATIVE ng/mL (<50); MDA negative; MDEA negative; MDMA (Ecstasy) Urine, Confirm negative; Marijuana Quant, GCMS Urine 108 ng/mL (<5); Noroxycodone Urine NEGATIVE ng/mL (<50); Oxymorph Urine NEGATIVE ng/mL (<50)
== END 2025-09-19 12:10 | disposition home health service (06) | DRG 563 ==
LOC: ED 01:58 → 2S 04:14 → 3W 09-15 14:55